=== PATIENT | female | born 1960 | race Caucasian/White ===

== ENCOUNTER 2021-08-06 07:30 | Outpatient (RCR) | payer OTHER, SELFPAY ==
--- NOTE | 2021-07-09 11:10 | PTOPEVAL ---
PHYSICAL THERAPY EVALUATION AND PLAN OF CARE Thank you for referring Jeana Amezcua to [facility].? The patient is scheduled to be seen for therapy? 2x/week for 4 weeks. Please review, sign, date and return this plan of care KEMI. I agree with and certify that the following plan of care is medically necessary. Referring Physician Date Evaluation Outpatient Past Medical History Musculoskeletal History Hx Other Musculoskeletal Disorders Yes: osteopenia Diagnosis right lateral hip pain Onset several months Subjective Information Pain in right hip started Query Text:As Reported By Patient/ several months ago, Family specifically after she played a couple of golf tournaments. The pain started at the top of the right hip on the side near the crest of the hip. Over the summer she would limp off of the leg and would avoid putting pressure on it. Over the last several months the pain has somewhat subsided except for some intermittent symptoms that occur more often when she stands and moves after sitting or resting. Had foot surgery in May and just got out of a special shoe yesterday (2nd metatarsal head bone spur removal and decreased length of the metatarsal) - has not done a lot over the last month and has been afraid to walk normally. Self Report Pain Assessment Right Hip(s) Reported Pain Level 5 Pain Description Aching Pain Frequency Chronic,Intermittent Greatest Pain Intensity 9 Pain Aggravating Factors Walking,Weight Bearing/ Standing Pain Behaviors None Pain Score Pain Score 5: Self Report Interventions Used Interventions Used By Clinicians Exercise Pain Relief Interventions Used By Exercise Patient Lower Extremity Muscle Strength Testing Hip Strength Left Hip Flexion Strength 5 Normal Hip Extension Strength 3+ Fair + Hip Abduction Strength 3- Fair - Hip Medial Rotation Strength 3+ Fair + Hip Lateral Rotation Strength 4- Good - Right Hip Flexion Strength 5 Normal Hip Extension Strength 3+ Fair
--- NOTE | 2021-08-04 08:47 | PCPTNOTE ---
Patient called & cancelled scheduled appointment this date stating something came up.
--- NOTE | 2021-08-06 08:09 | PTOPEVAL ---
PHYSICAL THERAPY DISCHARGE NOTE Thank you for referring Jeana Amezcua to [facility].? Please review, sign, date and return this plan of care KEMI. I agree with and certify that the following plan of care is medically necessary. Referring Physician Date Diagnosis right lateral hip pain Onset several months Subjective Information States that she is doing Query Text:As Reported By Patient/ overall very much better. The Family last two days she has not felt anything, but sometimes she will stand up and it will hurt for a few steps and then it stops. She does all of her exercises daily and finds them to be productive. Pain Frequency Intermittent Pain Behaviors None Pain Score Pain Score 0: Self Report Interventions Used Interventions Used By Clinicians Exercise Pain Relief Interventions Used By Exercise Patient Lower Extremity Muscle Strength Testing Hip Strength Left Hip Flexion Strength 5 Normal Hip Extension Strength 4 Good Hip Abduction Strength 4+ Good + Hip Medial Rotation Strength 4 Good Hip Lateral Rotation Strength 4 Good Right Hip Flexion Strength 5 Normal Hip Extension Strength 4 Good Hip Abduction Strength 4+ Good + Hip Medial Rotation Strength 4 Good Hip Lateral Rotation Strength 4 Good Knee Strength Bilateral Knee Flexion Strength 5 Normal Knee Extension Strength 5 Normal Gait Assessment Gait Pattern Assessment Gait Pattern No Deviations/Normal General Exercise General Exercises Side Right,Bilateral Exercise Location hip Exercise Type Active,Resistive,Stretching Exercise Description -walking and stair climbing Query Text:Record Sets, Reps, - lift training and Resistance, and Position discussion to keep back flat -discussed HEP and discussed how to create and A and B day schedule Exercise Comments . Rehab Teaching Rehab Teaching Teaching Topic Rehab Teaching Topic Components Anatomy/Physiology,Diagnosis, Home Program As Pertains To Safety,Technique,Therapy Prognosis Recipient Patient Learning Preferences Demonstration,Discussion Barriers to Learning None Readiness to Learn Good Response
== END 2021-08-06 14:43 | disposition home or self-care (01) ==
LOC: ANHPT 07:30
DX: M25.551 Pain in right hip (principal)
CPT/HCPCS: 97110; 97140; 97161

== ENCOUNTER → 2021-12-02 09:44 | Outpatient (CLI) | payer OTHER, SELFPAY ==
--- NOTE | ~2021-12-02 | MR_ITS ---
EXAMINATION: MR abdomen wo/w con INDICATION: Cystic lesions of the pancreas, cystic lesions of the kidneys, and indeterminate soft tis radha mass to the spleen on recent CT TECHNIQUE: Coronal SSFSE ARC, WATER:coronal LAVA-FLEX, Coronal 2D FIESTA FatSat, Axial SSFSE BH ARC, Axial 3D DualEcho BH, Axial SSFSE-IR, Axial DWI b=500, Axial 2D FIESTA FatSat, pre and dynamic postco ntrast Axial LAVA ARC, postcontrast Coronal In and Opposed phase LAVA FLEX COMPARISON: CT, 11/12/2021 CONTRAST: Multihance, 10 cc FINDINGS: Cysts of the liver measure up to 6 mm in the left hepatic lobe. The liver is otherwise unre markable. The spleen, gallbladder, and adrenal glands are normal. No cystic pancreatic lesions are id entified. Findings on the comparison CT likely reflect fat lobulation within the pancreas. The pancre atic duct is normal in caliber. There is no intrahepatic or extrahepatic biliary dilatation. There is an 11 mm cyst of the left kidney. An 8 mm cyst is present in the right kidney. There are no patholog ically enlarged abdominal lymph nodes. The 4 mm peritoneal nodule described adjacent to the spleen conroy s signal characteristics similar to the spleen, likely representing a small splenule. There are no di lated loops of bowel. No abnormal enhancement is present after contrast administration. IMPRESSION: 1. Benign findings as detailed above. Reviewed, dictated and finalized at location A.
[2021-12-02 10:09] LABS: Estimated Glomerular Filt Rate > 60
== END ==
DX: D37.9 Neoplasm of uncertain behavior of digestive organ, unspecified (principal)
CPT/HCPCS: 74183; A9577

== ENCOUNTER → 2021-12-11 14:24 | Outpatient (CLI) | payer OTHER, SELFPAY ==
--- NOTE | ~2021-12-11 | MR_ITS ---
EXAMINATION: MR pelvis wo/w con DATE: 12/11/2021 15:49 INDICATION: Pelvic mass TECHNIQUE: Magnetic resonance imaging (MRI) of the pelvis was performed without and with 15 mL Multih ance intravenous contrast. Fullfield sequences of the pelvis included axial and coronal T2-weighted S S FSE, coronal 2D FIESTA, axial T1-weighted FSPGR, axial dual-echo T1-weighted FSPGR and axial T1 cherie ghted LAVA. Small field of view sequences included axial, sagittal and coronal T2-weighted FSE cente red on the uterus and gerardo exa. Postcontrast sequences included a time course axial T1-weighted LAVA with full-field of view of the pelvis. COMPARISON: Outside institution imaging studies including ultrasound dated 12/04/2021, 04/15/2021 and C T dated 11/08/2021 FINDINGS: 1.9 x 1.5 cm low signal intensity lesion along the left side of the uterine body corresponding to the calcified mass on prior CT most most consistent with a calcified pedunculated and degenerated uterin e fibroid. Alternatively this could represent a calcified left ovary which is otherwise not identifie d. The right ovary is normal. The anteverted uterus is otherwise unremarkable with endometrial comple x measuring <2 mm. There is however prominent thickening of the high signal intensity mucosal layer o f the endocervical canal which measures approximately 1.3 cm in diameter and raises concern for cervi jacky cancer. Bladder is normal. Visualized portion of the bowels are unremarkable. No free fluid in th e pelvis. No pathologically enlarged pelvic or inguinal lymphadenopathy. Mild lumbar levocurvature wi th mild spondylosis. Normal bone marrow signal throughout. IMPRESSION: 1. Prominent mucosal thickening of the endocervical canal which measures 13 mm in diameter and raises concern for cervical cancer. Correlate with gynecologic exam and Pap smear. 2. 1.9 x 1.5 cm low signal intensity coarsely calcified mass along the left side of the uterine body. Differential would include a degenerated pedunculated uterine fibroid, calcified left ovary or heter otopic ossification related to fat necrosis. Reviewed, dictated and finalized at location A. IMPRESSION: 1. Prominent mucosal thickening of the endocervical canal which measures 13 mm in diameter and raises concern for cervical cancer. Correlate with gynecologic exam and Pap smear. 2. 1.9 x 1.5 cm low signal intensity coarsely calcified mass along the left carlos e of the uterine body. Differential would include a degenerated pedunculated ut erine fibroid, calcified left ovary or heterotopic ossification related to fat necrosis.
== END ==
DX: R19.00 Intra-abdominal and pelvic swelling, mass and lump, unspecified site (principal); R93.89 Abnormal findings on diagnostic imaging of other specified body structures
CPT/HCPCS: 72197; A9577

== ENCOUNTER 2022-12-20 08:00 | Outpatient (RCR) | payer OTHER, SELFPAY ==
--- NOTE | 2022-10-20 09:32 | PTOPEVAL1 ---
Assessment and note entered by Марина Burnham, PT Evaluation Information Assessment Status Evaluation Diagnosis L shoulder pain Onset Apr 2022 Subjective Information gradual increase in shoulder pain; no trauma or injury to shoulder; chronic shoulder pain; previous PT for shoulder about 3 yr ago, started doing the shoulder exercises from that therapy; have foam roller--lie on it and stretch shoulder out; had x rays years ago-- OA, no recent imaging; active and do weight exercises for fitness- 5 or 8 # hand weights; have pain in R shoulder also; Reported Pain Level Pain Score Self Report Additional Pain Score Comments pain range: 2-8/10 L shoulder, anterior shoulder, dull, kind of sharp; increase pain with use of L arm, lie on shoulder, pull off shirt over head; sometimes with sleeping and lie on side- hands fall asleep- both arms; decrease pain with rest; is not taking any pain med for shoulder; have not used heat/ice- instruct on PRN use; shoulder pain does not wake her up from sleeping, is not a good sleeper--get up to bathroom and nerve pain from small fiber neuropathy wakes her; Assessment PT Clinical Summary Jeana has the diagnosis of L shoulder pain. She has chronic back and B shoulder pain. She is active and does regular exercises for fitness and uses weights for shoulder exercises, 5 or 8#. Pain is increased with use of L arm, taking off shirt over her head. With the evaluation, she has full active ROM of shoulder, with painful motions of abduction and horizontal adduction; she has poor posture of trunk and shoulder, with scoliosis of back and winging of scapula. There is tenderness with palpation over bicipital groove. Skilled PT services are indicated for L shoulder tendonitis: modalities for pain control, therapeutic exercises to strengthen scapula/ thoracic musculature and improve positioning of GH joint, with eduction for home exercises and posture correction. Plan of Care Interventions Electrical Stimulation,Hot Pack/Cold Pack,Manual Therapy,Neuro Re-education,Patient/Caregiver Education,Therapeutic Activities,Therapeutic
--- NOTE | 2022-11-22 09:58 | PTOPPROG ---
Assessment and note entered by Марина Burnham, PT Evaluation Information Assessment Status d/c for Magan joe; eval back & R hip pain Diagnosis chronic R hip and low back pain Onset Apr 2022 Subjective Information Jeana reports: SHOULDER: shoulder is still hurting, but differently--was all in front at the bicep tendon, now when wake up, whole shoulder hurts; is doing her home exercises, but theraband tends to make more pain in shoulder; SHOULDER: pain range for the past week 2- 5/10; hurts over whole shoulder when wake up in AM, with taking off shirt--back of shoulder, kind of inside shoulder; can lie on L side for about 5 min; decrease pain with position change; is not using heat/ice and is not taking any pain meds; BACK: beginning of back pain 2016, had xrays; have had PT for back, but has been awhile; does some back exercises--pelvic tilts, bridges- sometimes; does some core work and planks; wants to play golf; no imaging done in the past few years; treadmill walking 40 minutes and is OK, walking on concrete bothers her back; sleeping is OK, pain when wake up; pain when lie on her R side; tries to stay active and do yard work; BACK: pain range of 0-5/10, overall back discomfort- hurts; increase pain with activity; decrease pain with position changes; does not use heat/ice or pain meds; discussed use of heat/ice PRN Assessment PT Clinical Summary Jeana has received 8 PT sessions for L shoulder pain; She presents with new order for R hip and low back pain. Compared to the initial eval for shoulder: pain rating at the low is the same; high rating was 8 and now is 5/10; continues to have pain with taking off her shirt and lying on her L side; shoulder abduction and horizontal adduction increase her pain; initially had point tenderness over bicep tendon, now is more widespread area of pain; strength of shoulder has improved and no longer has winging of the scapula; she has been educated on home exercises.
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
--- NOTE | 2022-12-20 08:43 | PTOPDC ---
Assessment and note entered by Марина Burnham, PT Evaluation Information Assessment Status Discharge Diagnosis chronic R hip and low back pain Onset Apr 2022 Subjective Information Jeana reports: is increasing her work outs for back and shoulder for fitness with hand weights; using 3# for shoulders; R lumbar area tends to be where the pain is; still have issues lying on her L shoulder; does have some pain with vacuuming pain range in the past week of 0-5 /10; increase pain with doing yard work, leaning forward and rotation of trunk; Oswestry self assessment score of 10% limitation in activity; decrease pain with rest and stretching; have used heat a few times; EDUCATION: body mechanics with yard work, alternate tasks, preventative stretches after awkward posture; use of heat, stretch, over counter meds after yard work; posture with vaccumming Reported Pain Level Pain Score Self Report 0-5/10 in low back Assessment PT Clinical Summary Jeana has received a total of 14 PT sessions, for her L shoulder and low back pain. This last treatment session has been for her back; Improvements with her back: self assessment Oswestry functional score from 28% to 10% limitation in activity level; trunk and hip strength and stabilization with activity; body mechanics and posture with home and work tasks; progression of HEP and activity tolerances; Her pain rating is the same at 0-5/10, but reports it is not as bad, able to do more before it starts hurting; The goals were partially met. Discharge PT services, and she is to continue with her home exercises and pain management techniques Plan of Care PT Services Indicated No
== END 2023-01-03 08:41 | disposition home or self-care (01) ==
LOC: ANHPT 08:00
DX: M25.512 Pain in left shoulder (principal)
CPT/HCPCS: 97110; 97112; 97140; 97161; 97530

== ENCOUNTER 2024-12-06 04:32 | Emergency (ER) | payer MEDICARE, OTHER, SELFPAY ==
[2024-12-06 04:33] VITALS: BP 156/79; PULSE 75; RESP 16; TEMP 36.4; O2SAT 98
--- OUTSIDE RECORDS SUMMARY | 2024-12-06 04:34 | XMS_ITS | Clinical Summary ---
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 10/27/2020 Active Cholecalciferol (VITAMIN D3) 50 MCG (2000 UT) Tab Take 1 tablet (50 mcg total) by mouth daily. 10/27/2020 Active PREMPRO 0.3-1.5 MG tablet Take 1 tablet by mouth daily. 10/27/2020 Active cycloSPORINE (RESTASIS) 0.05 % ophthalmic emulsion Apply 1 drop to eye every 12 (twelve) hours. Active ibandronate 150 MG tablet Take 1 tablet (150 mg total) by mouth monthly. On a break from this until after bone scan next year. 11/21/2020 Active [place]-3 Fatty Acids (FISH OIL) 500 MG capsule Take 500 mg by mouth 2 (two) times a day. Active Multiple Vitamins-Minera ls (CENTRUM SILVER ULTRA WOMENS OR) Take 1 tablet by mouth daily. Active gabapentin (NEURONTIN) 300 MG capsule Take 2 capsules (600 mg total) by mouth 3 (three) times daily. 600 morning, 600 2pm 600 evening/PM Active Active Problems No known active problems Encounters Date Type Department Care Team Description 10/12/2024 11:42 AM RUNNING RIGGER - 10/12/2024 11:59 PM [facility] Hospital Encounter [facility] [place] [address] Vitor Marcus NP Discharge Disposition: Home or Self Care (Routine Discharge) 10/12/2024 Travel from Last 3 Months Immunizations Immunization Administration Dates Next Due PFIZER COVID-19 (ORIGINAL FO RMULATION, PURPLE CAP) mRNA, LNP-S, PF, 30 MCG/0.3 ML DOSE 08/30/2020,08/09/2020 Family History Medical History Relation Comments COPD Brother prostate leukemia Father COPD Mother No Known Problems Sister Relation Status Comments Brother Alive Father Mother Sister Alive Social History Tobacco Use Types Packs/Day Years Used Date Smoking Tobacco: Never Smokeless Tobacco: Never Comments No Sex and Gender Information Value Date Recorded Sex Assigned at Female 10/12/2024 11:37 AM RUNNING RIGGER Legal Sex Female 4:03 PM CDT Gender Identity Not on file Sexual Orientation Not on file Last Filed Vital Signs Vital Sign Reading Time Taken Comments Blood Pressure 122/69 07/03/2024 10:30 AM RUNNING RIGGER Pulse 85 07/03/2024 10:30 AM RUNNING RIGGER Temperature 36.1 C (97 F) 07/03/2024 10:30 AM RUNNING RIGGER Respiratory Rate 16 07/03/2024 10:3 0 AM RUNNING RIGGER Oxygen Saturation 100% 07/03/2024 10: 30 AM RUNNING RIGGER Inhaled Oxygen Concentration - - Weight 52.1 kg (114 lb 13.8 oz) 07/03/2024 6:57 AM RUNNING RIGGER Height 168.9 cm (5' 6.5 ) 07/03/2024 6:57 AM RUNNING RIGGER Body Mass Index 18.26 07/03/2024 6:57 AM RUNNING RIGGER Plan of Treatment Health Maintenance Due Date Last Done Comments Colorectal Cancer Screening Colonoscopy (10 Years) 1959 Hepatitis C 1977 COVID-19 Vaccine ( season) 2024 07/20/2023, 08/30/2020, 08/09/2020 Mammogram Screening 10/12/2026 10/12/2024, 10/11/2023, 11/11/2022, Additional history exists DTaP, Tdap and Td Vaccines (3 - Td or Tdap) 11/07/2028 11/07/2018, 10/28/2008 RSV Immunization or 60+ Years (1 - 1-dose 75+ series) 2034 Zoster Vaccines Completed 01/08/2020, 09/28/2019 Dexa Scan (General) Completed 10/07/2022, 08/25/2020, 08/09/2018 Pneumococcal Vaccine: 50+ Years Completed 10/02/2024 Meningococcal B Vaccine Aged Out No l onger eligible based on patient's age to complete this topic Meningococcal Vaccine Aged Out No bryce jc eligible based on patient's age to complete this topic RSV Immunizations Under 20 Months Aged Out No longer eligible based on patient's age to complete this topic Medical Devices Implanted Type 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 Device 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 Shelf Expiration Date Model / Serial / Lot Snap Off Screw 2.0mm X 12mm Implanted:Qty: 1 on 06/09/2021 by Justo Prabhakar DPM at [facility] Screw Right: Toe [employer] [id number] / / Description:2nd metatarsal Cannulated Screw Implanted:Qty: 1 on 07/03/2024 by Justo Prabhakar DPM at [facility] Screw Left: Foot [employer] [id number] 07/28/2030 [id number] / / [id number] [employer] Edge Screw Implanted:Qty: 1 on 07/03/2024 by Justo Prabhakar DPM at [facility] Screw Left: Toe [employer] [id number] 02/29/2032 [id number] / / [id number] Description:2ND TOE Procedures Procedure Name Priority Date/Time Associated Diagnosis Comments MG SCREENING W LU JENSEN DIGI Routine 10/12/2024 12:05 PM RUNNING RIGGER Encounter for screening mammogram for malignant neoplasm of breast BONE DENSITY/DEXA Routine 10/07/2022 11: 02 AM RUNNING RIGGER Encounter for screening for osteoporosis from Last 3 Months or Most Recently Relevant to Health Maintenance Results * MG SCREENING W LU JENSEN DIGI (10/12/2024 12:05 PM RUNNING RIGGER) Anatomical Region Laterality Modality Breast Bilateral Mammography 10/12/2024 1:09 PM RUNNING RIGGER Impressions 10/12/2024 1:10 PM RUNNING RIGGER ===== IMPRESSION: ===== 1. Stable mammographic appearance with no new findings to suggest malignancy in either breast. Assessment: ACR BI-RADS 2 - BENIGN FINDING(S) Recommendation: 1:Routine Screening Bilateral Comments: Ordered By: VITOR MARCUS Interpreted By: Yuri Milner MD, 10/12/2024 1:09 PM Narrative 10/12/2024 1:10 PM RUNNING RIGGER [facility] [address] [place] [address] Examination: Digital bilateral screening mammogram with 3D Tomosynthesis Exam Date/Time: 10/12/2024 11:45 AM Reason For Exam: Benign right biopsy 2020. No personal or family history of breast cancer. No current complaints. Comparison: Mammograms from 10/11/2023 10/07/2022 09/30/2021 Technique: Digital screening mammography of both breasts was performed in addition to 3-D Tomosynthesis technique. This study was read with the assistance of a computer-aided detection system. Tissue density: The breasts are heterogeneously dense, which may obscure small masses. Findings: Biopsy marker again seen on the right. Benign axillary lymph nodes again seen. Benign round calcifications again seen. No suspicious interval change in parenchyma bilaterally from prior studies. There is no new focal asymmetry, dominant mass lesion, area of skin thickening, or cluster of suspicious appearing calcifications in either breast to suggest malignancy. us Vitor Marcus [facility] MAMMO Final Re sult * BONE DENSITY/DEXA (10/07/2022 11:02 AM RUNNING RIGGER) Anatomical Region Laterality Modality Bone Mammography 10/07/2022 11:0 6 AM RUNNING RIGGER Impressions 10/07/2022 11:07 AM RUNNING RIGGER IMPRESSION: WHO Classification: osteopenia. 4.5% interval decrease in bone mineral density of the right hip from 2020 comparison. FRAX: 1.0% chance of hip fracture and 8.2% chance of major osteoporotic fracture over the next 10 years. Referred By: VITOR MARCUS Interpreted By: Yuri Milner MD, 10/07/2022 11:06 AM Narrative 10/07/2022 11:07 AM RUNNING RIGGER Examination: Bone Density Axial Exam Date/Time: 10/07/2022 10:48 AM Reason For Exam: Encounter for screening for osteoporosis Postmenopausal Comparison: 08/25/2020 DEXA scan Findings: DEXA bone densitometry The bone mineral density (BMD) was determined by dual-energy x-ray absorptiometry, the results are as follows: AP Lumbar Spine L1 through L4 BMD Patient (GM/SQCM): 0.793 T-Score (Standard deviations from young adult peak bone density): -2.3 Right femoral neck: BMD Patient (GM/SQCM): 0.659 T-Score (Standard deviations from young adult peak bone density): -1.7 Total Right femur: BMD Patient (GM/SQCM): 0.719 T-Score (Standard deviations from young adult peak bone density): -1.8 Recommendations: All patients should ensure an adequate intake of dietary calcium and vitamin D. The NOF recommend adults under the age of 50 need 1000 mg of calcium and 400-800 IU of vitamin D daily. Effective therapy for the prevention and treatment of osteoporosis include biphosphonates. Follow-up: People with diagnosed cases of osteoporosis or at high risk for fracture should have regular bone mineral density test. For patients eligible for Medicare, routine testing is allowed once every 2 years. Testing frequency can be increased to one year for patients who have rapidly progressing disease, those who are receiving or discontinuing medical therapy to restore bone mass, or have additional risk factors. Procedure Note Yuri Milner MD - 10/07/2022 Examination: Bone Density Axial Exam Date/Time: 10/07/2022 10:48 AM Reason For Exam: Encounter for screening for osteoporosis Postmenopausal Comparison: 08/25/2020 DEXA scan Findings: DEXA bone densitometry The bone mineral density (BMD) was determined bydual-energy x-ray absorptiometry, the results are as follows: AP Lumbar Spine L1 through L4 BMD Patient (GM/SQCM): 0.793 T-Score (Standard deviations from young adult peak bonedensity): -2.3 Right femoral neck: BMD Patient (GM/SQCM): 0.659 T-Score (Standard deviations from young adult peak bonedensity): -1.7 Total Right femur: BMD Patient (GM/SQCM): 0.719 T-Score (Standard deviations from young adult peak bonedensity): -1.8 Recommendations: All patients should ensure an adequate intake of dietary calcium andvitamin D. The NOF recommend adults under the age of 50 need 1000 mg ofcalcium and 400-800 IU of vitamin D daily. Effective therapy for theprevention and treatment of osteoporosis include biphosphonates. Follow-up: People with diagnosed cases of osteoporosis or at high risk for fractureshould have regular bone mineral density test. For patients eligible forMedicare, routine testing is allowed once every 2 years. Testing frequencycan be increased to one year for patients who have rapidly progressingdisease, those who are receiving or discontinuing medical therapy torestore bone mass, or have additional risk factors. IMPRESSION: WHO Classification: osteopenia. 4.5% interval decrease in bone mineraldensity of the right hip from 2020 comparison. FRAX: 1.0% chance of hip fracture and 8.2% chance of major osteoporoticfracture over the next 10 years. 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
--- OUTSIDE RECORDS SUMMARY | 2024-12-06 04:35 | XMS_ITS | Continuity of Care Document ---
Author Name [facility] Organization [facility] Care Team Providers Care Executive Compensation Analyst Name Role Phone [facility] Unavailable Unavailable Problems Combined list of problems from Department of Defense and Veterans Affairs facilities. It does not include entries that were removed or entered in error. Problem Status Onset Date Problem Type Date of Resolution Comments Source Vaccination given Active 11/06/2024 Diagnosis 0 [facility] Vaccination given Active 10/23/2024 Diagnosis 0 [facility] Well female adult Active 09/27/2024 Diagnosis 6 130C[facility]Af[facility] Basal cell carcinoma of skin Active Condition 6130C-A f-C- [facility] Dysplasia of cervix Active Condition 00[facility] Osteopenia Active Condition [facility] Osteoporosis Active Condition [facility] Small fiber neuropathy Active Condition 6130C-Af[facility]C- [facility] Medications Combined list of outpatient medications from Department of Defense and Veterans Affairs facilities.Medications provided include 1) outpatient medications from the last 15 months, and 2) patient-reported medications. Medication Details Route Status Patient Instructions Prescription Expires Prescription Number Last Dispense Date Ordering Provider Order Date Order Qty Source Boniva 150 mg oral tablet 1 tab(s), Oral, every month, # 3 tab(s), 3 total refill(s ), [facility], Pharmacy : [facility] Oral (given by mouth) Ordered 4 2022 3.0 0055C-3 [facility] calcium (as carbonate) 500 mg oral tablet See Instruct ions, take 1 tab bid, # 180 tab(s), 3 total refill(s ), [facility] Ordered 5 2023 180.0 0055C-3 [facility] calcium (as carbonate) 600 mg oral tablet 180 tab(s), 0 total refill(s ), Soft Stop Complet ed 10/03/20232023 0055C-3 75th SONIA [facility] calcium (as carbonate) 600 mg oral tablet 1 tab(s), Oral, BID, # 180 tab(s), 3 total refill(s ), [facility], Pharmacy : [facility] Oral (given by mouth) Discont inued 04/17/2024 4 2023 180.0 [facility] Centrum Silver oral tablet 1 tab(s), Oral, Daily, # 90 tab(s), 3 total refill(s ), [facility], [facility] Oral (given by mouth) Ordered 2022 90.0 0055C-[address] [facility] cholecalcif [place] 50 mcg (2000 intl units) oral tablet TAKE ONE TABLET BY MOUTH DAILY, # 90 EA, 2 total refill(s ), Acute Discont inued 04/13/2023 2 2022 90.0 Ambulat ory Pharmac y conjugated estrogens-m edroxyproge sterone 0.3 mg-1.5 mg oral tablet TAKE ONE TABLET BY MOUTH EVERY DAY, # 84 EA, 2 total refill(s ), Acute Complet ed 2023 2 2022 84.0 Ambulat ory Pharmac y cycloSPORIN E 0.05% (PF) eye drops UD [30EA] See Instruct ions, # 60 EA, 6 total refill(s ), Hard Stop Complet ed 07/31/2024 4 2023 60.0 Ambulat ory Pharmac y gabapentin Oral, 0 total refill(s ), [facility] (given by [facility]) Ordered 2023 6130C-A f-C-375 [facility] gabapentin 100 mg oral capsule 60 cap(s), 0 total refill(s ), Soft Stop Discont inued 04/13/20232022 0055C-3 75th SONIA [facility] gabapentin 300 mg capsule 600 mg, Oral, BID, # 360 EA, 3 total refill(s ), Hard Stop Oral (given by mouth) Discont inued 05/02/2023 3 2022 360.0 Ambulat ory Pharmac y gabapentin 300 mg capsule See Instruct ions, # 120 EA, 11 total refill(s ), Hard Stop Complet ed 02/22/2024 3 2023 120.0 Ambulat ory Pharmac y gabapentin 300 mg capsule See Instruct ions, Oral, # 630 EA, 3 total refill(s ), Hard Stop Oral (given by mouth) Ordered 04/19/2025 5 2024 630.0 Ambulat ory Pharmac y gabapentin 300 mg capsule See Instruct ions, Oral, TID, # 540 EA, 3 total refill(s ), Hard Stop Oral (given by mouth) Discont inued 04/19/2024 4 2023 540.0 Ambulat ory Pharmac y gabapentin 300 mg oral capsule 120 cap(s), 0 total refill(s ), Soft Stop Discont inued 04/13/20232022 0055C-3 [facility] gabapentin 300 mg oral capsule 360 cap(s), 0 Refill(s ), 0 total refill(s ), Soft Stop Discont inued 10/03/20232023 6130C-A f-C-[facility] [place] gabapentin 300 mg oral capsule TAKE ONE CAPSULE THREE TIMES DAILY, # 270 EA, 2 total refill(s ), Acute Discont inued 10/03/2023 3 2023 270.0 Ambulat ory Pharmac y gabapentin 300 mg oral capsule 540 cap(s), 0 Refill(s ), 0 total refill(s ), Soft Stop Discont inued 04/17/20242023 0055C-3 [facility] ibandronate 150 mg oral tablet 3 tab(s), 0 total refill(s ), Soft Stop Discont inued 04/13/20232022 0055C-3 [facility] ibandronate 150 mg oral tablet 3 tab(s), 0 Refill(s ), 0 total refill(s ), Soft Stop Discont inued 04/17/20242023 0055C-3 75[facility] ibandronate 150 mg tablet See dose instruct ions in comments , # 3 EA, 1 total refill(s ), Acute Complet ed 2023 3 2022 3.0 Ambulat ory Pharmac y metroNIDAZO LE 1% gel [60g] See Instruct ions, # 60 g, 2 total refill(s ), Hard Stop Ordered 08/03/2025 5 2024 60.0 Ambulat ory Pharmac y omega-3 polyunsatur ated fatty acids 1000 mg oral capsule TAKE ONE CAPSULE BY MOUTH THREE TIMES A DAY WITH A MEAL, # 270 EA, 3 total refill(s ), Acute Complet ed 04/14/20232022 270.0 Ambulat ory Pharmac y Oyster Jacky 1250 mg (500 mg elemental calcium) oral tablet 180 tab(s), 0 Refill(s ), 0 total refill(s ), Soft Stop Cancele d 04/17/20242023 0055C-3 [facility] Prempro 0.3 mg-1.5 mg oral tablet 84 tab(s), 0 total refill(s ), Soft Stop Discont inued 04/13/20232022 0055C-3 [facility] Prempro 0.3 mg-1.5 mg oral tablet 1 tab(s), Oral, every other day, # 56 tab(s), 4 total refill(s ), [facility], Pharmacy : [facility] Oral (given by mouth) Ordered 5 2023 56.0 0055C-3 [facility] Prempro 0.3 mg-1.5 mg oral tablet 1 tab(s), Oral, Daily, # 90 tab(s), 3 total refill(s ), [facility], Pharmacy : [facility] Oral (given by mouth) Discont inued 04/17/2024 3 2023 90.0 0055C-3 [facility] Restasis 0.05% ophthalmic emulsion 180 unknown unit, 0 total refill(s ), Soft Stop Discont inued 10/03/20232023 0055C-3 75th [facility] [place] scopolamine 1 mg/72 hr transdermal film, extended release 1 patch(es ), TransDer mal, every 72 hr, # 10 patch(es ), 0 total refill(s ), Tia young, Pharmacy : [facility] TransD ermal (apply on the skin) Complet ed 04/17/2024 2023 10.0 6130C-A f-C-375 Th [facility] scopolamine 1 mg/72 hr transdermal film, extended release 10 patch(es ), 0 Refill(s ), 0 total refill(s ), Soft Stop Discont inued 04/17/20242023 0055C-3 75th [facility] [place] Vitamin D3 50 mcg (2000 intl units) oral tablet 90 tab(s), 0 total refill(s ), Soft Stop Ordered 2022 0055C-3 75th [facility] Allergies, Adverse Reactions, Alerts Combined list of allergies from Department of Defense and Veterans Affairs facilities. It does not include entries that were removed or entered in error. Substance Category Reaction Severity Reaction type Status Date Reported Comments Source Latex Allergy to substance Rash Moderate Active 04/13/2023 0055C-37 5th [facility] Immunizations Combined list of available immunizations from the Department of Defense and Veterans Affairs facilities. 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 Status Comments Source typhoid vaccine, parenteral 2024 ARCELIARGARCIAFA JAZMIN Campbell cynthia, left (delt oid) [id number] sanofi pasteur complet ed typhoid vaccine, parentera l 11/06/24 Given 0055C-3 75th [facility] [place] hepatitis A adult vaccine 2024 SINANGARCIAFA JAZMIN Campbell cynthia, right (delt oid) [id number] [employer] ne complet ed hepatitis A adult vaccine 10/23/24 Given 0055C-3 75th [facility] [place] pneumococcal 20-valent conjugate vaccine 2024 ELADIA Thompsonul cynthia, right (delt oid) [id number] Pfizer Inc complet ed pneumococ jacky 20-valent conjugate vaccine 10/02/24 Given 0055C-3 [facility] COVID-19 vaccine(Comir ravinder 12y+) 2022 CASSIDY ROBROSAMARIA marie, right (delt oid) [id number] [employer] complet ed COVID-19 vaccine(C omirnaty 12y+) 07/20/23 Given 0055C-3 [facility] COVID Vaccine Pfizer 2020 ALEXRGARCIAFA [id number] 208 complet ed COVID Vaccine Pfizer 08/30/20 Recorded 0055C-3 [facility] COVID Vaccine Pfizer 2019 ALEXRGARCIAFA NTAUZZI 208 complet ed COVID Vaccine Pfizer 08/09/20 Recorded 0055C-3 [facility] zoster vaccine, inactivated 2019 zzRig ht Arm [id number] 187 GlaxoSmithKli ne complet ed zoster vaccine, inactivat ed 01/08/20 Given Ambulat ory Pharmac y zoster vaccine, inactivated 2019 [id number] 187 GlaxoSmithKli ne complet ed zoster vaccine, inactivat ed 01/08/20 Given Ambulat ory Pharmac y zoster vaccine, inactivated 2019 zLuis Fernando t Arm [id number] 187 GlaxoSmithKli ne complet ed zoster vaccine, inactivat ed 09/28/19 Given Ambulat ory Pharmac y tetanus-dipht h toxoids (Td) adult/adol 2018 zzRig ht Arm [id number] 09 sanofi pasteur complet ed tetanus-d iphth toxoids (Td) adult/ado l 11/07/18 Given Ambulat ory Pharmac y tetanus-dipht h toxoids (Td) adult/adol 2018 [id number] 09 sanofi pasteur complet ed tetanus-d iphth toxoids (Td) adult/ado l 11/07/18 Given Ambulat ory Pharmac y hepatitis B adult vaccine 2008 zzRig ht Arm [id number] 43 GlaxoSmithKli ne complet ed hepatitis B adult vaccine 10/28/08 Given Ambulat ory Pharmac y tetanus, diphtheria, acellular pertu is 2008 zzLef t Arm [id number] 115 GlaxoSmithKli ne complet ed tetanus, diphtheri a, acellular pertussis 10/28/08 Given Ambulat ory Pharmac y hepatitis B adult vaccine 2008 [id number] 43 GlaxoSmithKli ne complet ed hepatitis B adult vaccine 10/28/08 Given Ambulat ory Pharmac y tetanus, diphtheria, acellular pertu is 2008 [id number] 115 GlaxoSmithKli ne complet ed tetanus, diphtheri a, acellular pertussis 10/28/08 Given Ambulat ory Pharmac y HepB, Adult 2008 CAPTCHRISTOPH ERRWEISGARBER [id number] 43 complet ed Result Comment: Route: Intramusc ular(IM) Manufactu rer: Bobbi gan (SKB) 6130C-A f-C-[facility] varicella virus vaccine 2001 21 complet ed varicella virus vaccine 10/13/01 Given Ambulat ory Pharmac y varicella virus vaccine 2000 21 complet ed varicella virus vaccine 04/14/01 Given Ambulat ory Pharmac y hepatitis B adult vaccine 2000 43 complet ed hepatitis B adult vaccine 04/03/01 Given Ambulat ory Pharmac y HepB, Adult 2000 CAPTCHRISTOPH ERRWEISGARBER 43 complet ed Result Comment: Route: Unknown Manufactu rer: () 6130C-A f-C-375 [facility] hepatitis B adult vaccine 2000 43 complet ed hepatitis B adult vaccine 03/03/01 Given Ambulat ory Pharmac y HepB, Adult 2000 CAPTCHRISTOPH ERRWEISGARBER 43 complet ed Result Comment: Route: Unknown Manufactu rer: () 6130C-A f-C-375 [facility] Results Combined list of recent chemistry, hematology and other laboratory results from Department of Defense and Veterans Affairs, ranging from 15 months to all on record, depending upon the facility. Order Name Results Value Reference Range Date Interpretation Specimen Comments Source Chemistry eGFR CKD EPI 82 mL/min/1 .73_m2 09/05 Interpretiv e Data: Estimated Glomerular Filtration Rate (eGFR) calculated using the 2020 Chronic Kidney Disease-Epi demiology (CKD-EPI) Collaborati on creatinine equation; units of measure are mL/min/1.73 m2. Results are only valid for adults (>=18 years) whose serum creatinine is in steady state. eGFR calculation s are not valid for patients with acute kidney injury and for patients on dialysis. Creatinine- based estimates of kidney function may also be inaccurate in patients with reduced creatinine generation due to decreased muscle mass (e.g., malnutritio n, severe hypoalbumin emia, sarcopenia, chronic neuromuscul ar disease, amputations , severe heart failure or liver disease) and in patients with increased creatinine generation due to increased muscle mass (e.g., muscle builders, anabolic steroids) or increased dietary intake. CKD is diagnosed based on abnormaliti es of kidney structure or function, present for >3 months, with implication s for health and disease. CKD is classified and staged based on cause, eGFR and albuminuria (quantified as urine albumin to creatinine ratio). An eGFR >60 mL/min/1.73 m2 in the absence of increased urine albumin excretion or structural abnormaliti es does not CKD. eGFR provides only an estimate of measured GFR within +/- 30% for most patients. As mentioned, nutritional status and muscle mass, among many factors, may lead to inaccuracy in the estimate. Consider ordering the creatinine- cystatin C panel if better accuracy is needed for clinical decision-jessica olson. eGFR (mL/min/1.7 3 m2) CKD stage Interpretat ion Normal 60-89 Mild decrease 45-59 Mild to moderate decrease 30-44 Moderate to severe decrease 15-29 Severe decrease <15 Kidney failure -3 75th [facility] Hematolog y Baso Absolute 0.0 x10^3/mc L 0.0 - 0.1103 09/05 N 0055A-[address] [place] [address] Hematolog y Lymph Absolute 1.2 x10^3/mc L 1.2 - 4.0103 09/05 N 0055A-[address] [place] [address] Hematolog y Eosinophil % Auto 3 % 0 - 5 09/05 N 0055A-[address] [place] [address] Hematolog y Lymphocyte % Auto 31.9 % 20.0 - 40.0 09/05 N 0055A-[address] [place] [address] Hematolog y Basophil % Auto 0.5 % 0.0 - 2.5 09/05 N 0055A-[address] [place] [address] Hematolog y Eos Absolute 0.1 x10^3/mc L 0.0 - 0.7103 09/05 N 0055A-[address] [place] [address] Hematolog y Neutro Absolute 2.0 x10^3/mc L 2.0 - 7.0103 09/05 N 0055A-[address] [place] [address] Hematolog y Neutrophil % Auto 52.5 % 46.0 - 77.0 09/05 N 0055A-[address] [place] [address] Hematolog y Monocyte % Auto 12 % 1 - 12 09/05 N 0055A-[address] [place] [address] Hematolog y [facility] Absolute 0.5 x10^3/mc L 0.2 - 0.8103 09/05 N 0055A-[address] [place] [address] Chemistry Calcium 9.6 mg/dL 8.4 - 10.2 09/05 N 0055A-[address] [place] [address] Chemistry BUN/Creat Ratio 20 mg/dL 12 - 20 09/05 N 0055A-[address] [place] [address] Chemistry BUN 16 mg/dL 7 - 20 09/05 N 0055A-[address] [place] [address] Chemistry CO2 28 mmol/L 22 - 29 09/05 N 0055A-[address] [place] [address] Chemistry Chloride 107 mmol/L 98 - 107 09/05 N 0055A-[address] [place] [address] Chemistry Potassium Lvl 4.1 mmol/L 3.5 - 5.1 09/05 N 0055A-[address] [place] [address] Chemistry Glucose Lvl 87 mg/dL 74 - 99 09/05 N 0055A-[address] [place] [address] Chemistry Creatinine Level 0.80 mg/dL 0.57 - 1.11 09/05 N 0055A-[address] [place] [address] Chemistry Sodium 143 mmol/L 136 - 145 09/05 N 0055A-[address] [place] [address] Chemistry AGAP 8.00 0.00 - 15.00 09/05 N 0055A-[address] [place] [address] Hematolog y WBC 3.8 x10^3/mc L 4.0 - 11.0103 09/05 L 0055A-[address] [place] [address] Hematolog y RDW 11.9 % 11.0 - 14.9 09/05 N 5A-[address] [place] [address] Hematolog y MCH 32 pg 28 - 33 09/05 N 0055A-[address] [place] [address] Hematolog y Hemoglobin 13.9 g/dL 11.0 - 15.0 09/05 N 5A-[address] [place] [address] Hematolog y Hematocrit 41 % 34 - 46 09/05 N 5A-[address] [place] [address] Hematolog y Platelets 175.0 x10^3/mc L 150.0 - 450.0103 09/05 N -[address] [place] [address] Hematolog y RBC 4.4 x10^6/mc L 3.6 - 5.0106 09/05 N -[address] [place] [address] Hematolog y MPV 10.8 fL 7.4 - 10.4 09/05 H - [address] [place] [address] Hematolog y MCHC 33.7 g/dL 33.0 - 36.5 09/05 N -[address] [place] [address] Hematolog y MCV 94 fL 80 - 97 09/05 N -[address] [place] [address] Chemistry eAvg Glucose 94 mg/dL 09/05-[address] [place] [address] Chemistry Hemoglobin A1c 4.9 % 4.0 - 5.6 09/05 N Interpretiv e Data: Normal: 4.0 - 5.6% Increased Risk: 5.7 - 6.4% Diabetic Range: 6.5% For patients without diabetes, the normal range for the hemoglobin A1c test is between 4% and 5.6%. Hemoglobin A1c levels between 5.7% and 6.4% indicate increased risk of diabetes, and levels of 6.5% or higher indicate diabetes. Because studies have repeatedly shown that out-of-cont rol diabetes results in complicatio ns from the disease, the goal for people with diabetes is a hemoglobin A1c less than 7%. The higher the hemoglobin A1c, the higher the risks of developing complicatio ns related to diabetes. If confirmatio n is needed, consider recalling the patient and ordering Hemoglobin Electrophor esis. [address] [place], [place] [address] Chemistry HDL Cholesterol 64 mg/dL 40 - 59 09/05 H Interpretiv e Data: HDL (HIGH DENSITY LIPOPROTEIN ): ADULTS: Low: < 40 mg/dL High: >/= 60 mg/dL AGES 0 -19: Low: < 40 mg/dL Borderline Low: 40 - 45 mg/dL Acceptable: > 45 mg/dL [address] [place], [place] [address] Chemistry Cholesterol Total 189 mg/dL 09/05 N Interpretiv e Data: According to the [place] [employer] : AGES 0-19: Desirable: < 170 mg/dL Borderline High: 170-199 mg/dL High Blood Cholesterol : >/= 200 mg/dL ADULTS: Desirable < 200 mg/dL Borderline High: 200-239 mg/dL High Blood Cholesterol : >/= 240 mg/dL [facility] Chemistry Chol/HDL 3 mg/dL 09/[address] [place], [place] [address] Chemistry Triglycerid es 59 mg/dL 7 - 149 09/05 N Interpretiv e Data: AGES 0-9: Desirable: < 75 mg/dL Borderline High: 75-99 mg/dL High: >/= 100 mg/dL AGES 10-19: Desirable: < 90 mg/dL Borderline High: 90-129 mg/dL High: >/= 130 mg/dL ADULTS: Desirable: < 150 mg/dL Borderline High: 150-199 mg/dL High: >/= 240 mg/dL Very High: >/= 500 mg/dL [address] [place], [place] [address] Chemistry LDL/HDL 2 09/[address] [place] [address] [facility] Chemistry LDL 118 mg/dL 100 - 130 09/05 N Interpretiv e Data: AGES 0-19: Desirable: < 110 mg/dL Borderline High: 110-129 mg/dL High: >/= 130 mg/dL ADULTS: Desirable: <100 mg/dL Near/above optimal: 100-130 mg/dL Borderline High: 131-159 mg/dL High: 160-189 mg/dL Very High: 190 mg/dL [address] [place], [place] [address] Chemistry Uric Acid 4.6 mg/dL 2.6 - 6.0 05/[address] [place] [address] [facility] Chemistry Triglycerid es 55 mg/dL 7 - 149 04/19 N Interpretiv e Data: AGES 0-9: Desirable: < 75 mg/dL Borderline High: 75-99 mg/dL High: >/= 100 mg/dL AGES 10-19: Desirable: < 90 mg/dL Borderline High: 90-129 mg/dL High: >/= 130 mg/dL ADULTS: Desirable: < 150 mg/dL Borderline High: 150-199 mg/dL High: >/= 240 mg/dL Very High: >/= 500 mg/dL [address] [place] [address] [facility] Chemistry LDL/HDL 2 04/[address] [place] [address] [facility] Chemistry LDL 124 mg/dL 100 - 130 04/19 N Interpretiv e Data: AGES 0-19: Desirable: < 110 mg/dL Borderline High: 110-129 mg/dL High: >/= 130 mg/dL ADULTS: Desirable: <100 mg/dL Near/above optimal: 100-130 mg/dL Borderline High: 131-159 mg/dL High: 160-189 mg/dL Very High: 190 mg/dL [address] [place] [address] [facility] Chemistry HDL Cholesterol 69 mg/dL 40 - 59 04/19 H Interpretiv e Data: HDL (HIGH DENSITY LIPOPROTEIN ): ADULTS: Low: < 40 mg/dL High: >/= 60 mg/dL AGES 0 -19: Low: < 40 mg/dL Borderline Low: 40 - 45 mg/dL Acceptable: > 45 mg/dL [address] [place] [address] Chemistry Cholesterol Total 202 mg/dL 04/19 H Interpretiv e Data: According to the [place] [employer] : AGES 0-19: Desirable: < 170 mg/dL Borderline High: 170-199 mg/dL High Blood Cholesterol : >/= 200 mg/dL ADULTS: Desirable < 200 mg/dL Borderline High: 200-239 mg/dL High Blood Cholesterol : >/= 240 mg/dL [address] [place] [address] [facility] Chemistry Chol/HDL 3 mg/dL 04/[address] [place] [address] [facility] Chemistry Hemoglobin A1c 4.9 % 4.0 - 5.6 04/19 N Interpretiv e Data: Normal: 4.0 - 5.6% Increased Risk: 5.7 - 6.4% Diabetic Range: 6.5% For patients without diabetes, the normal range for the hemoglobin A1c test is between 4% and 5.6%. Hemoglobin A1c levels between 5.7% and 6.4% indicate increased risk of diabetes, and levels of 6.5% or higher indicate diabetes. Because studies have repeatedly shown that out-of-cont rol diabetes results in complicatio ns from the disease, the goal for people with diabetes is a hemoglobin A1c less than 7%. The higher the hemoglobin A1c, the higher the risks of developing complicatio ns related to diabetes. If confirmatio n is needed, consider recalling the patient and ordering Hemoglobin Electrophor esis. 0055A-3 75th [facility] Chemistry eAvg Glucose 94 mg/dL 04/19 0055A-3 75th [facility] AP Specimens HPV Genotype 16 Negative 20 (04/17/24 11:14 AM) Negative 04/17 N Interpretiv e Data: HPV GENOTYPE 16 Negative: NEGATIVE for HPV DNA genotype 16 DNA. HPV GENOTYPE 16 Positive: POSITIVE for HPV genotype 16 DNA. The leonor HPV Test is a qualitative in vitro test for the detection Human Papillomavi pritesh in clinician-c ollected cervical and vaginal specimens. It detects the following high-risk HPV types 16, 18, 31, 33, 35, 39, 45, 51, 52, 56, 58, 66, and 68. Note: The modificatio n to specimen source of vaginal was developed and its performance characteris tics determined by [facility], Molecular Diagn[facility]. Vaginal source has not been cleared or approved by the U. S. Food and Drug Administrat [facility]. This modified vaginal specimen HPV test is for clinical purposes. This laboratory is certified under the Clinical Laboratory Improvement Amendments of 1988 (CLIA-88) as qualified to perform high complexity clinical laboratory testing. Clinician collected PreservCyt ThinPrep vaginal specimen are an approved additional specimen source, based on an internal laboratory validation. Limitations : A negative result does NOT preclude the presence of HPV infection because results depend on adequate specimen collection, absence of inhibitors and sufficient DNA to be detected. Correlation with cytologic findings is recommended as applicable. Questions about process or methodology contact Molecular Department at or [phone]. 0109A-A BAM-FS H AP Specimens HPV Typing High Risk Negative 19 (8/27/24 11:14 AM) Negative 04/17 N Interpretiv e Data: HPV Typing High Risk Negative: NEGATIVE for concurrentl y detecting the rest of the 12 high risk types HPV DNA (31,33,35,3 9,45,51,52, 56,58,59,66 and 68) without differentia tion. HPV Typing High Risk Positive: POSITIVE for concurrentl y detecting the rest of the 12 high risk types HPV DNA (31,33,35,3 9,45,51,52, 56,58,59,66 and 68) without differentia tion. The leonor HPV Test is a qualitative in vitro test for the detection Human Papillomavi pritesh in clinician-c ollected cervical and vaginal specimens. It detects the following high-risk HPV types 16, 18, 31, 33, 35, 39, 45, 51, 52, 56, 58, 66, and 68. Note: The modificatio n to specimen source of vaginal was developed and its performance characteris tics determined by [facility], [facility]. Vaginal source has not been cleared or approved by the U. S. Food and Drug Administrat [facility]. This modified vaginal specimen HPV test is for clinical purposes. This laboratory is certified under the Clinical Laboratory Improvement Amendments of 1988 (CLIA-88) as qualified to perform high complexity clinical laboratory testing. Clinician collected PreservCyt ThinPrep vaginal specimen are an approved additional specimen source, based on an internal laboratory validation. Limitations : A negative result does NOT preclude the presence of HPV infection because results depend on adequate specimen collection, absence of inhibitors and sufficient DNA to be detected. Correlation with cytologic findings is recommended as applicable. Questions about process or methodology contact Molecular Department at or [phone]. [id number]-[id number] [facility] H AP Specimens HPV Genotype 18 Negative 18 (04/17/24 11:14 AM) Negative 04/17 N Interpretiv e Data: HPV GENOTYPE 18 Negative: NEGATIVE for HPV genotype 18 DNA. HPV GENOTYPE 18 Positive: POSITIVE for HPV genotype 18 DNA. The leonor HPV Test is a qualitative in vitro test for the detection Human Papillomavi pritesh in clinician-c ollected cervical and vaginal specimens. It detects the following high-risk HPV types 16, 18, 31, 33, 35, 39, 45, 51, 52, 56, 58, 66, and 68. Note: The modificatio n to specimen source of vaginal was developed and its performance characteris tics determined by [facility], Molecular Diagnostics Lab. Vaginal source has not been cleared or approved by the U. S. Food and Drug Administrat ion. This modified vaginal specimen HPV test is for clinical purposes. This laboratory is certified under the Clinical Laboratory Improvement Amendments of 1988 (CLIA-88) as qualified to perform high complexity clinical laboratory testing. Clinician collected PreservCyt ThinPrep vaginal specimen are an approved additional specimen source, based on an internal laboratory validation. Limitations : A negative result does NOT preclude the presence of HPV infection because results depend on adequate specimen collection, absence of inhibitors and sufficient DNA to be detected. Correlation with cytologic findings is recommended as applicable. Questions about process or methodology contact Molecular Department at or [phone]. [id number]-[id number] [facility] H AP Specimens AP Cyto JAR CAPPER Patient: Jeana Matta Specimen #: [id number] Patholog ist: Accessio n: 4 [facility] DEPARTME NT OF PATHOLOG Y [address] [place] [address] [address] [phone] [place] [phone] Cytology Gynecolo gic Report Patient: Jeana Matta Specimen #: [id number] [facility] ID:: [id number] [address] [place] [address] r #: [id number] Taken: 4 11:14 /Age: 8 9 (Age: 64) Received : 4 12:01 Physicia n(s:): MAHNAZ MARCUS Reported : 4 Specimen (s) Received Taken Rec Thin Prep - Cervical w/o reflex HPV 4 11:14 4 12:01 Final Diagnosi s Thin Prep - Cervical w/o reflex HPV: Satisfac tory for evaluati on; endocerv ical componen t present. Negative for intraepi thelial lesion or malignan cy. This Pap test was evaluate d with the assistan ce of the Thin Prep Imaging System. Elect ronicall y Signed by Olivia Webb Clinical Diagnosi s and History LEEP with ALICIA 2-3; can repeat 5yrs if nl Prior History Signed Out Specimen # Interpre tation 03/20/20 19 [id number] Negative for Intraepi thlial Lesion or Malignan cy 03/14/20 14 [id number] NEGATIVE 03/05/20 11 [id number] NEGATIVE 01/23/20 10 [id number] NEGATIVE 11/13/19 09 [id number] NEGATIVE CPT Codes: A; 30140 The Pap test is a screenin g test for precurso rs of squamous cell carcinom a with an irreduci ble false negative rate of around 5%. It is not designed to detect glandula r lesions. A negative test does not ensure that no disease is present. 04/17 0055C-3 [facility] [place] Chemistry Sodium 138 mmol/L 136 - 145 10/11 N 0055A-3 75th [facility] [place] Chemistry Potassium Lvl TNP 3.5 - 5.1 10/11 Result Comment: Due to 2+ hemolysis Potassium level can not be performed. 0055A-3 [facility]th [facility] [place] Chemistry Glucose Lvl 74 mg/dL 74 - 99 10/11 N 0055A-3 75th [facility] [place] Chemistry CO2 24 mmol/L 22 - 29 10/11 N 0055A-3 [facility] [place] Chemistry Chloride 106 mmol/L 98 - 107 10/11 N 0055A-3 [facility] [place] Chemistry Calcium 9.6 mg/dL 8.4 - 10.2 10/11 N 0055A-3 75th [facility] [place] Chemistry BUN/Creat Ratio 19 mg/dL 12 - 20 10/11 N 0055A-3 75th [facility] [place] Chemistry Creatinine Level 0.90 mg/dL 0.57 - 1.11 10/11 N 0055A-3 [facility] [place] Chemistry AGAP 8.00 0.00 - 15.00 10/11 N 0055A-3 [facility] [place] Chemistry BUN 17 mg/dL 7 - 20 10/11 N 0055A-3 [facility] [place] Chemistry eGFR CKD EPI 71 mL/min/1 .73_m2 10/11 Interpretiv e Data: Estimated Glomerular Filtration Rate (eGFR) calculated using the 2020 Chronic Kidney Disease-Epi demiology (CKD-EPI) Collaborati on creatinine equation; units of measure are mL/min/1.73 m2. Results are only valid for adults (>=18 years) whose serum creatinine is in steady state. eGFR calculation s are not valid for patients with acute kidney injury and for patients on dialysis. Creatinine- based estimates of kidney function may also be inaccurate in patients with reduced creatinine generation due to decreased muscle mass (e.g., malnutritio n, severe hypoalbumin emia, sarcopenia, chronic neuromuscul ar disease, amputations , severe heart failure or liver disease) and in patients with increased creatinine generation due to increased muscle mass (e.g., muscle builders, anabolic steroids) or increased dietary intake. CKD is diagnosed based on abnormaliti es of kidney structure or function, present for >3 months, with implication s for health and disease. CKD is classified and staged based on cause, eGFR and albuminuria (quantified as urine albumin to creatinine ratio). An eGFR >60 mL/min/1.73 m2 in the absence of increased urine albumin excretion or structural abnormaliti es does not CKD. eGFR provides only an estimate of measured GFR within +/- 30% for most patients. As mentioned, nutritional status and muscle mass, among many factors, may lead to inaccuracy in the estimate. Consider ordering the creatinine- cystatin C panel if better accuracy is needed for clinical decision-jessica olson. eGFR (mL/min/1.7 3 m2) CKD stage Interpretat ion Normal 60-89 Mild decrease 45-59 Mild to moderate decrease 30-44 Moderate to severe decrease 15-29 Severe decrease <15 Kidney failure 5A-3 75th [facility] Chemistry Vitamin D 25 OH 73.2 ng/mL 30.0 - 100.0 04/29 N Interpretiv e Data: Classificat ion of Vitamin D Status: Deficient: <20 ng/mL Insufficien t: 20-29 ng/mL Sufficient: 30-100 ng/mL Possible Toxicity: >100 ng/mL This assay is for the quantitativ e determinati on of total 25 (OH) vitamin D. It is intended as an aid in the determinati on of vitamin D sufficiency . Results should always be interpreted in conjunction with the patient's medical history, clinical presentatio n, and other findings. Testing performed by Carlos wayne. 5600A-U [facility] Chemistry TSH 1.850 mIU/L 0.270 - 4.200 04/29 N Interpretiv e Data: Recommend: TPO/Thyrope roxidase Antibody when TSH result is > 4.2 uIU/mL 5600A-U [facility] Chemistry Cholesterol Total 204 mg/dL 04/29 H Interpretiv e Data: According to the [place] [employer] : AGES 0-19: Desirable: < 170 mg/dL Borderline High: 170-199 mg/dL High Blood Cholesterol : >/= 200 mg/dL ADULTS: Desirable < 200 mg/dL Borderline High: 200-239 mg/dL High Blood Cholesterol : >/= 240 mg/dL [facility] Chemistry Chol/HDL 3 mg/dL 04/[address] [place] [address] [place] Chemistry LDL 135 mg/dL 100 - 130 04/29 H Interpretiv e Data: AGES 0-19: Desirable: < 110 mg/dL Borderline High: 110-129 mg/dL High: >/= 130 mg/dL ADULTS: Desirable: <100 mg/dL Near/above optimal: 100-130 mg/dL Borderline High: 131-159 mg/dL High: 160-189 mg/dL Very High: 190 mg/dL [facility] Chemistry HDL Cholesterol 65 mg/dL 40 - 59 04/29 H Interpretiv e Data: HDL (HIGH DENSITY LIPOPROTEIN ): ADULTS: Low: < 40 mg/dL High: >/= 60 mg/dL AGES 0 -19: Low: < 40 mg/dL Borderline Low: 40 - 45 mg/dL Acceptable: > 45 mg/dL [address] [place] [address] [place] Chemistry Triglycerid es 44 mg/dL 7 - 149 04/29 N Interpretiv e Data: AGES 0-9: Desirable: < 75 mg/dL Borderline High: 75-99 mg/dL High: >/= 100 mg/dL AGES 10-19: Desirable: < 90 mg/dL Borderline High: 90-129 mg/dL High: >/= 130 mg/dL ADULTS: Desirable: < 150 mg/dL Borderline High: 150-199 mg/dL High: >/= 240 mg/dL Very High: >/= 500 mg/dL 5A-3 [facility] [place] Chemistry LDL/HDL 2 04/295A-3 [facility] [place] Vital Signs Combined list of inpatient and outpatient Vital Signs from Department of Defense and Veterans Affairs, ranging from 12 months to all on record, depending upon the facility. Vital Sign Value Date Comments Source Temperature Oral 36.4 Darshana 04/17/2024 15:08:00 0055C-[facility] Systolic Blood Pressure 99 mm[Hg] 04/17/2024 15:08:00 0055C-[facility] Diastolic Blood Pressure 66 mm[Hg] 04/17/2024 15:08:00 0055C-[facility] Mean Arterial Pressure, Calc 77 mm[Hg] 04/17/2024 15:08:00 0055C-[facility] Respiratory Rate 16 br/min 04/17/2024 15:08:00 0055C-[facility] Peripheral Pulse Rate 70 bpm 04/17/2024 15:08:00 0055C-[facility] Peripheral Pulse Rate 64 bpm 06/15/2023 14:57:00 2419Y-Wq-R-[facility] Mean Arterial Pressure, Calc 90 mm[Hg] 06/15/2023 14:57:00 4172U-Db-A-3 [facility] Systolic Blood Pressure 123 mm[Hg] 06/15/2023 14:57:00 4294Z-Xt-Q-[facility] Diastolic Blood Pressure 73 mm[Hg] 06/15/2023 14:57:00 9070Q-Lq-B-[facility] Blood Pressure Manual Automatic 06/15/2023 14:57:00 6946S-Cw-G-[facility] BP Site Right arm 06/15/2023 14:57:00 6130C -Af-C-[facility] Respiratory Rate 14 br/min 06/15/2023 14:57:00 6209X-Wm-L-[facility] Blood Pressure Manual Automatic 05/24/2024 13:14:00 5836Y-Jo-R-[facility] BP Site Left arm 05/24/2024 13:14:00 6130C -Af-C-[facility] Mean Arterial Pressure, Calc 89 mm[Hg] 05/24/2024 13:14:00 8311N-Ws-W-3 [facility] Peripheral Pulse Rate 69 bpm 05/24/2024 13:14:00 6760V-Yv-V-[facility] Respiratory Rate 14 br/min 05/24/2024 13:14:00 5385K-Gk-A-[facility] Systolic Blood Pressure 115 mm[Hg] 05/24/2024 13:14:00 3568R-Sc-B-[facility] Diastolic Blood Pressure 76 mm[Hg] 05/24/2024 13:14:00 4410I-Pn-Z-[facility] Peripheral Pulse Rate 66 bpm 04/13/2023 15:13:00 0055C-[facility] BP Site Left arm 04/13/2023 15:13:00 0055C -[facility] Temperature Oral 36.3 Darshana 04/13/2023 15:13:00 0055C-[facility] Respiratory Rate 16 br/min 04/13/2023 15:13:00 0055C-[facility] Blood Pressure Manual Automatic 04/13/2023 15:13:00 0055C-[facility] Mean Arterial Pressure, Calc 80 mm[Hg] 04/13/2023 15:13:00 0055C-[facility] Systolic Blood Pressure 109 mm[Hg] 04/13/2023 15:13:00 0055C-[facility] Diastolic Blood Pressure 66 mm[Hg] 04/13/2023 15:13:00 0055C-[facility] Respiratory Rate 16 br/min 09/27/2024 16:13:00 5223O-Vf-R-[facility] Temperature Oral 36.8 Darshana 09/27/2024 16:13:00 5492P-Yz-Z-[facility] Systolic Blood Pressure 116 1 09/27/2024 16:13:00 7855I-Gr-H-[facility] Diastolic Blood Pressure 76 mm[Hg] 09/27/2024 16:13:00 4774Y-Xa-L-375[facility] Mean Arterial Pressure, Calc 89 mm[Hg] 09/27/2024 16:13:00 9379C-Nx-T-3 [facility]Th [facility] Peripheral Pulse Rate 75 bpm 09/27/2024 16:13:00 3161N-Fz-N-[facility] Systolic Blood Pressure 102 mm[Hg] 10/03/2023 16:21:00 1687Q-Ar-U-[facility] Diastolic Blood Pressure 60 mm[Hg] 10/03/2023 16:21:00 1476E-Wa-D-[facility] Mean Arterial Pressure, Calc 74 mm[Hg] 10/03/2023 16:21:00 3340T-Ra-J-3 [facility] Peripheral Pulse Rate 65 bpm 10/03/2023 16:21:00 2333T-Gn-K-[facility] Respiratory Rate 16 br/min 10/03/2023 16:21:00 2512U-Ys-I-[facility] BP Site Right arm 10/03/2023 16:21:00 6130C -Af-C-[facility] Blood Pressure Manual Automatic 10/03/2023 16:21:00 2911Q-Ry-E-[facility] Encounters Combined list of: 1) Encounters from Department of Veterans Affairs facilities going backup to the last 18 months, not all VA inpatient encounters are included; 2) Encounters from the Department of Defense facilities going backup to 280 months. Location Location Details Encounter Type Encounter Number Reason For Visit Attending Provider ADM Date DC Date Status Disposition Source 6130C-Af- C-[facility] Between Visit [id number] 09/09 Discharge Disposition: Home or Self Care 6130C-A f-C-375 [facility] [place] 6130C-Af- C-[facility] Clinic [id number] Encount er for general adult medical examina tion without abnorma l finding s NATHANSEIG RIST 09/27 Discharge Disposition: Home or Self Care 6130C-A f-C-375 Th [facility] [place] 5C-375 [facility] [id number] VARGHESE ROBIN 10/02 Discharge Disposition: Home or Self Care -3 75th [facility] [place] 5C-375 th [facility] [id number] Encount er for immuniz aravind ROBIN 10/23 Discharge Disposition: Home or Self Care -3 75th [facility] 5C375 [facility] [id number] Encount er for immuniz aravind ROBIN 11/06 Discharge Disposition: Home or Self Care - [facility] [place] Procedures Combined list of: 1) Procedures from Department of Veterans Affairs facilities going back up to thelast 18 months, not all VA non-surgical procedures are included; 2) All procedures from the Department of Defense facilities. Procedure Procedure Type Code Date Perfomer Comments Sourc e excision [facility] 03/22/2023 005-37 [facility] septum [facility] 01/29[facility]2022 005[facility] 12/20/2021 005-37 [facility] 08/22/2020 00 C-[facility] right br bx 08/22/2020 B9 5C[facility]375 [facility] My[facility]ctomy, excision of fibroid tumor(s) of uterus, 1 to 4 intramural myoma(s) with total weight of 250 g or le and/or removal of surface myomas; vaginal approach Myomectomy, excision of fibroid tumor(s) of uterus, 1 to 4 intramural myoma(s) with total weight of 250 grams or less and/or removal of surface myomas; vaginal approach [id number] 08/22/2001 0055C-375th [facility] LEEP 08/22/1992 ALICIA 2-3 0055C-375 [facility] Social History Combined list of available smoking, tobacco, and other social history from Department of Defense and Veterans Affairs facilities. Social History Type Response Date Comment Sour e Sex Representation Female (finding) 10/14/2022 Unknown Organization Tobacco Cigarette use: Never-cigarette user. Other Tobacco use: Former-other tobacco user (not cigarettes). Ambulatory Pharmacy Sexual Orientation Ambula tory Pharmacy Gender identity Ambulator y Pharmacy Assessment and Plan Combined list of future care activities from Department of Defense and Veterans Affairs facilities (e.g., assessment and plan notes, appointments, orders, and referrals). Additional future care activities may be listed in the Plan of Care section. Result Assessment and Plan Date Source Assessment and Plan Extracted from:Title : Imm Typhoid Travel Author: ARCELIA FRANCO Date: 11/06/24 1. V accination given hepatitis A adult vaccine: 1440 unit(s) (10/23/24 09:54:00) typhoid vaccine, parenteral: 0.5 mL (11/06/24 13:11:00) D iagnosis: 1 . V accination given Comment: Ordered: Unlisted E[employer]M Service [id number]; 11/06/2024 13:03:00 CDT, Vaccination given b y VARGHESE GRIFFITH MD Other status: typhoid vaccine, inactivated; 0.5 mL, IntraMuscular, Injection, Vaccine, First Dose: 11/06/2024 13:02:00 CDT, 11/06/2024 13:02:00 CDT ( Completed) by VARGHESE GRIFFITH MD ? I madm Prq Id Subq/Im Njxs 1 Vaccine [id number]; 11/06/2024 13:03:00 CDT, Vaccination given (Completed) by VARGHESE GRIFFITH MD End of Orders Extracted from:Title: Imms Note Author: ARCELIA FRANCO Date: 10/23/24 SCREENING CHECKLIST FOR CONTRAINDICATIONS TO VACCINES FOR A DULTS Patient here to receive vaccines recommended p er ACIP/CDC guideline standing orders . Patient read the following screening information and truthfully answered all of the required questions. Questions answered YES required further explanation, but are not necessarily a contraindication to vaccination. There were no contraindications to vaccines provided in clinic today. If the patient is receiving the RSV vaccine, the CDC recommends adults 60 years and older may receive a single dose of RSV vaccine, based on discussions between the patient and health care provider. Routine Immunization Screening Questionnaire: Adult (using DD Form 3111, October 2019 Model) 1. Are you sick today? No 2. Do you have allergies to medication food, a vaccine component, or latex? Yes, see allergy section 3. Have you ever had a serious reaction after receiving a vaccination? No 4. Have you had a seizure or brain or other nervous system problem? No 5. Have you had a health problem involving heart, lung (e.g. asthma), kidney, or metabolic disease (e.g., diabetes), anemia, or other blood disorder? 6. Do you, or a close family member, have cancer, leukemia, HIV/AIDS, or any other immune system problems? No 7. In the past 3 months, have you taken medications that weaken your immune system, such as prednisone or other steroids; anticancer drugs; biologic drugs for autoimmune diseases such as rheumatoid arthritis, Crohn's disease, or psoriasis or had radiation treatments? No 8. During the past year, have you received a transfusion of blood or blood products, or been given immune (gamma) globulin, or an anti-viral drug? NoNo 10. Have you ever passed out (vasovagal syncope) during or after a previous immunization or blood draw? No 11. Have you received any vaccinations in the past 4 weeks? No 12. For women, are you or is there a chance that you could become in the next month? N/A hepatitis A adult vaccine: 1440 unit(s) (10/23/24 09:54:00) Diagnosis: 1. Vaccination given Comment: Other status: hepatitis A adult vaccine 1440 units/1 mL; 1,440 unit(s) =, IntraMuscular, Suspension-Injection, Vaccine, First Dose: 10/23/2024 09:53:00 SWIMMING POOL ATTENDANT, 10/23/2024 09:53:00 SWIMMING POOL ATTENDANT (Completed) by VARGHESE GRIFFITH MD Office Visit Level 1 Est 45216; 10/23/2024 09:53:00 SWIMMING POOL ATTENDANT, Vaccination given (Completed) by VARGHESE GRIFFITH MD Imadm Prq Id Subq/Im Njxs 1 Vaccine 26528; 10/23/2024 09:53:00 SWIMMING POOL ATTENDANT, Vaccination given (Completed) by VARGHESE GRIFFITH MD End of Orders More details of the vaccination administered can be found in the patient s Immunization History under the Immunizations tab. Extracted from:Title: Imms Note Author: HANCOCKCARTER, EMT Date: 10/02/24 SCREENING CHECKLIST FOR CONTRAINDICATIONS TO VACCINES FOR A DULTS Patient here to receive vaccines recommended p er ACIP/CDC guideline standing orders . Patient read the following screening information and truthfully answered all of the required questions. Questions answered YES required further explanation, but are not necessarily a contraindication to vaccination. There were no contraindications to vaccines provided in clinic today. If the patient is receiving the RSV vaccine, the CDC recommends adults 60 years and older may receive a single dose of RSV vaccine, based on discussions between the patient and health care provider. 1. Are you sick today? N o 2 . Do you have allergies to medications, food, a vaccine ingredient, or latex? Y es Latex 3 . Have you ever had a serious reaction after receiving a vaccine? N o 4 . Do you have a long-term health problem with heart, lung, kidney, or metabolic disease (e.g., diabetes), asthma, a blood clotting disorder, no spleen, complement component deficiency, a cochlear implant, or a spinal fluid leak? Are you on long-term aspirin therapy? N o 5 . Do you have cancer, leukemia, HIV/AIDS, or any other immune system problem? N o 6 . D o you have a parent, brother, or sister with an immune system problem? N o 7 . I n the past 3 months, have you taken medications that affect your immune system, such as prednisone, other steroids, or anticancer drugs; drugs for the treatment of rheumatoid arthritis, Crohn s disease, or psoriasis; or have you had radiation treatments? N o 8 . Have you had a seizure or a brain or other nervous system problem? N o 9 . During the past year, have you received a transfusion of blood or blood products or been given immune (gamma) globulin or an antiviral drug? N o 10. For women: Are you or is there a chance you could become during the next month? N o 1 1. Have you received any vaccinations in the past 4 weeks? N o ? 1 2. VIS was provided before r eceiving vaccines. Y es It was recommended that the patient remain in the clinic for 15 minutes for monitoring of potential unexpected side effects. The patient left WITHOUT apparent unexpected effects from the vaccine(s). If PPD was placed, the pt was informed on proper care of IPPD site and need for 48-72hr follow-up. Patient given proof of vaccination via p rinted record, patient can also access records via patient portal. P atient to follow-up with PCM/prescribing provider for further questions. Diagnosis: Encounter for immunization Comment: Ordered: Prevnar 20; 0.5 mL, IntraMuscular, Suspension-Injection, Vaccine, First Dose: 10/02/2024 10:43:00 SWIMMING POOL ATTENDANT, 10/02/2024 10:43:00 SWIMMING POOL ATTENDANT by VARGHESE GRIFFITH MD Other status: Imadm Prq Id Subq/Im Njxs 1 Vaccine [id number]; 10/02/2024 10:43:00 SWIMMING POOL ATTENDANT, Encounter for immunization (Completed) by VARGHESE GRIFFITH MD Diagnosis: Vaccination given Comment: Ordered: Prevnar 20; 0.5 mL, IntraMuscular, Suspension-Injection, Vaccine, First Dose: 10/02/2024 10:43:00 SWIMMING POOL ATTENDANT, 10/02/2024 10:43:00 SWIMMING POOL ATTENDANT by VARGHESE GRIFFITH MD End of Orders Extracted from:Title: [facility] [place] - Annual Wellness Visit Author: EMILEE LANE DO Date: 09/27/24 1. W ell female adult P reventative Medicine / HCM visit with no emergent concerns. ----- VACCINES: - Advised annual flu vaccine - Advised COVID-19 vaccine - Advised pneumococcal vaccine (age 65 or 19-64 if have r isk factors: smoking, DM, immunocompromised) ----- - Cervical Cancer Screening: N /A - 04/17/2024 - negative [X] Given age >65, or h/o hysterectomy, Pap not offered - Breast C ancer Screening: D UE - 10/11/2023 - BIRADS 2 - already scheduled [X] Age 50-75; initiate screening and repeat q1-2 yrs per USPSTF - L mariella Cancer Screening: N /A [_] Age 50-80 a nd 20 pack-yr smoking hx p er USPSTF - C olon Cancer Screening: D UE - Jun 2020 - Hemorrhoids - reportedly 5 year r epeat recommendation [X] Age > 4 5 per USPSTF ----- BONE DENSITY: N /A - patient sets this up through obgyn and states she had one recently. [X] Age > 6 5 ----- : N /A [_] If plans for , pt knows to take folic acid (400-800 mcg/day), avoid tob/EtOH/illicit drugs ----- METABOLIC: - L ipid screening: U TD [_] D C screening at age 65 if have had multiple screenings with acceptable measures - D M screening: U TD [_] ADA recommendation for annual screening in adults with BMI > 25 with one or more?risk factor for T2DM ( HTN, HLD, h/o CVD, h/o PCOS, FMHx) o r age 35-70 with BMI >25 ----- DIET: -Low fat: Discussed that low fat diets are considered one of the best strategies to lose or maintain weight. -Low cholesterol: Discussed that low cholesterol diets and the relationship between LDL levels and cholesterol consumption. Current 2020 Dietary guidelines for Americans no longer recommend limiting dietary cholesterol consumption to 300mg or less. Counseled patient to maintain an overall healthy eating pattern and consume as little dietary cholesterol as possible. -Vegetarian: Discussed that long-term effects of vegetarian diets on health outcomes are difficult to assess due to the wide variance among dietary restrictions. However, vegetarian diets are suggestive of lower incidence of obesity, CHD, HTN, and T2DM. -DASH: Discussed that the DASH diet recommendation according to the 2020 Dietary guidelines for Americans is to reduce sodium intake to less than 2,300mg daily, and consume 4-5 servings of fruit, 2-3 servings of vegetables, 2-3 servings of low-fat dairy, and <25% dietary intake from fat daily. Overall improvement in blood pressure, as well as, possible decreased risk of colorectal cancer, CVD, and gout (in Men) was seen with individuals following the DASH diet. -Mediterranean: Discussed that the Mediterranean diet consists of a diet high in fruits, vegetables, whole grains, etc. Mediterranean diet has been associated with decreased incidence of stroke and CVD. ----- SUBSTANCE USE: - T obacco use: D enies - Alcohol use: Denies - Illicit drug use: Denies ----- OTHER: - Discussed wearing safety belts, helmets (if motorcycle rider), sunscreen, smoke detectors in home ----- FOLLOW UP: - Annually This case has been d jude w ith a ttending physician, Dr. Archie kelly. //SIGNED// Capt Emilee Lane DO Ortho Assistant Physician, PGY-1 [facility], [facility] Jerrod DOEB Extracted from:Title: [facility] [place] - Lab/Imaging Results Author: YEVGENIY LOU, Date: 05/24/24 1. P ain in left foot Patient called to discuss l ab and imaging results. Uric acid negative, indicating v michael low likelihood of gout. 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 No malignant appearing lesions w ere seen. -Patient encouraged to k eep her podiatry appointment to discuss p ossible surgical intervention for her bunion/bunionette -Return precautions discussed -RTC as needed Yevgeniy Lou DO Ortho Assistant, PGY-3 [facility] RODRIGUEZ Addendum by NYDIA DASH DO on May 28, 2024 13:23:20 CDT I certify that I was present for case discussion in the Family Medicine preceptor room at the time of this encounter. I have reviewed the note and agree with the findings, assessment, and plan except as I have documented below. Follow up as listed. All labs/imaging/consults to be followed by the ordering provider. Maj Santa, [facility], Staff Physician Extracted from:Title: [facility] [place] - Foot Pain Author: YEVGENIY LOU, Date: 05/24/24 1. F oot joint pain Patient coming in with f oot pain to t he first, second, and fifth m etatarsals with?solid protuberances felt a t each area of tenderness. Differential includes bunion, bone spur, soft tissue density i n the second and fifth metatarsal. The area a t the first metatarsal, however, c ould be gout. Patient states t hat there is family history of gout, but she h as no personal history of gout. -Uric acid level to evaluate for gout -X-ray of the left foot to evaluate for bony pathology -Encouraged conservative care including N SAIDs, heat, ice, u se of shoes with a wide toe box -Referral placed to podiatry for surgical consultation -Return precautions discussed -RTC as needed Ordered: Uric Acid Level XR Foot Weight Bearing 3+ Left Referral Request 2.0 - DoD Yevgeniy Lou DO Ortho Assistant, PGY-3 [facility] Addendum by XOCHITL MELO MD on May 24, 2024 11:16:09 CDT I certify that I was present for case discussion in the Family Medicine preceptor room at the time of this encounter. I have reviewed the note and agree with the findings, assessment, and plan except as I have documented below. Follow up as listed. All labs/imaging/consults to be followed by the ordering provider. Maj Trevor () Family Medicine Physician [facility] Jerrod RODRIGUEZ, [place] Extracted from:Title: JAR CAPPER/WWE, pap; osteopenia Author: MAHNAZ MARCUS NP Date: 04/17/24 1. E ncounter for gynecological examination (general) (routine) with abnormal findings Over 50% of m inute visit spent face to face with patient on education, reviewing history, and developing plan of care. Continue monthly BSE and yearly well woman exams. Return to clinic in 1 year. Exercise: 30 minutes of moderate exercise 5 days a week including cardio and strength training is recommended for a healthy lifestyle. T his should be in addition to your normal daily work/routine. If you are trying to lose weight more exercise along with a healthy diet is recommended. Supplements/Vitamins: If you are not following, or able to follow a well-balanced diet indicated below due to personal or medical reasons, it is recommended you take a m ultivitamin. This is especially important if you are trying to get as w omen need additional folic acid before and during (400-1000 micrograms per day). Daily calcium intake should be around 1200 mg per day w hich is 120% of the recommended daily allowance if looking at food labels.? W e recommend V itamin D3 2,000-3,000 international units a day i f you have not already been identified with an insufficiency or deficiency. Nutrition: A healthy diet with protein, vegetables, fruits, grains, and dairy is advised. More information including example serving sizes can be found at h ttps://www.choosemyplate.gov/.&#1 60; T hese amounts are appropriate for individuals who get less than 30 minutes per day of moderate physical activity, beyond normal daily activities. Those who are more physically active may be able to consume more while staying within calorie needs. 2. E ncounter for screening for malignant neoplasm of cervix can consider no more screening vs repeat 5yrs Ordered: AP Cytology JAR CAPPER HPV High Risk (16/18/Other) 3. H ormone replacement therapy risks, side effects HT reviewed; has tried 2x/wk and increases flushing; OK to con't 3x/wk Ordered: conjugated estrogens-medroxyprogesterone(Pre mpro 0.3 mg-1.5 mg oral tablet), 1 tab(s), Oral, every other day, # 56 tab(s), 4 total refill(s), Maintenance, 1 tab(s) Oral every other day, Pharmacy: [facility] [Federal Rx: #56 last filled 04/17/24] 4. A ge related osteopenia stressed ca, vit d, wt bearing exercise; will stop boniva and repeat dexa and vit d next yr Ordered: calcium carbonate(calcium (as carbonate) 500 mg oral tablet), See Instructions, take 1 tab bid, # 180 tab(s), 3 total refill(s), Maintenance, take 1 tab bid, Pharmacy: [facility] [Federal Rx: #180 last filled 04/17/24] 5. O ther specified abnormal findings of blood chemistry low fat/low chol diet, no more than 25% total calories from fat, Ordered: Hemoglobin A1c Lipid Panel Pt questions addressed and written discharge instructions were provided to the patient. Mahnaz Marcus [facility] ESTELLE [facility] [place] Extracted from:Title: FM 63 yo well Author: NITESH HENRY MD Date: 10/03/23 1. W malcom adult Preventative Medicine / HCM visit with no emergent concerns. ----- VACCINES: - UTD ----- - Cervical Cancer Screening: U TD Next due December 2024 - Breast C ancer Screening: D UE - L mariella Cancer Screening: N/A - C olon Cancer Screening: UTD Due June 2025 ----- BONE DENSITY: U TD ----- : N /A ----- METABOLIC: - L ipid screening: U TD - D M screening: UTD ----- SUBSTANCE USE: - T obacco use: D enies - Alcohol use: Admits R rita - Illicit drug use: Denies ----- OTHER: - Discussed wearing safety belts, helmets (if motorcycle rider), sunscreen, smoke detectors in home ----- FOLLOW UP: - Annually Ordered: Basic Metabolic Panel 2. M otion sickness In preparation for a cruise, will prescribe scopolamine patches. Ordered: scopolamine(scopolamine 1 mg/72 hr transdermal film, extended release), 1 patch(es), TransDermal, every 72 hr, # 10 patch(es), 0 total refill(s), Maintenance, 1 patch(es) TransDermal every 72 hr, Pharmacy: [facility] [Not filled] 3. N jessica pain Acute. Negative spurling maneuver, unlikely to be cervical radiculopathy. Given physical exam, most favor cervical paraspinal muscle contractures. Provided home pt exercises. Cspine XR to rule out osteoarthritis. Ordered: XR Spine Cervical 2 or 3 Views 4. B isatu cell carcinoma of skin Hx of x2, sending back to dermatology for annual skin check. Ordered: Referral Request 2.0 5. S mall fiber neuropathy Chronic, established with neurology. Continue gabapentin. Encouraged control of bp and dm to help prevent worsening of symptoms. BMP to ensure kidney function adequate for dosing of gabapentin. Ordered: Basic Metabolic Panel Referral Request 2.0 Nitesh Henry MD Ortho Assistant, PGY-3 [facility] Addendum by JESSICA DUMONT MD on October 04, 2023 08:16:11 SWIMMING POOL ATTENDANT I certify that I was present for case discussion in the Family Medicine preceptor room at the time of this encounter. I have reviewed the note and agree with the findings, assessment, and plan except as I have documented below. Follow up as listed. All labs/imaging/consults to be followed by the ordering provider. Jessica Dumont MD Extracted from:Title: Comirnaty Encounter closure Author: ARCELIA FRANCO Date: 07/20/23 Encounter has Screening Questions previously completed. Refer to screening questions for additional information of vaccination given and clearance. More information is also available in the Immunization Tab for patient's history of vaccinations. Closing Encounter for administrative completion. CPT Code 06104 w/0004A Extracted from:Title: Office Clinic Note - OMT Author: NYDIA DASH DO Date: 06/15/23 1. R ight hip pain Stretching Demonstrated: Yes Pain prior to treatment: 6/10 Pain after treatment: 0/10 Plan: 1) P t to drink plenty of water tonight 2) M ay take Tylenol as needed for pain next 48hrs 3) A pply ice or heat for additional relief 4) F ollow up: as needed 2-4 weeks C hronic medical issues and preventative health measures not addressed due to the specialty nature of this visit. Recommended annual HCM visits and regular follow up for chronic medical issues. 2. L ow back pain see above plan Capt Nydia Dash DO Family Medicine Faculty Physician [address] [place] [address], [facility] Jerrod RODRIGUEZ Extracted from:Title: WWE Author: MAHNAZ MARCUS NP Date: 04/13/23 1. E ncounter for gynecological examination (general) (routine) with abnormal findings Over 50% of m inute visit spent face to face with patient on education, reviewing history, and developing plan of care. Continue monthly BSE and yearly well woman exams. Return to clinic in 1 year. Exercise: 30 minutes of moderate exercise 5 days a week including cardio and strength training is recommended for a healthy lifestyle. T his should be in addition to your normal daily work/routine. If you are trying to lose weight more exercise along with a healthy diet is recommended. Supplements/Vitamins: If you are not following, or able to follow a well-balanced diet indicated below due to personal or medical reasons, it is recommended you take a m ultivitamin. This is especially important if you are trying to get as w omen need additional folic acid before and during (400-1000 micrograms per day). Daily calcium intake should be around 1200 mg per day w hich is 120% of the recommended daily allowance if looking at food labels.? W e recommend V itamin D3 2,000-3,000 international units a day i f you have not already been identified with an insufficiency or deficiency. Nutrition: A healthy diet with protein, vegetables, fruits, grains, and dairy is advised. More information including example serving sizes can be found at h ttps://www.choosemyplate.gov/.&#1 60; T hese amounts are appropriate for individuals who get less than 30 minutes per day of moderate physical activity, beyond normal daily activities. Those who are more physically active may be able to consume more while staying within calorie needs. Ordered: multivitamin with minerals(Centrum Silver oral tablet), 1 tab(s), Oral, Daily, # 90 tab(s), 3 total refill(s), Maintenance, 1 tab(s) Oral Daily, Pharmacy: [facility] [Not filled] Lipid Panel TSH w/ Reflex FT4 and Total T3 2. O steoporosis Ordered: ibandronate(Boniva 150 mg oral tablet), 1 tab(s), Oral, every month, # 3 tab(s), 3 total refill(s), Maintenance, 1 tab(s) Oral every month, Pharmacy: [facility] [Not filled] calcium carbonate(calcium (as carbonate) 600 mg oral tablet), 1 tab(s), Oral, BID, # 180 tab(s), 3 total refill(s), Maintenance, 1 tab(s) Oral BID, Pharmacy: [facility] [Not filled] Vitamin D 25 Hydroxy Level 3. H ormone replacement therapy risks, side effects HT reviewed; discussed risks, lowest dose to manage symptoms; OK to increase to 3-4days /wk if that controls symptoms; Ordered: conjugated estrogens-medroxyprogesterone(Pre mpro 0.3 mg-1.5 mg oral tablet), 1 tab(s), Oral, Daily, # 90 tab(s), 3 total refill(s), Maintenance, 1 tab(s) Oral Daily, Pharmacy: [facility] [Not filled] 4. F lushing discussed gabapentin may help flushing but also discussed increasing # of days taking prempro 5. D ysplasia of cervix pap/HPV due 01/13 with pervious hx ALICIA 2-3 with LEEP 6. O ther specified counseling discussed RSV vaccine and covid booster; f/u with immunizations if desires Mahnaz [facility] 12/06/2024 [id number] Roxy Assessment and Plan Extracted from:Title : Imm Typhoid Travel Author: ARCELIA FRANCO Date: 11/06/24 1. V accination given hepatitis A adult vaccine: 1440 unit(s) (10/23/24 09:54:00) typhoid vaccine, parenteral: 0.5 mL (11/06/24 13:11:00) D iagnosis: 1 . V accination given Comment: Ordered: Unlisted E&M Service [id number]; 11/06/2024 13:03:00 CDT, Vaccination given b y VARGHESE GRIFFITH MD Other status: typhoid vaccine, inactivated; 0.5 mL, IntraMuscular, Injection, Vaccine, First Dose: 11/06/2024 13:02:00 CDT, 11/06/2024 13:02:00 CDT ( Completed) by VARGHESE GRIFFITH MD ? I mad Prq Id Subq/Im Njxs 1 Vaccine [id number]; 11/06/2024 13:03:00 CDT, Vaccination given (Completed) by VARGHESE GRIFFITH MD End of Orders Extracted from:Title: Imms Note Author: ARCELIA FRANCO Date: 10/23/24 SCREENING CHECKLIST FOR CONTRAINDICATIONS TO VACCINES FOR A DULTS Patient here to receive vaccines recommended p er ACIP/CDC guideline standing orders . Patient read the following screening information and truthfully answered all of the required questions. Questions answered YES required further explanation, but are not necessarily a contraindication to vaccination. There were no contraindications to vaccines provided in clinic today. If the patient is receiving the RSV vaccine, the CDC recommends adults 60 years and older may receive a single dose of RSV vaccine, based on discussions between the patient and health care provider. Routine Immunization Screening Questionnaire: Adult (using DD Form 3111, October 2019 Model) 1. Are you sick today? No 2. Do you have allergies to medication food, a vaccine component, or latex? Yes, see allergy section 3. Have you ever had a serious reaction after receiving a vaccination? No 4. Have you had a seizure or brain or other nervous system problem? No 5. Have you had a health problem involving heart, lung (e.g. asthma), kidney, or metabolic disease (e.g., diabetes), anemia, or other blood disorder? 6. Do you, or a close family member, have cancer, leukemia, HIV/AIDS, or any other immune system problems? No 7. In the past 3 months, have you taken medications that weaken your immune system, such as prednisone or other steroids; anticancer drugs; biologic drugs for autoimmune diseases such as rheumatoid arthritis, Crohn's disease, or psoriasis or had radiation treatments? No 8. During the past year, have you received a transfusion of blood or blood products, or been given immune (gamma) globulin, or an anti-viral drug? NoNo 10. Have you ever passed out (vasovagal syncope) during or after a previous immunization or blood draw? No 11. Have you received any vaccinations in the past 4 weeks? No 12. For women, are you or is there a chance that you could become in the next month? N/A hepatitis A adult vaccine: 1440 unit(s) (10/23/24 09:54:00) Diagnosis: 1. Vaccination given Comment: Other status: hepatitis A adult vaccine 1440 units/1 mL; 1,440 unit(s) =, IntraMuscular, Suspension-Injection, Vaccine, First Dose: 10/23/2024 09:53:00 SWIMMING POOL ATTENDANT, 10/23/2024 09:53:00 SWIMMING POOL ATTENDANT (Completed) by VARGHESE GRIFFITH MD Office Visit Level 1 Est 70588; 10/23/2024 09:53:00 SWIMMING POOL ATTENDANT, Vaccination given (Completed) by VARGHESE GRIFFITH MD Imadm Prq Id Subq/Im Njxs 1 Vaccine [id number]; 10/23/2024 09:53:00 SWIMMING POOL ATTENDANT, Vaccination given (Completed) by VARGHESE GRIFFITH MD End of Orders More details of the vaccination administered can be found in the patient s Immunization History under the Immunizations tab. Extracted from:Title: Imms Note Author: CARTER HANCOCK, EMT Date: 10/02/24 SCREENING CHECKLIST FOR CONTRAINDICATIONS TO VACCINES FOR A DULTS Patient here to receive vaccines recommended p er ACIP/CDC guideline standing orders . Patient read the following screening information and truthfully answered all of the required questions. Questions answered YES required further explanation, but are not necessarily a contraindication to vaccination. There were no contraindications to vaccines provided in clinic today. If the patient is receiving the RSV vaccine, the CDC recommends adults 60 years and older may receive a single dose of RSV vaccine, based on discussions between the patient and health care provider. 1. Are you sick today? N o 2 . Do you have allergies to medications, food, a vaccine ingredient, or latex? Y es Latex 3 . Have you ever had a serious reaction after receiving a vaccine? N o 4 . Do you have a long-term health problem with heart, lung, kidney, or metabolic disease (e.g., diabetes), asthma, a blood clotting disorder, no spleen, complement component deficiency, a cochlear implant, or a spinal fluid leak? Are you on long-term aspirin therapy? N o 5 . Do you have cancer, leukemia, HIV/AIDS, or any other immune system problem? N o 6 . D o you have a parent, brother, or sister with an immune system problem? N o 7 . I n the past 3 months, have you taken medications that affect your immune system, such as prednisone, other steroids, or anticancer drugs; drugs for the treatment of rheumatoid arthritis, Crohn s disease, or psoriasis; or have you had radiation treatments? N o 8 . Have you had a seizure or a brain or other nervous system problem? N o 9 . During the past year, have you received a transfusion of blood or blood products or been given immune (gamma) globulin or an antiviral drug? N o 10. For women: Are you or is there a chance you could become during the next month? N o 1 1. Have you received any vaccinations in the past 4 weeks? N o ? 1 2. VIS was provided before r eceiving vaccines. Y es It was recommended that the patient remain in the clinic for 15 minutes for monitoring of potential unexpected side effects. The patient left WITHOUT apparent unexpected effects from the vaccine(s). If PPD was placed, the pt was informed on proper care of IPPD site and need for 48-72hr follow-up. Patient given proof of vaccination via p rinted record, patient can also access records via patient portal. P atient to follow-up with PCM/prescribing provider for further questions. Diagnosis: Encounter for immunization Comment: Ordered: Prevnar 20; 0.5 mL, IntraMuscular, Suspension-Injection, Vaccine, First Dose: 10/02/2024 10:43:00 SWIMMING POOL ATTENDANT, 10/02/2024 10:43:00 SWIMMING POOL ATTENDANT by VARGHESE GRIFFITH MD Other status: Imadm Prq Id Subq/Im Njxs 1 Vaccine [id number]; 10/02/2024 10:43:00 SWIMMING POOL ATTENDANT, Encounter for immunization (Completed) by VARGHESE GRIFFITH MD Diagnosis: Vaccination given Comment: Ordered: Prevnar 20; 0.5 mL, IntraMuscular, Suspension-Injection, Vaccine, First Dose: 10/02/2024 10:43:00 SWIMMING POOL ATTENDANT, 10/02/2024 10:43:00 SWIMMING POOL ATTENDANT by VARGHESE GRIFFITH MD End of Orders Extracted from:Title: [facility] [place] - Annual Wellness Visit Author: EMILEE LANE DO Date: 09/27/24 1. W ell female adult P reventative Medicine / HCM visit with no emergent concerns. ----- VACCINES: - Advised annual flu vaccine - Advised COVID-19 vaccine - Advised pneumococcal vaccine (age 65 or 19-64 if have r isk factors: smoking, DM, immunocompromised) ----- - Cervical Cancer Screening: N /A - 04/17/2024 - negative [X] Given age >65, or h/o hysterectomy, Pap not offered - Breast C ancer Screening: D UE - 10/11/2023 - BIRADS 2 - already scheduled [X] Age 50-75; initiate screening and repeat q1-2 yrs per USPSTF - L mariella Cancer Screening: N /A [_] Age 50-80 a nd 20 pack-yr smoking hx p er USPSTF - C olon Cancer Screening: D UE - Jun 2020 - Hemorrhoids - reportedly 5 year r epeat recommendation [X] Age > 4 5 per USPSTF ----- BONE DENSITY: N /A - patient sets this up through obgyn and states she had one recently. [X] Age > 6 5 ----- : N /A [_] If plans for , pt knows to take folic acid (400-800 mcg/day), avoid tob/EtOH/illicit drugs ----- METABOLIC: - L ipid screening: U TD [_] D C screening at age 65 if have had multiple screenings with acceptable measures - D M screening: U TD [_] ADA recommendation for annual screening in adults with BMI > 25 with one or more?risk factor for T2DM ( HTN, HLD, h/o CVD, h/o PCOS, FMHx) o r age 35-70 with BMI >25 ----- DIET: -Low fat: Discussed that low fat diets are considered one of the best strategies to lose or maintain weight. -Low cholesterol: Discussed that low cholesterol diets and the relationship between LDL levels and cholesterol consumption. Current 2020 Dietary guidelines for Americans no longer recommend limiting dietary cholesterol consumption to 300mg or less. Counseled patient to maintain an overall healthy eating pattern and consume as little dietary cholesterol as possible. -Vegetarian: Discussed that long-term effects of vegetarian diets on health outcomes are difficult to assess due to the wide variance among dietary restrictions. However, vegetarian diets are suggestive of lower incidence of obesity, CHD, HTN, and T2DM. -DASH: Discussed that the DASH diet recommendation according to the 2020 Dietary guidelines for Americans is to reduce sodium intake to less than 2,300mg daily, and consume 4-5 servings of fruit, 2-3 servings of vegetables, 2-3 servings of low-fat dairy, and <25% dietary intake from fat daily. Overall improvement in blood pressure, as well as, possible decreased risk of colorectal cancer, CVD, and gout (in Men) was seen with individuals following the DASH diet. -Mediterranean: Discussed that the Mediterranean diet consists of a diet high in fruits, vegetables, whole grains, etc. Mediterranean diet has been associated with decreased incidence of stroke and CVD. ----- SUBSTANCE USE: - T obacco use: D enies - Alcohol use: Denies - Illicit drug use: Denies ----- OTHER: - Discussed wearing safety belts, helmets (if motorcycle rider), sunscreen, smoke detectors in home ----- FOLLOW UP: - Annually This case has been d iscrubens w ith a ttending physician, Dr. Archie kelly. //SIGNED// Capt Emilee Lane DO Ortho Assistant Physician, PGY-1 [employer], [facility] Jerrod RODRIGUEZ Extracted from:Title: [facility] [place] - Lab/Imaging Results Author: YEVGENIY LOU DO Date: 05/24/24 1. P ain in left foot Patient called to discuss l ab and imaging results. Uric acid negative, indicating v michael low likelihood of gout. 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 No malignant appearing lesions w ere seen. -Patient encouraged to k eep her podiatry appointment to discuss p ossible surgical intervention for her bunion/bunionette -Return precautions discussed -RTC as needed Yevgeniy Lou DO Ortho Assistant, PGY-3 [facility] DOEB Addendum by NYDIA DASH DO on May 28, 2024 13:23:20 CDT I certify that I was present for case discussion in the Family Medicine preceptor room at the time of this encounter. I have reviewed the note and agree with the findings, assessment, and plan except as I have documented below. Follow up as listed. All labs/imaging/consults to be followed by the ordering provider. Maj Santa, [facility], Staff Physician Extracted from:Title: [facility] [place] - Foot Pain Author: YEVGENIY LOU DO Date: 05/24/24 1. F oot joint pain Patient coming in with f oot pain to t he first, second, and fifth m etatarsals with?solid protuberances felt a t each area of tenderness. Differential includes bunion, bone spur, soft tissue density i n the second and fifth metatarsal. The area a t the first metatarsal, however, c ould be gout. Patient states t hat there is family history of gout, but she h as no personal history of gout. -Uric acid level to evaluate for gout -X-ray of the left foot to evaluate for bony pathology -Encouraged conservative care including N SAIDs, heat, ice, u se of shoes with a wide toe box -Referral placed to podiatry for surgical consultation -Return precautions discussed -RTC as needed Ordered: Uric Acid Level XR Foot Weight Bearing 3+ Left Referral Request 2.0 - DoD Yevgeniy Lou DO Ortho Assistant, PGY-3 [facility] DOEB Addendum by XOCHITL MELO MD on May 24, 2024 11:16:09 CDT I certify that I was present for case discussion in the Family Medicine preceptor room at the time of this encounter. I have reviewed the note and agree with the findings, assessment, and plan except as I have documented below. Follow up as listed. All labs/imaging/consults to be followed by the ordering provider. Maj Kushal Murray) Family Medicine Physician [facility] ARNIE Howe Extracted from:Title: JAR CAPPER/WWE, pap; osteopenia Author: MAHNAZ MARCUS NP Date: 04/17/24 1. E ncounter for gynecological examination (general) (routine) with abnormal findings Over 50% of m inute visit spent face to face with patient on education, reviewing history, and developing plan of care. Continue monthly BSE and yearly well woman exams. Return to clinic in 1 year. Exercise: 30 minutes of moderate exercise 5 days a week including cardio and strength training is recommended for a healthy lifestyle. T his should be in addition to your normal daily work/routine. If you are trying to lose weight more exercise along with a healthy diet is recommended. Supplements/Vitamins: If you are not following, or able to follow a well-balanced diet indicated below due to personal or medical reasons, it is recommended you take a m ultivitamin. This is especially important if you are trying to get as w omen need additional folic acid before and during (400-1000 micrograms per day). Daily calcium intake should be around 1200 mg per day w hich is 120% of the recommended daily allowance if looking at food labels.? W e recommend V itamin D3 2,000-3,000 international units a day i f you have not already been identified with an insufficiency or deficiency. Nutrition: A healthy diet with protein, vegetables, fruits, grains, and dairy is advised. More information including example serving sizes can be found at h ttps://www.choosemyplate.gov/.&#1 60; T hese amounts are appropriate for individuals who get less than 30 minutes per day of moderate physical activity, beyond normal daily activities. Those who are more physically active may be able to consume more while staying within calorie needs. 2. E ncounter for screening for malignant neoplasm of cervix can consider no more screening vs repeat 5yrs Ordered: AP Cytology JAR CAPPER HPV High Risk (16/18/Other) 3. H ormone replacement therapy risks, side effects HT reviewed; has tried 2x/wk and increases flushing; OK to con't 3x/wk Ordered: conjugated estrogens-medroxyprogesterone(Pre mpro 0.3 mg-1.5 mg oral tablet), 1 tab(s), Oral, every other day, # 56 tab(s), 4 total refill(s), Maintenance, 1 tab(s) Oral every other day, Pharmacy: [facility] [Federal Rx: #56 last filled 04/17/24] 4. A ge related osteopenia stressed ca, vit d, wt bearing exercise; will stop boniva and repeat dexa and vit d next yr Ordered: calcium carbonate(calcium (as carbonate) 500 mg oral tablet), See Instructions, take 1 tab bid, # 180 tab(s), 3 total refill(s), Maintenance, take 1 tab bid, Pharmacy: [facility] [Federal Rx: #180 last filled 04/17/24] 5. O ther specified abnormal findings of blood chemistry low fat/low chol diet, no more than 25% total calories from fat, Ordered: Hemoglobin A1c Lipid Panel Pt questions addressed and written discharge instructions were provided to the patient. Mahnaz Marcus [facility] CORPORATE CONSULTANT [facility] Extracted from:Title: FM 63 yo well Author: NITESH HENRY MD Date: 10/03/23 1. W malcom adult Preventative Medicine / HCM visit with no emergent concerns. ----- VACCINES: - UTD ----- - Cervical Cancer Screening: U TD Next due December 2024 - Breast C ancer Screening: D UE - L mariella Cancer Screening: N/A - C olon Cancer Screening: UTD Due June 2025 ----- BONE DENSITY: U TD ----- : N /A ----- METABOLIC: - L ipid screening: U TD - D M screening: UTD ----- SUBSTANCE USE: - T obacco use: D enies - Alcohol use: Admits R rita - Illicit drug use: Denies ----- OTHER: - Discussed wearing safety belts, helmets (if motorcycle rider), sunscreen, smoke detectors in home ----- FOLLOW UP: - Annually Ordered: Basic Metabolic Panel 2. M otion sickness In preparation for a cruise, will prescribe scopolamine patches. Ordered: scopolamine(scopolamine 1 mg/72 hr transdermal film, extended release), 1 patch(es), TransDermal, every 72 hr, # 10 patch(es), 0 total refill(s), Maintenance, 1 patch(es) TransDermal every 72 hr, Pharmacy: [facility] [Not filled] 3. N jessica pain Acute. Negative spurling maneuver, unlikely to be cervical radiculopathy. Given physical exam, most favor cervical paraspinal muscle contractures. Provided home pt exercises. Cspine XR to rule out osteoarthritis. Ordered: XR Spine Cervical 2 or 3 Views 4. B isatu cell carcinoma of skin Hx of x2, sending back to dermatology for annual skin check. Ordered: Referral Request 2.0 5. S mall fiber neuropathy Chronic, established with neurology. Continue gabapentin. Encouraged control of bp and dm to help prevent worsening of symptoms. BMP to ensure kidney function adequate for dosing of gabapentin. Ordered: Basic Metabolic Panel Referral Request 2.0 Nitesh Henry MD Ortho Assistant, PGY-3 [facility] Addendum by JESSICA DUMONT MD on October 04, 2023 08:16:11 SWIMMING POOL ATTENDANT I certify that I was present for case discussion in the Family Medicine preceptor room at the time of this encounter. I have reviewed the note and agree with the findings, assessment, and plan except as I have documented below. Follow up as listed. All labs/imaging/consults to be followed by the ordering provider. Jessica Dumont MD Extracted from:Title: Comirnaty Encounter closure Author: ARCELIA FRANCO Date: 07/20/23 Encounter has Screening Questions previously completed. Refer to screening questions for additional information of vaccination given and clearance. More information is also available in the Immunization Tab for patient's history of vaccinations. Closing Encounter for administrative completion. CPT Code 77061 [id number] Extracted from:Title: Office Clinic Note - OMT Author: NYDIA DASH, DO Date: 06/15/23 1. R ight hip pain Stretching Demonstrated: Yes Pain prior to treatment: 6/10 Pain after treatment: 0/10 Plan: 1) P t to drink plenty of water tonight 2) M ay take Tylenol as needed for pain next 48hrs 3) A pply ice or heat for additional relief 4) F ollow up: as needed 2-4 weeks C hronic medical issues and preventative health measures not addressed due to the specialty nature of this visit. Recommended annual HCM visits and regular follow up for chronic medical issues. 2. L ow back pain see above plan Capt Nydia Dash DO Family Medicine Faculty Physician [facility], [facility], [facility] Jerrod RODRIGUEZ Extracted from:Title: WWE Author: MAHNAZ MARCUS NP Date: 04/13/23 1. E ncounter for gynecological examination (general) (routine) with abnormal findings Over 50% of m inute visit spent face to face with patient on education, reviewing history, and developing plan of care. Continue monthly BSE and yearly well woman exams. Return to clinic in 1 year. Exercise: 30 minutes of moderate exercise 5 days a week including cardio and strength training is recommended for a healthy lifestyle. T his should be in addition to your normal daily work/routine. If you are trying to lose weight more exercise along with a healthy diet is recommended. Supplements/Vitamins: If you are not following, or able to follow a well-balanced diet indicated below due to personal or medical reasons, it is recommended you take a m ultivitamin. This is especially important if you are trying to get as w omen need additional folic acid before and during (400-1000 micrograms per day). Daily calcium intake should be around 1200 mg per day w hich is 120% of the recommended daily allowance if looking at food labels.? W e recommend V itamin D3 2,000-3,000 international units a day i f you have not already been identified with an insufficiency or deficiency. Nutrition: A healthy diet with protein, vegetables, fruits, grains, and dairy is advised. More information including example serving sizes can be found at h ttps://www.choosemyplate.gov/.&#1 60; T hese amounts are appropriate for individuals who get less than 30 minutes per day of moderate physical activity, beyond normal daily activities. Those who are more physically active may be able to consume more while staying within calorie needs. Ordered: multivitamin with minerals(Centrum Silver oral tablet), 1 tab(s), Oral, Daily, # 90 tab(s), 3 total refill(s), Maintenance, 1 tab(s) Oral Daily, Pharmacy: [facility] [Not filled] Lipid Panel TSH w/ Reflex FT4 and Total T3 2. O steoporosis Ordered: ibandronate(Boniva 150 mg oral tablet), 1 tab(s), Oral, every month, # 3 tab(s), 3 total refill(s), Maintenance, 1 tab(s) Oral every month, Pharmacy: [facility] [Not filled] calcium carbonate(calcium (as carbonate) 600 mg oral tablet), 1 tab(s), Oral, BID, # 180 tab(s), 3 total refill(s), Maintenance, 1 tab(s) Oral BID, Pharmacy: [facility] [Not filled] Vitamin D 25 Hydroxy Level 3. H ormone replacement therapy risks, side effects HT reviewed; discussed risks, lowest dose to manage symptoms; OK to increase to 3-4days /wk if that controls symptoms; Ordered: conjugated estrogens-medroxyprogesterone(Pre mpro 0.3 mg-1.5 mg oral tablet), 1 tab(s), Oral, Daily, # 90 tab(s), 3 total refill(s), Maintenance, 1 tab(s) Oral Daily, Pharmacy: [facility] [Not filled] 4. F lushing discussed gabapentin may help flushing but also discussed increasing # of days taking prempro 5. D ysplasia of cervix pap/HPV due 01/13 with pervious hx ALICIA 2-3 with LEEP 6. O ther specified counseling discussed RSV vaccine and covid booster; f/u with immunizations if desires Mahnaz Heller [facility] ESTELLE Elder [facility] 12/06/2024 [id number] [facility] Assessment and Plan Extracted from:Title : Imm Typhoid Travel Author: ARCELIA FRANCO Date: 11/06/24 1. V accination given hepatitis A adult vaccine: 1440 unit(s) (10/23/24 09:54:00) typhoid vaccine, parenteral: 0.5 mL (11/06/24 13:11:00) D iagnosis: 1 . V accination given Comment: Ordered: Unlisted E&M Service [id number]; 11/06/2024 13:03:00 CDT, Vaccination given VARGHESE Ham MD Other status: typhoid vaccine, inactivated; 0.5 mL, IntraMuscular, Injection, Vaccine, First Dose: 11/06/2024 13:02:00 CDT, 11/06/2024 13:02:00 CDT ( Completed) by VARGHESE GRIFFITH MD ? I mad Prq Id Subq/Im Njxs 1 Vaccine [id number]; 11/06/2024 13:03:00 CDT, Vaccination given (Completed) by VARGHESE GRIFFITH MD End of Orders Extracted from:Title: Imms Note Author: CHELSEYLILANANCYChintan ARCELIA Arron Date: 10/23/24 SCREENING CHECKLIST FOR CONTRAINDICATIONS TO VACCINES FOR A DULTS Patient here to receive vaccines recommended p er ACIP/CDC guideline standing orders . Patient read the following screening information and truthfully answered all of the required questions. Questions answered YES required further explanation, but are not necessarily a contraindication to vaccination. There were no contraindications to vaccines provided in clinic today. If the patient is receiving the RSV vaccine, the CDC recommends adults 60 years and older may receive a single dose of RSV vaccine, based on discussions between the patient and health care provider. Routine Immunization Screening Questionnaire: Adult (using DD Form 3111, October 2019 Model) 1. Are you sick today? No 2. Do you have allergies to medication food, a vaccine component, or latex? Yes, see allergy section 3. Have you ever had a serious reaction after receiving a vaccination? No 4. Have you had a seizure or brain or other nervous system problem? No 5. Have you had a health problem involving heart, lung (e.g. asthma), kidney, or metabolic disease (e.g., diabetes), anemia, or other blood disorder? 6. Do you, or a close family member, have cancer, leukemia, HIV/AIDS, or any other immune system problems? No 7. In the past 3 months, have you taken medications that weaken your immune system, such as prednisone or other steroids; anticancer drugs; biologic drugs for autoimmune diseases such as rheumatoid arthritis, Crohn's disease, or psoriasis or had radiation treatments? No 8. During the past year, have you received a transfusion of blood or blood products, or been given immune (gamma) globulin, or an anti-viral drug? NoNo 10. Have you ever passed out (vasovagal syncope) during or after a previous immunization or blood draw? No 11. Have you received any vaccinations in the past 4 weeks? No 12. For women, are you or is there a chance that you could become in the next month? N/A hepatitis A adult vaccine: 1440 unit(s) (10/23/24 09:54:00) Diagnosis: 1. Vaccination given Comment: Other status: hepatitis A adult vaccine 1440 units/1 mL; 1,440 unit(s) =, IntraMuscular, Suspension-Injection, Vaccine, First Dose: 10/23/2024 09:53:00 SWIMMING POOL ATTENDANT, 10/23/2024 09:53:00 SWIMMING POOL ATTENDANT (Completed) by VARGHESE GRIFFITH MD Office Visit Level 1 Est 76484; 10/23/2024 09:53:00 SWIMMING POOL ATTENDANT, Vaccination given (Completed) by VARGHESE GRIFFITH MD Imadm Prq Id Subq/Im Njxs 1 Vaccine [id number]; 10/23/2024 09:53:00 SWIMMING POOL ATTENDANT, Vaccination given (Completed) by VARGHESE GRIFFITH MD End of Orders More details of the vaccination administered can be found in the patient s Immunization History under the Immunizations tab. Extracted from:Title: Imms Note Author: CARTER HANCOCK, EMT Date: 10/02/24 SCREENING CHECKLIST FOR CONTRAINDICATIONS TO VACCINES FOR A DULTS Patient here to receive vaccines recommended p er ACIP/CDC guideline standing orders . Patient read the following screening information and truthfully answered all of the required questions. Questions answered YES required further explanation, but are not necessarily a contraindication to vaccination. There were no contraindications to vaccines provided in clinic today. If the patient is receiving the RSV vaccine, the CDC recommends adults 60 years and older may receive a single dose of RSV vaccine, based on discussions between the patient and health care provider. 1. Are you sick today? N o 2 . Do you have allergies to medications, food, a vaccine ingredient, or latex? Y es Latex 3 . Have you ever had a serious reaction after receiving a vaccine? N o 4 . Do you have a long-term health problem with heart, lung, kidney, or metabolic disease (e.g., diabetes), asthma, a blood clotting disorder, no spleen, complement component deficiency, a cochlear implant, or a spinal fluid leak? Are you on long-term aspirin therapy? N o 5 . Do you have cancer, leukemia, HIV/AIDS, or any other immune system problem? N o 6 . D o you have a parent, brother, or sister with an immune system problem? N o 7 . I n the past 3 months, have you taken medications that affect your immune system, such as prednisone, other steroids, or anticancer drugs; drugs for the treatment of rheumatoid arthritis, Crohn s disease, or psoriasis; or have you had radiation treatments? N o 8 . Have you had a seizure or a brain or other nervous system problem? N o 9 . During the past year, have you received a transfusion of blood or blood products or been given immune (gamma) globulin or an antiviral drug? N o 10. For women: Are you or is there a chance you could become during the next month? N o 1 1. Have you received any vaccinations in the past 4 weeks? N o ? 1 2. VIS was provided before r eceiving vaccines. Y es It was recommended that the patient remain in the clinic for 15 minutes for monitoring of potential unexpected side effects. The patient left WITHOUT apparent unexpected effects from the vaccine(s). If PPD was placed, the pt was informed on proper care of IPPD site and need for 48-72hr follow-up. Patient given proof of vaccination via p rinted record, patient can also access records via patient portal. P atient to follow-up with PCM/prescribing provider for further questions. Diagnosis: Encounter for immunization Comment: Ordered: Prevnar 20; 0.5 mL, IntraMuscular, Suspension-Injection, Vaccine, First Dose: 10/02/2024 10:43:00 SWIMMING POOL ATTENDANT, 10/02/2024 10:43:00 SWIMMING POOL ATTENDANT by VARGHESE GRIFFITH MD Other status: Imadm Prq Id Subq/Im Njxs 1 Vaccine [id number]; 10/02/2024 10:43:00 SWIMMING POOL ATTENDANT, Encounter for immunization (Completed) by VARGHESE GRIFFITH MD Diagnosis: Vaccination given Comment: Ordered: Prevnar 20; 0.5 mL, IntraMuscular, Suspension-Injection, Vaccine, First Dose: 10/02/2024 10:43:00 SWIMMING POOL ATTENDANT, 10/02/2024 10:43:00 SWIMMING POOL ATTENDANT by VARGHESE GRIFFITH MD End of Orders Extracted from:Title: [facility] [place] - Annual Wellness Visit Author: EMILEE LANE DO Date: 09/27/24 1. W ell female adult P reventative Medicine / HCM visit with no emergent concerns. ----- VACCINES: - Advised annual flu vaccine - Advised COVID-19 vaccine - Advised pneumococcal vaccine (age 65 or 19-64 if have r isk factors: smoking, DM, immunocompromised) ----- - Cervical Cancer Screening: N /A - 04/17/2024 - negative [X] Given age >65, or h/o hysterectomy, Pap not offered - Breast C ancer Screening: D UE - 10/11/2023 - BIRADS 2 - already scheduled [X] Age 50-75; initiate screening and repeat q1-2 yrs per USPSTF - L mariella Cancer Screening: N /A [_] Age 50-80 a nd 20 pack-yr smoking hx p er USPSTF - C olon Cancer Screening: D UE - Jun 2020 - Hemorrhoids - reportedly 5 year r epeat recommendation [X] Age > 4 5 per USPSTF ----- BONE DENSITY: N /A - patient sets this up through obgyn and states she had one recently. [X] Age > 6 5 ----- : N /A [_] If plans for , pt knows to take folic acid (400-800 mcg/day), avoid tob/EtOH/illicit drugs ----- METABOLIC: - L ipid screening: U TD [_] D C screening at age 65 if have had multiple screenings with acceptable measures - D M screening: U TD [_] ADA recommendation for annual screening in adults with BMI > 25 with one or more?risk factor for T2DM ( HTN, HLD, h/o CVD, h/o PCOS, FMHx) o r age 35-70 with BMI >25 ----- DIET: -Low fat: Discussed that low fat diets are considered one of the best strategies to lose or maintain weight. -Low cholesterol: Discussed that low cholesterol diets and the relationship between LDL levels and cholesterol consumption. Current 2020 Dietary guidelines for Americans no longer recommend limiting dietary cholesterol consumption to 300mg or less. Counseled patient to maintain an overall healthy eating pattern and consume as little dietary cholesterol as possible. -Vegetarian: Discussed that long-term effects of vegetarian diets on health outcomes are difficult to assess due to the wide variance among dietary restrictions. However, vegetarian diets are suggestive of lower incidence of obesity, CHD, HTN, and T2DM. -DASH: Discussed that the DASH diet recommendation according to the 2020 Dietary guidelines for Americans is to reduce sodium intake to less than 2,300mg daily, and consume 4-5 servings of fruit, 2-3 servings of vegetables, 2-3 servings of low-fat dairy, and <25% dietary intake from fat daily. Overall improvement in blood pressure, as well as, possible decreased risk of colorectal cancer, CVD, and gout (in Men) was seen with individuals following the DASH diet. -Mediterranean: Discussed that the Mediterranean diet consists of a diet high in fruits, vegetables, whole grains, etc. Mediterranean diet has been associated with decreased incidence of stroke and CVD. ----- SUBSTANCE USE: - T obacco use: D enies - Alcohol use: Denies - Illicit drug use: Denies ----- OTHER: - Discussed wearing safety belts, helmets (if motorcycle rider), sunscreen, smoke detectors in home ----- FOLLOW UP: - Annually This case has been d jude w romina purcell ttending physician, Dr. Archie kelly. //SIGNED// Capt Emilee Lane DO Ortho Assistant Physician, PGY-[address] [place] [address], [facility] [employer] Extracted from:Title: [facility] [place] - Lab/Imaging Results Author: YEVGENIY LOU DO Date: 05/24/24 1. P ain in left foot Patient called to discuss l ab and imaging results. Uric acid negative, indicating v michael low likelihood of gout. 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 No malignant appearing lesions w ere seen. -Patient encouraged to k eep her podiatry appointment to discuss p ossible surgical intervention for her bunion/bunionette -Return precautions discussed -RTC as needed Yevgeniy Lou DO Ortho Assistant, PGY-3 [place] RODRIGUEZ Addendum by NYDIA DASH DO on May 28, 2024 13:23:20 CDT I certify that I was present for case discussion in the Family Medicine preceptor room at the time of this encounter. I have reviewed the note and agree with the findings, assessment, and plan except as I have documented below. Follow up as listed. All labs/imaging/consults to be followed by the ordering provider. Maj Santa, [facility], Staff Physician Extracted from:Title: [facility] [place] - Foot Pain Author: YEVGENIY LOU DO Date: 05/24/24 1. F oot joint pain Patient coming in with f oot pain to t he first, second, and fifth m etatarsals with?solid protuberances felt a t each area of tenderness. Differential includes bunion, bone spur, soft tissue density i n the second and fifth metatarsal. The area a t the first metatarsal, however, c ould be gout. Patient states t hat there is family history of gout, but she h as no personal history of gout. -Uric acid level to evaluate for gout -X-ray of the left foot to evaluate for bony pathology -Encouraged conservative care including N SAIDs, heat, ice, u se of shoes with a wide toe box -Referral placed to podiatry for surgical consultation -Return precautions discussed -RTC as needed Ordered: Uric Acid Level XR Foot Weight Bearing 3+ Left Referral Request 2.0 - DoD Yevgeniy Lou DO Ortho Assistant, PGY-3 [place] RODRIGUEZ Addendum by XOCHITL MELO MD on May 24, 2024 11:16:09 CDT I certify that I was present for case discussion in the Family Medicine preceptor room at the time of this encounter. I have reviewed the note and agree with the findings, assessment, and plan except as I have documented below. Follow up as listed. All labs/imaging/consults to be followed by the ordering provider. Maj Kushal Murray) Family Medicine Physician [facility] [place], [place] Extracted from:Title: JAR CAPPER/WWE, pap; osteopenia Author: MAHNAZ MARCUS NP Date: 04/17/24 1. E ncounter for gynecological examination (general) (routine) with abnormal findings Over 50% of m inute visit spent face to face with patient on education, reviewing history, and developing plan of care. Continue monthly BSE and yearly well woman exams. Return to clinic in 1 year. Exercise: 30 minutes of moderate exercise 5 days a week including cardio and strength training is recommended for a healthy lifestyle. T his should be in addition to your normal daily work/routine. If you are trying to lose weight more exercise along with a healthy diet is recommended. Supplements/Vitamins: If you are not following, or able to follow a well-balanced diet indicated below due to personal or medical reasons, it is recommended you take a m ultivitamin. This is especially important if you are trying to get as w lore need additional folic acid before and during (400-1000 micrograms per day). Daily calcium intake should be around 1200 mg per day w hich is 120% of the recommended daily allowance if looking at food labels.? W e recommend V itamin D3 2,000-3,000 international units a day i f you have not already been identified with an insufficiency or deficiency. Nutrition: A healthy diet with protein, vegetables, fruits, grains, and dairy is advised. More information including example serving sizes can be found at h ttps://www.Aphiosplate.gov/.&#1 60; T hese amounts are appropriate for individuals who get less than 30 minutes per day of moderate physical activity, beyond normal daily activities. Those who are more physically active may be able to consume more while staying within calorie needs. 2. E ncounter for screening for malignant neoplasm of cervix can consider no more screening vs repeat 5yrs Ordered: AP Cytology JAR CAPPER HPV High Risk (16/18/Other) 3. H ormone replacement therapy risks, side effects HT reviewed; has tried 2x/wk and increases flushing; OK to con't 3x/wk Ordered: conjugated estrogens-medroxyprogesterone(Pre mpro 0.3 mg-1.5 mg oral tablet), 1 tab(s), Oral, every other day, # 56 tab(s), 4 total refill(s), Maintenance, 1 tab(s) Oral every other day, Pharmacy: [facility] [Federal Rx: #56 last filled 04/17/24] 4. A ge related osteopenia stressed ca, vit d, wt bearing exercise; will stop boniva and repeat dexa and vit d next yr Ordered: calcium carbonate(calcium (as carbonate) 500 mg oral tablet), See Instructions, take 1 tab bid, # 180 tab(s), 3 total refill(s), Maintenance, take 1 tab bid, Pharmacy: [facility] [Federal Rx: #180 last filled 04/17/24] 5. O ther specified abnormal findings of blood chemistry low fat/low chol diet, no more than 25% total calories from fat, Ordered: Hemoglobin A1c Lipid Panel Pt questions addressed and written discharge instructions were provided to the patient. Mahnaz Marcus [facility] ESTELLE Elder [facility] Extracted from:Title: FM 63 yo well Author: NITESH HENRY MD Date: 10/03/23 1. W [facility] adult Preventative Medicine / HCM visit with no emergent concerns. ----- VACCINES: - UTD ----- - Cervical Cancer Screening: U TD Next due December 2024 - Breast C ancer Screening: D UE - L mariella Cancer Screening: N/A - C olon Cancer Screening: UTD Due June 2025 ----- BONE DENSITY: U TD ----- : N /A ----- METABOLIC: - L ipid screening: U TD - D M screening: UTD ----- SUBSTANCE USE: - T obacco use: D enies - Alcohol use: Admits R rita - Illicit drug use: Denies ----- OTHER: - Discussed wearing safety belts, helmets (if motorcycle rider), sunscreen, smoke detectors in home ----- FOLLOW UP: - Annually Ordered: Basic Metabolic Panel 2. M otion sickness In preparation for a cruise, will prescribe scopolamine patches. Ordered: scopolamine(scopolamine 1 mg/72 hr transdermal film, extended release), 1 patch(es), TransDermal, every 72 hr, # 10 patch(es), 0 total refill(s), Maintenance, 1 patch(es) TransDermal every 72 hr, Pharmacy: [facility] [Not filled] 3. N jessica pain Acute. Negative spurling maneuver, unlikely to be cervical radiculopathy. Given physical exam, most favor cervical paraspinal muscle contractures. Provided home pt exercises. Cspine XR to rule out osteoarthritis. Ordered: XR Spine Cervical 2 or 3 Views 4. B isatu cell carcinoma of skin Hx of x2, sending back to dermatology for annual skin check. Ordered: Referral Request 2.0 5. S mall fiber neuropathy Chronic, established with neurology. Continue gabapentin. Encouraged control of bp and dm to help prevent worsening of symptoms. BMP to ensure kidney function adequate for dosing of gabapentin. Ordered: Basic Metabolic Panel Referral Request 2.0 Nitesh Henry MD Ortho Assistant, PGY-3 [facility] Addendum by JESSICA DUMONT MD on October 04, 2023 08:16:11 SWIMMING POOL ATTENDANT I certify that I was present for case discussion in the Family Medicine preceptor room at the time of this encounter. I have reviewed the note and agree with the findings, assessment, and plan except as I have documented below. Follow up as listed. All labs/imaging/consults to be followed by the ordering provider. Jessica Dumont MD Extracted from:Title: Comirnaty Encounter closure Author: ARCELIA FRANCO Date: 07/20/23 Encounter has Screening Questions previously completed. Refer to screening questions for additional information of vaccination given and clearance. More information is also available in the Immunization Tab for patient's history of vaccinations. Closing Encounter for administrative completion. CPT Code 62865 [id number]/0004A Extracted from:Title: Office Clinic Note - OMT Author: NYDIA DASH DO Date: 06/15/23 1. R ight hip pain Stretching Demonstrated: Yes Pain prior to treatment: 6/10 Pain after treatment: 0/10 Plan: 1) P t to drink plenty of water tonight 2) M ay take Tylenol as needed for pain next 48hrs 3) A pply ice or heat for additional relief 4) F ollow up: as needed 2-4 weeks C hronic medical issues and preventative health measures not addressed due to the specialty nature of this visit. Recommended annual HCM visits and regular follow up for chronic medical issues. 2. L ow back pain see above plan Capt Nydia Dash DO Family Medicine Faculty Physician [facility], [facility] [place] Extracted from:Title: WWE Author: MAHNAZ MARCUS NP Date: 04/13/23 1. E ncounter for gynecological examination (general) (routine) with abnormal findings Over 50% of m inute visit spent face to face with patient on education, reviewing history, and developing plan of care. Continue monthly BSE and yearly well woman exams. Return to clinic in 1 year. Exercise: 30 minutes of moderate exercise 5 days a week including cardio and strength training is recommended for a healthy lifestyle. T his should be in addition to your normal daily work/routine. If you are trying to lose weight more exercise along with a healthy diet is recommended. Supplements/Vitamins: If you are not following, or able to follow a well-balanced diet indicated below due to personal or medical reasons, it is recommended you take a m ultivitamin. This is especially important if you are trying to get as w lore need additional folic acid before and during (400-1000 micrograms per day). Daily calcium intake should be around 1200 mg per day w hich is 120% of the recommended daily allowance if looking at food labels.? W e recommend V itamin D3 2,000-3,000 international units a day i f you have not already been identified with an insufficiency or deficiency. Nutrition: A healthy diet with protein, vegetables, fruits, grains, and dairy is advised. More information including example serving sizes can be found at h ttps://www.Kairos ARmyplate.gov/.&#1 60; T hese amounts are appropriate for individuals who get less than 30 minutes per day of moderate physical activity, beyond normal daily activities. Those who are more physically active may be able to consume more while staying within calorie needs. Ordered: multivitamin with minerals(Centrum Silver oral tablet), 1 tab(s), Oral, Daily, # 90 tab(s), 3 total refill(s), Maintenance, 1 tab(s) Oral Daily, Pharmacy: [facility] [Not filled] Lipid Panel TSH w/ Reflex FT4 and Total T3 2. O steoporosis Ordered: ibandronate(Boniva 150 mg oral tablet), 1 tab(s), Oral, every month, # 3 tab(s), 3 total refill(s), Maintenance, 1 tab(s) Oral every month, Pharmacy: [facility] [Not filled] calcium carbonate(calcium (as carbonate) 600 mg oral tablet), 1 tab(s), Oral, BID, # 180 tab(s), 3 total refill(s), Maintenance, 1 tab(s) Oral BID, Pharmacy: [facility] [Not filled] Vitamin D 25 Hydroxy Level 3. H ormone replacement therapy risks, side effects HT reviewed; discussed risks, lowest dose to manage symptoms; OK to increase to 3-4days /wk if that controls symptoms; Ordered: conjugated estrogens-medroxyprogesterone(Pre mpro 0.3 mg-1.5 mg oral tablet), 1 tab(s), Oral, Daily, # 90 tab(s), 3 total refill(s), Maintenance, 1 tab(s) Oral Daily, Pharmacy: [facility] [Not filled] 4. F lushing discussed gabapentin may help flushing but also discussed increasing # of days taking prempro 5. D ysplasia of cervix pap/HPV due 01/13 with pervious hx ALICIA 2-3 with LEEP 6. O ther specified counseling discussed RSV vaccine and covid booster; f/u with immunizations if desires Mahnaz Marcus [facility] CORPORATE CONSULTANT [place] [facility] 12/06/2024 [id number] [facility] Functional Status Combined list of recent functional and cognitive assessments recorded at Department of Defense and Veterans Affairs (VA).VA Functional [place] Measurement (FIM) Scale: 1 = Total Assistance (Subject = 0% +), 2 = Maximal Assistance (Subject = 25% +), 3 = Moderate Assistance (Subject = 50% +), 4 = Minimal Assistance (Subject = 75% +), 5 = Supervision, 6 = Modified Stanfield (Device), 7 = Complete Stan[place] (Timely, Safely). Assessment Date/Time Source Assessment Type Assessment Skill Assessment Score Assessment Details No data available for this section
--- OUTSIDE RECORDS SUMMARY | 2024-12-06 04:35 | XMS_ITS | Clinical Summary ---
Author Organization [facility] Address [address] [place] [address] Phone Care Team Providers Care Special Needs Child Caregiver Name Role Phone Demetria Mckeon MD Primary Care Pro vider Allergies Active Allergy Reactions Criticality Noted Date Comments Latex Rash Low 08/17/2021 Medications conjugated estrogens-medrox yPROGESTERone (PREMPRO) 0.3-1.5 mg Tablet Take 1 Tablet by mouth daily. 0 Active calcium as carbonate (CALTRATE) 1,500 mg (600 mg elemental) Tablet Take by mouth 2 times daily. 0 Active cholecalciferol, Vitamin D3, 50 mcg (2,000 unit) Tablet Take 2,000 Units by mouth daily. 0 Active [id number]-[id number]-DHA-Fis h Oil-Flax-E [phone] ms-wv-jg-unit Capsule Take 1 Capsule by mouth daily. Active MULTIVIT 06-[id number]- CHROM ORAL Active Biotin 1 mg Tablet Take by mouth daily. Active cycloSPORINE (Restasis) 0.05 % emulsion 1 Drop by Ophthalmic route every 12 hours. Active ibandronate (BONIVA) 150 mg tablet Take 1 Tablet by mouth. 1 Active ascorbic acid, vitamin C, (VITAMIN C) 1,000 mg Tablet Take 1,000 mg by mouth daily. Active carbonyl iron (FEOSOL) 45 mg Tablet Take 45 mg by mouth daily. Active oxyCODONE-acetam inophen (Percocet) 5-325 mg tabletIndication s:Unacceptable contours of existing restorationism Take 1 Tablet by mouth every 4 hours as needed for moderate pain. Max Daily Amount: 6 Tablets 12 Tablet 10/06/2021 1:23 PM HEPATOLOGIST 2 Active Immunizations Immunization Administration Dates Next Due (ePais[employer] - Payments Anytime | Anywhere)(12 YR UP) COVID-19 VACCINE - EMERGENCY USE AUTHORIZATION, MRNA, [id number](PF) 30 MCG/0.3 ML IM SUSP 08/30/2020,08/09/2020 Family History Medical History Relation Name Comments Heart Disease Brother Relation Name Status Comments Brother Social History Tobacco Use Types Packs/Day Years Used Date Smoking Tobacco: Never Smokeless Tobacco: Never Alcohol Use Standard Drinks/Week Comments Not Currently 0 (1 standard drink = 0.6 oz pur e alcohol) Comments No Sex and Gender Information Value Date Recorded Sex Assigned at Not on file Legal Sex Female 3:03 PM CDT Gender Identity Not on file Sexual Orientation Not on file Last Filed Vital Signs Vital Sign Reading Time Taken Comments Blood Pressure 120/61 10/06/2021 2:00 PM HEPATOLOGIST Pulse 84 10/06/2021 1:02 PM HEPATOLOGIST Temperature 36.9 C (98.4 F) 10/06/2021 2:00 PM HEPATOLOGIST Respiratory Rate 13 10/06/2021 12:45 PM HEPATOLOGIST Oxygen Saturation 99% 10/06/2021 2:00 PM HEPATOLOGIST Inhaled Oxygen Concentration - - Weight 54 kg (119 lb) 10/06/2021 6:10 AM HEPATOLOGIST Height 167.6 cm (5' 6 ) 10/06/2021 6:10 AM HEPATOLOGIST Body Mass Index 19.21 10/06/2021 6:10 AM HEPATOLOGIST Plan of Treatment Health Maintenance Due Date Last Done Comments COLORECTAL SCREENING 2004 Colorectal Cancer Screening 2004 FIT-DNA Q 3 years 2004 FIT/FOBT Q 1 year 2004 Flex Sig/CT Colonography Q 5 years 2004 PNEUMOCOCCAL VACCINE 50+ YEA RS (1 of 1 - PCV) 2009 DTAP/TDAP/TD VACCINES (2 - Td or Tdap) 10/28/2018 BREAST CANCER SCREENING 09/30/2022 09/30/2021 INFLUENZA VACCINE (#1) 2024 OSTEOPOROSIS SCREENING 2024 COVID-19 Vaccine (3 - 2023- season) 04/22/202404/2021, 08/09/2020 RSV VACCINE (60+ or ) (1 - 1-dose 75+ series) 2034 ZOSTER VACCINE Completed 01/08/2020, 09/28/[address] [place] [address] [place] [address] Care Teams Special Needs Child Caregiver Relationship Specialty Start Date End Date Demetria Mckeon MD [address] [address] [place] [address] PCP - General Family Practice 08/03/21"
--- OUTSIDE RECORDS SUMMARY | 2024-12-06 04:35 | XMS_ITS | Encounter Summary ---
Author Organization [facility] Address [address] [place] [address] Care Team Providers Care Credit Director Name Role Phone Unavailable Primary Care Provider Unavailabl e Encounter Details Date Type Department Care Team (Late st Contact Info) Description 01/21/2023 Lab Requisition [facility] - DermPath Lab [address] [place] [id number] Kyrs Garcia MD [address] [place] [address] [place] [id number] Neoplasm of uncertain behavior of skin Social History Tobacco Use Types Packs/Day Years Used Date Smoking Tobacco: Never Assessed Comments Unknown Sex and Gender Information Value Date Recorded Sex Assigned at Not on file Legal Sex Female 4:25 PM CDT Gender Identity Not on file Sexual Orientation Not on file documented as of this encounter Plan of Treatment Not on file documented as of this encounter Procedures Procedure Name Priority Date/Time Associated Diagnosis Comments DERMATOPATHOLOGY Routine 01/21/2023 3:33 AM CDT Neoplasm of uncertain behavior of skin [ICD-10-CM] documented in this encounter Results * DERMATOPATHOLOGY (01/21/2023 3:33 AM CDT) Case Report Dermatopathology Report Case: [id number] Authorizing Provider: Krys Garcia MD Collected: 01/21/2023 03:33 AM Ordering Location: [facility] DermPath Lab Received: 01/24/2023 01:21 PM Pathologist: Annika Portillo MD Specimen: Skin, right frontal scalp 1:53 PM CDT DERMATOPATHOLOGY LABORATORY Final Diagnosis Specimen A. SKIN, right frontal scalp: BASAL CELL CARCINOMA, NODULAR TYPE, PIGMENTED (C44.41) 3 1:53 PM CDT DERMATOPATHOLOGY LABORATORY Clinical History Basal cell carcinoma vs MM 3 1:53 PM CDT DERMATOPATHOLOGY LABORATORY Gross Description Specimen A: Received is one formalin filled container labeled with the patient's name and designated right frontal scalp. The specimen consists of a shave biopsy measuring 6x4x1 mm. Jar 0. 3 1:53 PM CDT DERMATOPATHOLOGY LABORATORY Microscopic Description Specimen A. SKIN, right frontal scalp: Within the dermis there are aggregates of basaloid cells with a high nuclear to cytoplasmic ratio and peripheral palisading. There is abundant melanin. 3 1:53 PM CDT DERMATOPATHOLOGY LABORATORY Disclaimer An external and internal positive and negative controls are appropriate for the histochemical, immunohistochemical and immunofluorescence stain(s) in this case (if any), except where stated explicitly. The performance characteristics of the stain(s) cited in this report were developed and its performance characteristic determined by the Dermatopathology Laboratory at [facility], directed by Dr. Kathy San. These tests need not be, and therefore are not, approved by the [place] Food and Drug Administration. The tests are used for clinical purposes. Billing Codes Specimen Charges Stain Charges 81277 1 3 1:53 PM CDT DERMATOPATHOLOGY LABORATORY Embedded Images 3 1:53 PM CDT DERMATOPATHOLOGY LABORATORY Pathology/Cytolo gy TISSUE SPECIMEN FROM SKIN / Unknown 01/21/2023 3:33 AM CDT 01/24/2023 1:21 PM CDT us Krys Garcia MD LAB - PATHOLOGY/CYTOLOGY ORDERAB LES Final Result DERMATOPATHOLOGY LABORATORY [facility] - Department of Dermatology [address], [address] [phone] documented in this encounter Visit Diagnoses Diagnosis Neoplasm of uncertain behavior of skin documented in this encounter
--- OUTSIDE RECORDS SUMMARY | 2024-12-06 04:35 | XMS_ITS | Encounter Summary ---
Author Organization [facility] Address [address] [place] [address] Care Team Providers Care Sales And Marketing Professional Name Role Phone Nitesh Henry MD Primary Care Provider [phone] Malcolm Gaona DO Primary Care Provider [phone] Encounter Details Date Type Department Care Team (Late st Contact Info) Description 06/25/2024 GroundWork Message Enc [facility] Pre-[place] [place] [address] [facility], [facility] Provider Please Call us at your earliest convenience Social History Tobacco Use Types Packs/Day Years Used Date Smoking Tobacco: Never Smokeless Tobacco: Never Comments No Sex and Gender Information Value Date Recorded Sex Assigned at Female 10/12/2024 11:37 AM SUPERINTENDENT INSTITUTION Legal Sex Female 4:03 PM CDT Gender Identity Not on file Sexual Orientation Not on file documented as of this encounter Plan of Treatment Not on file documented as of this encounter Visit Diagnoses Not on filedocumented in this encounter Care Teams Sales And Marketing Professional Relationship Specialty Start Date End Date Nitesh Henry MD [address] [address] PCP - General 09/30/22 06/26/24 Malcolm Gaona DO [address] [facility] [address] [place] [address] PCP - General 06/27/24 documented as of this encounter
--- OUTSIDE RECORDS SUMMARY | 2024-12-06 04:35 | XMS_ITS | Clinical Summary ---
Author Organization [facility] Address [address] [place] [address] Care Team Providers Care Facing Cutting Machine Operator Name Role Phone Unavailable Primary Care Provider Unavailabl e Source Comments [facility],non-owned Affiliates and Associated Physician Practices is amultiple site organization consisting of ambulatory clinics and hospital sitesin [place], [place], [place] and [place]. This disclosure is being madepursuant to the Care Everywhere program and may not contain all information available regarding this patient. Last updated 18.[facility] Tweet Category Social History Tobacco Use Types Packs/Day Years Used Date Smoking Tobacco: Never Assessed Comments Unknown Sex and Gender Information Value Date Recorded Sex Assigned at Not on file Legal Sex Female 4:25 PM CDT Gender Identity Not on file Sexual Orientation Not on file Plan of Treatment Health Maintenance Due Date Last Done Comments BONE DENSITY TESTING 1959 COLOGUARD (AGES 45-75) - COL ON CA SCREENING 1959 COLON MONITORING 1959 COLONOSCOPY - COLON CA SCREENING 1959 CT COLONOGRAPHY - COLON CA SCREENING 1959 Colorectal Cancer Screening 1959 FIT - COLON CA SCREENING 1959 FLEX SIG - COLON CA SCREENING 1959 LIPID TESTING 1959 MAMMOGRAM 1959 PAP SMEAR 1959 HIV SCREENING 1974 HEPATITIS C SCREENING 04/09/1977 DTAP/TDAP/TD VACCINES (1 - Tdap) 1978 PNEUMOCOCCAL VACCINE 50+ (1 of 1 - PCV) 2009 ZOSTER VACCINE (1 of 2) 2009 COVID-19 VACCINE ( - 2023-2 5 season) 2024 DEPRESSION SCREENING 08/22/2024 INFLUENZA VACCINE (Season Ended) 2025 Respiratory Syncytial Virus (RSV) Vaccine Pt: or over 60 yrs (1 - 1-dose 75+ series) 2034 HEPATITIS B VACCINE Aged Out No longe r eligible based on patient's age to complete this topic HIB VACCINE Aged Out No longer eligi ble based on patient's age to complete this topic HPV VACCINE Aged Out No longer eligi ble based on patient's age to complete this topic MENINGOCOCCAL (Group B) VACC INE SHARED DECISION-MAKING Aged Out No longer eligibl e based on patient's age to complete this topic MENINGOCOCCAL GROUPS A/C/Y/W VACCINE Aged Out No longer eligible b ased on patient's age to complete [place] [address] JAREN
--- NOTE | 2024-12-06 04:58 | ED_ITS ---
HPI - Female Genitourinary General Chief complaint: Urogenital-Female Stated complaint: uti Time Seen by Provider: 12/06/24 04:36 History of Present Illness HPI Narrative: Patient is a 64-year-old female who presents the emergency department this morning complaining of dysuria and urinary frequency. Patient states that she has had some UTIs in the past and this feels very similar. Symptoms started this morning. Patient states that she has a plane this morning to catch to [place] and wanted to get checked out for UTI prior to traveling. Denies any additional symptoms or concerns, denies any recent illness, fevers or chills. Related Data Allergies Allergy/AdvReac Type Severity Reaction Status Date / Time latex AdvReac Severe Hives Verified 12/06/24 04:42 Review of Systems Review of Systems: All systems are reviewed and are negative unless stated otherwise in the HPI. Exam Narrative: General: Alert, awake, afebrile, in no acute distress. HEENT: PERRL, no rhinorrhea, no post nasal drip, oropharynx clear. Neck: Trachea midline, no JVD, no lymphadenopathy. Cardiovascular: Regular rate and rhythm, no murmurs, rubs or gallops, no peripheral edema. Respiratory: Clear to auscultation bilaterally, no tachypnea, no wheezing, no rhonchi, no rubs, no respiratory distress. Abdomen: Soft, nontender, nondistended, no rebound, no guarding, no peritoneal signs. Musculoskeletal: No joint swelling or deformity, normal muscle tone. Skin: No rashes or petechia, no signs of infection. Psychiatric: Alert and oriented, normal behavior and judgment for situation. Neurological: Alert and oriented to person, place, and time. Follows all commands. No focal deficits, speech is clear and fluent. Course Vital Signs Vital signs: Vital Signs Temperature 97.6 F 12/06/24 04:33 Pulse Rate 75 12/06/24 04:33 Respiratory Rate 16 12/06/24 04:33 Blood Pressure 156/79 H 12/06/24 04:33 Pulse Oximetry 98 12/06/24 04:33 Oxygen Delivery Room Air 12/06/24 04:33 Temperature 97.6 F 12/06/24 04:33 Pulse Rate 75 12/06/24 04:33 Respiratory Rate 16 12/06/24 04:33 Blood Pressure 156/79 H 12/06/24 04:33 Pulse Oximetry 98 12/06/24 04:33 Oxygen Delivery Room Air 12/06/24 04:33 MDM - Female Genitourinary MDM Narrative Medical decision making narrative: The patient was evaluated by myself in the emergency department. History is obtained from patient who is an independent historian and physical exam was performed. External medical records were reviewed at this time. Patient was administered 200 mg of oral Pyridium. Urinalysis was obtained and did reveal urinary tract infection with greater than 100 RBCs and greater than 100 wbc's, 3+ leuk esterases and 3+ bacteria. Differential diagnosis considerations include urinary tract infection, pyelonephritis. Comorbidities impacting this visit include none. I have evaluated and discussed social determinants of health with the patient that could potentially impact subsequent diagnosis and treatment plans. On repeat assessment of the patient, reevaluation revealed that the patient is doing well and is in no acute distress. Patient symptoms have improved since she arrived to our emergency department. Repeat vital signs were all reviewed and noted to be stable. Differential diagnosis and treatment plan were discussed with the patient at bedside. Patient agrees with discussion and after shared medical decision making agrees with discharge. All questions were answered to the patient's satisfaction. Patient will follow up with her PCP in 3-5 days. A script for cephalexin was sent to patient's pharmacy to take as prescribed for her UTI. Patient was provided with strict return precautions and instructed to return to the emergency department if any new or worsening symptoms develop. The patient was discharged in stable condition. Lab Data Labs: Lab Results 12/06/24 Range/Units 04:40 Urine Color Yellow (Yellow) Urine Appearance Cloudy H (Clear) Urine pH 5.5 (5.0-9.0) Ur Specific [place] 1.015 (1.001-1.035) Urine Protein 1+ H (Negative) mg/dL Urine Glucose (UA) Negative (Negative) mg/dL Urine Ketones Negative (Negative) mg/dL Ur Blood (Man) 3+ H (Negative) Urine Nitrate Negative (Negative) Urine Bilirubin Negative (Negative) Urine Urobilinogen 0.2 (<2.0) mg/dL Leukocyte Esterase Rfl 3+ H (Negative) SAMUEL/UL Urine RBC >100 H (0-2) /hpf Urine WBC >100 H (0-3) /hpf Ur Squamous Epith Cells None seen (Few) /hpf Urine Bacteria 3+ H /hpf Urine Casts 0-2 Discharge Plan Discharge Clinical Impression: Urinary tract infection Patient Disposition: Home Condition: Improved Instructions: Antibiotic Form, Urinary Tract Infection in Women (ED) Additional Instructions: Please follow-up with your family doctor within the next 3-5 days. Return to the emergency department if any new or worsening symptoms develop. Take the prescribed antibiotic as instructed for urinary tract infection. Patient Language: Algerian Prescriptions: New cephalexin 500 mg capsule 500 mg PO Q12H 7 Days Qty: 14 0RF Follow-up/Referrals: PHYSICIAN,ERGONOMICS ENGINEER [Primary Care Provider] - Kevin Ghotra MD [Physician] - 3 Days Time of Disposition: 04:58
[2024-12-06 04:59] LABS: Add Urine Microscopic? YES; Appearance Urine Cloudy (Clear); Bacteria Urine 3+ /hpf; Bilirubin Urine Negative (Negative); Blood Urine 3+ (Negative); Color Urine Yellow (Yellow); Glucose Urine UA Negative (Negative); Ketones Urine Negative (Negative); Leukocyte Esterase Ur 3+ LEU/UL (Negative); Nitrate Urine Negative (Negative); Non Pathogenic Casts 0-2; Protein Urine 1+ mg/dL (Negative); RBC Urine >100 /hpf (0-2); Specific Grav Ur 1.015 (1.001-1.035); Squamous Epithelial Cell Urine None Seen /hpf (Few); Urobilinogen Urine 0.2 mg/dL (<2.0); WBC Urine >100 /hpf (0-3); pH Urine 5.5 (5.0-9.0)
[2024-12-06] MEDS: PHENAZOPYRIDINE HCL 100 MG TABLET 200 MG PO (05:04)
--- OUTSIDE RECORDS SUMMARY | 2024-12-06 05:08 | XMS_ITS | Clinical Summary ---
Author Organization [facility] Address [address] [place] [address] Phone Care Team Providers Care [employer] Former Name Role Phone Demetria Mckeon MD Primary [...] 2,000 Units by mouth daily. 0 Active [id number]-Fis h Oil-Flax-E [phone] po-jy-cm-unit Capsule Take 1 Capsule by mouth daily. Active MULTIVIT [id number]- CHROM ORAL Active Biotin 1 mg Tablet [...] 5-325 mg tabletIndication s:Unacceptable contours of existing yazidi Take 1 Tablet by mouth every 4 hours as needed for moderate pain. Max Daily Amount: 6 Tablets 12 Tablet 10/06/2021 1:23 PM TOPOGRAPHICAL SURVEYOR 2 Active Immunizations Immunization Administration Dates Next Due ([employer])(12 YR UP) COVID-19 VACCINE - EMERGENCY USE AUTHORIZATION, MRNA, [id number](PF) 30 MCG/0.3 ML IM SUSP 08/30/2020,08/09/2020 Family [...] Comments Blood Pressure 120/61 10/06/2021 2:00 PM TOPOGRAPHICAL SURVEYOR Pulse 84 10/06/2021 1:02 PM TOPOGRAPHICAL SURVEYOR Temperature 36.9 C (98.4 F) 10/06/2021 2:00 PM TOPOGRAPHICAL SURVEYOR Respiratory Rate 13 10/06/2021 12:45 PM TOPOGRAPHICAL SURVEYOR Oxygen Saturation 99% 10/06/2021 2:00 PM TOPOGRAPHICAL SURVEYOR Inhaled Oxygen Concentration - - Weight 54 kg (119 lb) 10/06/2021 6:10 AM TOPOGRAPHICAL SURVEYOR Height 167.6 cm (5' 6 ) 10/06/2021 6:10 AM TOPOGRAPHICAL SURVEYOR Body Mass Index 19.21 10/06/2021 6:10 AM TOPOGRAPHICAL SURVEYOR Plan of Treatment Health Maintenance Due Date [...] ZOSTER VACCINE Completed 01/08/2020, 09/28/[address] [place] [address] [address] [place] [address] Care Teams [employer] Former Relationship Specialty Start Date End Date Demetria Mckeon MD [address] [address] [place] [address] PCP - General Family Practice 08/03/21
--- OUTSIDE RECORDS SUMMARY | 2024-12-06 05:08 | XMS_ITS | Continuity of Care Document ---
Author Name [facility] Organization [facility] Care Team Providers Care Technology Integration Specialist Name Role Phone [facility] Unavailable Unavailable Problems Combined list of problems [...] # 3 tab(s), 3 total refill(s ), [facility], Pharmacy : [facility] Oral (given by mouth) Ordered 4 2022 3.0 0055C-3 [facility] calcium (as carbonate) 500 mg oral tablet See Instruct ions, take 1 tab bid, # 180 tab(s), 3 total refill(s ), [facility] Ordered 5 2023 180.0 0055C-3 [facility] calcium (as carbonate) 600 mg oral tablet 180 tab(s), 0 total refill(s ), Soft Stop Complet ed 10/03/20232023 0055C-3 75th SONIA Elder calcium (as carbonate) 600 mg oral tablet 1 tab(s), Oral, BID, # 180 tab(s), 3 total refill(s ), [facility], Pharmacy : [facility] Oral (given by mouth) Discont inued 04/17/2024 4 2023 180.0 0055C-3 [facility] Centrum Silver oral tablet 1 tab(s), Oral, Daily, # 90 tab(s), 3 total refill(s ), [facility], [facility]acy : [facility] Oral (given by mouth) Ordered 2022 90.0 0055C-3 [facility] cholecalcif chantale 50 mcg (2000 intl [...] y gabapentin Oral, 0 total refill(s ), [facility] Oral (given by mouth) [...] 56 tab(s), 4 total refill(s ), [facility], Pharmacy : [facility] Oral (given by mouth) Ordered 5 2023 56.0 0055C-3 75[facility] Prempro 0.3 mg-1.5 mg oral tablet 1 tab(s), Oral, Daily, # 90 tab(s), 3 total refill(s ), [facility], Pharmacy : [facility] Oral (given by mouth) Discont inued 04/17/2024 3 2023 90.0 0055C-3 75[facility] Restasis 0.05% ophthalmic emulsion 180 unknown unit, 0 total refill(s ), Soft Stop Discont inued 10/03/20232023 0055C-3 75th [facility] [place] scopolamine 1 mg/72 hr transdermal film, extended release 1 patch(es ), TransDer mal, every 72 hr, # 10 patch(es ), 0 total refill(s ), Tia young, Pharmacy : [facility] TransD ermal (apply on the skin) Complet ed 04/17/2024 2023 10.0 6130C-A f-C-375 [facility] [place] scopolamine 1 mg/72 hr transdermal film, extended release 10 patch(es ), 0 Refill(s ), 0 total refill(s ), Soft Stop Discont inued 04/17/20242023 0055C-3 75th [facility] [place] Vitamin D3 50 mcg (2000 intl units) oral tablet 90 tab(s), 0 total refill(s ), Soft Stop Ordered 2022 0055C-3 75th [facility] Allergies, Adverse Reactions, Alerts Combined list of allergies from Department of Defense and Veterans Affairs facilities. It does not include entries that were removed or entered in error. Substance Category Reaction Severity Reaction type Status Date Reported Comments Source Latex Allergy to substance Rash Moderate Active 04/13/2023 0055C-37 5th [facility] Immunizations Combined list of available immunizations from the Department of Defense and Veterans Affairs facilities. Immunization Series Date Given Administered By Site Reaction Lot Number CVX Code Drug Magazine Grinder Loader Status Comments Source typhoid vaccine, parenteral 2024 ARCELIARGARCIAFA JAZMIN Campbell cynthia, left (delt oid) [id number] sanofi pasteur complet ed typhoid vaccine, parentera l 11/06/24 Given 0055C-3 75th [facility] [place] hepatitis A adult vaccine 2024 SINANGARCIAFA JAZMIN Campbell cynthia, right (delt oid) [id number] ZazubaoSmTouchdown TechnologiesKli ne complet ed hepatitis A adult vaccine 10/23/24 Given 0055C-3 75th [facility] [place] pneumococcal 20-valent conjugate vaccine 2024 ELADIA Thompsonul cynthia, right (delt oid) [id number] Pfizer Inc complet ed pneumococ jacky 20-valent conjugate vaccine 10/02/24 Given 0055C-3 75th [facility] [place] COVID-19 vaccine(Comir ravinder 12y+) 2022 CASSIDY ROBROSAMARIA marie, right (delt oid) [id number] Trelligence [employer] complet ed COVID-19 vaccine(C omirnaty 12y+) 07/20/23 Given 0055C-3 [facility] [place] COVID Vaccine Pfizer 2020 ALEXRGARCIAFA NTAUZZI 208 complet ed COVID Vaccine Pfizer 08/30/20 Recorded 0055C-3 [facility] COVID Vaccine Pfizer 2019 ALEXRGARCIAFA NTAUZZI 208 [...] toxoids (Td) adult/adol 2018 zzRig ht Arm [id number] 09 sanofi pasteur complet ed tetanus-d iphth toxoids (Td) adult/ado l 11/07/18 Given Ambulat ory Pharmac y tetanus-dipht h toxoids (Td) adult/adol 2018 [id number] 09 sanofi pasteur complet ed tetanus-d iphth toxoids (Td) adult/ado l 11/07/18 Given Ambulat ory Pharmac y hepatitis B adult vaccine 2008 zzRig ht Arm [id number] [id number] 43 GlaxoSmithKli ne complet ed hepatitis B adult vaccine 10/28/08 Given Ambulat ory Pharmac y tetanus, diphtheria, acellular pertu is 2008 zzLef t Arm [id number] 1AB 115 GlaxoSmithKli ne complet ed tetanus, diphtheri a, acellular pertussis 10/28/08 Given Ambulat ory Pharmac y hepatitis B adult vaccine 2008 [id number] 0AA 43 GlaxoSmithKli ne complet ed hepatitis B adult vaccine 10/28/08 Given Ambulat ory Pharmac y tetanus, diphtheria, acellular pertu is 2008 [id number] 1AB 115 GlaxoSmithKli ne complet ed tetanus, [...] Severe decrease <15 Kidney failure -3 75[facility] Hematolog y Baso Absolute 0.0 x10^3/mc L 0.0 - 0.1103 09/05 N 0055A-[address] [place] [address] Hematolog y Lymph Absolute 1.2 x10^3/mc L 1.2 - 4.0103 09/05 N 0055A-[address] [place] [address] Hematolog y Eosinophil % Auto 3 % 0 - 5 09/05 N 0055A-[address] [place] [address] Hematolog y Lymphocyte % Auto 31.9 % 20.0 - 40.0 09/05 N 0055A-[address] [place] [address] Hematolog y Basophil % Auto 0.5 % 0.0 - 2.5 09/05 N 0055A-[address] [place] [address] Hematolog y Eos Absolute 0.1 x10^3/mc L 0.0 - 0.7103 09/05 N 0055A-[address] [place] [address] Hematolog y Neutro Absolute 2.0 x10^3/mc L 2.0 - 7.0103 09/05 N 0055A-[address] [place] [address] Hematolog y Neutrophil % Auto 52.5 % 46.0 - 77.0 09/05 N 0055A-[address] [place] [address] Hematolog y Monocyte % Auto 12 % 1 - 12 09/05 N 0055A-[address] [place] [address] Hematolog y Dupage Absolute 0.5 x10^3/mc L 0.2 - 0.8103 09/05 N 0055A-[address] [place] [address] Chemistry Calcium 9.6 mg/dL 8.4 - 10.2 09/05 N 0055A-[address] [place] [address] Chemistry BUN/Creat Ratio 20 mg/dL 12 - 20 09/05 N 0055A-[address] [place] [address] Chemistry BUN 16 mg/dL 7 - 20 09/05 N 0055A-[address] [place] [address] Chemistry CO2 28 mmol/L 22 - 29 09/05 N 0055A-[address] [place] [address] Chemistry Chloride 107 mmol/L 98 - 107 09/05 N 0055A-[address] [place] [address] Chemistry Potassium Lvl 4.1 mmol/L 3.5 - 5.1 09/05 N 0055A-[address] [place] [address] Chemistry Glucose Lvl 87 mg/dL 74 - 99 09/05 N 0055A-[address] [place] [address] Chemistry Creatinine Level 0.80 mg/dL 0.57 - 1.11 09/05 N 0055A-[address] [place] [address] Chemistry Sodium 143 mmol/L 136 - 145 09/05 N 0055A-[address] [place] [address] Chemistry AGAP 8.00 0.00 - 15.00 09/05 N 0055A-[address] [place] [address] Hematolog y WBC 3.8 x10^3/mc L 4.0 - 11.0103 09/05 L 0055A-[address] [place] [address] Hematolog y RDW 11.9 % 11.0 - 14.9 09/05 N 5A-[address] [place] [address] Hematolog y MCH 32 pg 28 - 33 09/05 N 0055A-[address] [place] [address] Hematolog y Hemoglobin 13.9 g/dL 11.0 - 15.0 09/05 N 5A-[address] [place] [address] Hematolog y Hematocrit 41 % 34 - 46 09/05 N 5A-[address] [place] [address] Hematolog y Platelets 175.0 x10^3/mc L 150.0 - 450.0103 09/05 N -[address] [place] [address] Hematolog y RBC 4.4 x10^6/mc L 3.6 - 5.0106 09/05 N -[address] [place] [address] Hematolog y MPV 10.8 fL 7.4 - 10.4 09/05 H - [address] [place] [address] Hematolog y MCHC 33.7 g/dL 33.0 - 36.5 09/05 N -[address] [place] [address] Hematolog y MCV 94 fL 80 - 97 09/05 N -[address] [place] [address] Chemistry eAvg Glucose 94 mg/dL 09/05-[address] [place] [address] Chemistry Hemoglobin A1c 4.9 % 4.0 - [...] the patient and ordering Hemoglobin Electrophor esis. [address] [place], [place] [address] Chemistry HDL Cholesterol 64 mg/dL 40 - 59 09/05 H Interpretiv e Data: HDL (HIGH DENSITY LIPOPROTEIN ): ADULTS: Low: < 40 mg/dL High: >/= 60 mg/dL AGES 0 -19: Low: < 40 mg/dL Borderline Low: 40 - 45 mg/dL Acceptable: > 45 mg/dL [address] [place], [place] [address] Chemistry Cholesterol Total 189 mg/dL 09/05 N Interpretiv e Data: According to the [place] [employer] : AGES 0-19: Desirable: < 170 mg/dL Borderline High: 170-199 mg/dL High Blood Cholesterol : >/= 200 mg/dL ADULTS: Desirable < 200 mg/dL Borderline High: 200-239 mg/dL High Blood Cholesterol : >/= 240 mg/dL [facility] [employer] Chemistry Chol/HDL 3 mg/dL 09/[address] [place], [place] [address] Chemistry Triglycerid es 59 mg/dL 7 - 149 09/05 N Interpretiv e Data: AGES 0-9: Desirable: < 75 mg/dL Borderline High: 75-99 mg/dL High: >/= 100 mg/dL AGES 10-19: Desirable: < 90 mg/dL Borderline High: 90-129 mg/dL High: >/= 130 mg/dL ADULTS: Desirable: < 150 mg/dL Borderline High: 150-199 mg/dL High: >/= 240 mg/dL Very High: >/= 500 mg/dL [address] [place], [place] [address] Chemistry LDL/HDL 2 09/[address] [place] [address] [place] Chemistry LDL 118 mg/dL 100 - 130 09/05 N Interpretiv e Data: AGES 0-19: Desirable: < 110 mg/dL Borderline High: 110-129 mg/dL High: >/= 130 mg/dL ADULTS: Desirable: <100 mg/dL Near/above optimal: 100-130 mg/dL Borderline High: 131-159 mg/dL High: 160-189 mg/dL Very High: 190 mg/dL [address] [place], [place] [address] Chemistry Uric Acid 4.6 mg/dL 2.6 - 6.0 05/[address] [place] [address] [place] Chemistry Triglycerid es 55 mg/dL 7 - 149 04/19 N Interpretiv e Data: AGES 0-9: Desirable: < 75 mg/dL Borderline High: 75-99 mg/dL High: >/= 100 mg/dL AGES 10-19: Desirable: < 90 mg/dL Borderline High: 90-129 mg/dL High: >/= 130 mg/dL ADULTS: Desirable: < 150 mg/dL Borderline High: 150-199 mg/dL High: >/= 240 mg/dL Very High: >/= 500 mg/dL [address] [place] [address] [place] Chemistry LDL/HDL 2 04/[address] [place] [address] [place] Chemistry LDL 124 mg/dL 100 - 130 04/19 N Interpretiv e Data: AGES 0-19: Desirable: < 110 mg/dL Borderline High: 110-129 mg/dL High: >/= 130 mg/dL ADULTS: Desirable: <100 mg/dL Near/above optimal: 100-130 mg/dL Borderline High: 131-159 mg/dL High: 160-189 mg/dL Very High: 190 mg/dL [address] [place] [address] [place] Chemistry HDL Cholesterol 69 mg/dL 40 - 59 04/19 H Interpretiv e Data: HDL (HIGH DENSITY LIPOPROTEIN ): ADULTS: Low: < 40 mg/dL High: >/= 60 mg/dL AGES 0 -19: Low: < 40 mg/dL Borderline Low: 40 - 45 mg/dL Acceptable: > 45 mg/dL [address] [place] [address] Chemistry Cholesterol Total 202 mg/dL 04/19 H Interpretiv e Data: According to the [place] [employer] : AGES 0-19: Desirable: < 170 mg/dL Borderline High: 170-199 mg/dL High Blood Cholesterol : >/= 200 mg/dL ADULTS: Desirable < 200 mg/dL Borderline High: 200-239 mg/dL High Blood Cholesterol : >/= 240 mg/dL [address] [place] [address] [place] Chemistry Chol/HDL 3 mg/dL 04/[address] [place] [address] [place] Chemistry Hemoglobin A1c 4.9 % 4.0 [...] and ordering Hemoglobin Electrophor esis. 0055A-3 [facility] Chemistry eAvg Glucose 94 mg/dL 04/19 0055A-3 75[facility] AP Specimens HPV Genotype 16 Negative 20 [...] and its performance characteris tics determined by [facility], Molecular Diagnostics Lab. Vaginal source has not been cleared or approved by the U. S. Food and Drug Administrat [facility]. This modified vaginal specimen HPV test [...] or methodology contact Molecular Department at or [phone]. 0109A-A BAM-FS H AP Specimens HPV Typing [...] and its performance characteris tics determined by [facility], Molecular Diagnostics Lab. Vaginal source has not been cleared or approved by the U. S. Food and Drug Administrat [facility]. This modified vaginal specimen HPV test [...] process or methodology contact Molecular Department at [phone] or [phone]. 6169A-A [facility] AP Specimens HPV Genotype 18 Negative [...] and its performance characteris tics determined by [facility], Molecular Diagnostics Lab. Vaginal source has not [...] or methodology contact Molecular Department at or [phone]. 0109A-A [facility] AP Specimens AP Cyto READING AIDE Patient: Jeana Matta Specimen #: [id number] Patholog ist: Accessio n: 4 [facility] DEPARTME NT OF PATHOLOG Y [address] [place] [address] [address] 447-[address] [place] [phone] Cytology Gynecolo gic Report Patient: Jeana Matta Specimen #: [id number] [facility] ID:: [id number] [address] [place] [address] r #: [id number] Taken: 4 11:14 /Age: [age] [...] Out Specimen # Interpre tation 03/20/20 19 [id number] Negative for Intraepi thlial Lesion or Malignan cy 03/14/20 14 [id number] 1252 NEGATIVE 03/05/20 11 [id number] NEGATIVE 01/23/20 10 [id number] 6582 NEGATIVE 11/13/19 09 [id number] 4860 NEGATIVE CPT Codes: A; 44646 The Pap test is a screenin g test for precurso rs of squamous cell carcinom a with an irreduci ble false negative rate of around 5%. It is not designed to detect glandula r lesions. A negative test does not ensure that no disease is present. 04/17 0055C-3 [facility] [place] Chemistry Sodium 138 mmol/L 136 - 145 10/11 N 0055A-3 [facility] [place] Chemistry Potassium Lvl TNP 3.5 - 5.1 10/11 Result Comment: Due to 2+ hemolysis Potassium level can not be performed. 0055A-3 75th [facility] [place] Chemistry Glucose Lvl 74 mg/dL 74 - 99 10/11 N 0055A-3 75th [facility] [place] Chemistry CO2 24 mmol/L 22 - 29 10/11 N 0055A-3 [facility] [place] Chemistry Chloride 106 mmol/L 98 - 107 10/11 N 0055A-3 [facility] [place] Chemistry Calcium 9.6 mg/dL 8.4 - 10.2 10/11 N 0055A-3 [facility] [place] Chemistry BUN/Creat Ratio 19 mg/dL 12 - 20 10/11 N 0055A-3 [facility] [place] Chemistry Creatinine Level 0.90 mg/dL 0.57 [...] Severe decrease <15 Kidney failure 5A-3 [facility] Chemistry Vitamin D 25 OH 73.2 ng/mL [...] findings. Testing performed by Carlos wayne. 5600A-U [facility] Chemistry TSH 1.850 mIU/L 0.270 - 4.200 04/29 N Interpretiv e Data: Recommend: TPO/Thyrope roxidase Antibody when TSH result is > 4.2 uIU/mL 5600A-U [facility] Chemistry Cholesterol Total 204 mg/dL 04/29 H Interpretiv e Data: According to the [place] Heart Association : AGES 0-19: Desirable: < 170 mg/dL Borderline High: 170-199 mg/dL High Blood Cholesterol : >/= 200 mg/dL ADULTS: Desirable < 200 mg/dL Borderline High: 200-239 mg/dL High Blood Cholesterol : >/= 240 mg/dL [facility] [employer] Chemistry Chol/HDL 3 mg/dL 04/[address] [place] [address] [place] Chemistry LDL 135 mg/dL 100 - 130 04/29 H Interpretiv e Data: AGES 0-19: Desirable: < 110 mg/dL Borderline High: 110-129 mg/dL High: >/= 130 mg/dL ADULTS: Desirable: <100 mg/dL Near/above optimal: 100-130 mg/dL Borderline High: 131-159 mg/dL High: 160-189 mg/dL Very High: 190 mg/dL [facility] [employer] Chemistry HDL Cholesterol 65 mg/dL 40 - 59 04/29 H Interpretiv e Data: HDL (HIGH DENSITY LIPOPROTEIN ): ADULTS: Low: < 40 mg/dL High: >/= 60 mg/dL AGES 0 -19: Low: < 40 mg/dL Borderline Low: 40 - 45 mg/dL Acceptable: > 45 mg/dL [address] [place] [address] [place] Chemistry Triglycerid es 44 mg/dL 7 [...] [facility] [place] Chemistry LDL/HDL 2 04/295A-3 [facility] [place] Vital Signs Combined list [...] Peripheral Pulse Rate 64 bpm 06/15/2023 14:57:00 3000X-Cu-V-375Th [facility] Mean Arterial Pressure, Calc 90 mm[Hg] 06/15/2023 14:57:00 3635D-Fs-V-3 [facility] Systolic Blood Pressure 123 mm[Hg] 06/15/2023 14:57:00 7178Z-Ne-P-375Th [facility] Diastolic Blood Pressure 73 mm[Hg] 06/15/2023 14:57:00 4296M-Ho-I-375Th [facility] Blood Pressure Manual Automatic 06/15/2023 14:57:00 2465T-Mp-S-375Th [facility] BP Site Right arm 06/15/2023 14:57:00 6130C -Af-C-375Th [facility] Respiratory Rate 14 br/min 06/15/2023 14:57:00 2884Y-Aw-M-375[facility] Blood Pressure Manual Automatic 05/24/2024 13:14:00 8446F-Sa-Y-375Th [facility] BP Site Left arm 05/24/2024 13:14:00 6130C -Af-C-375Th [facility] Mean Arterial Pressure, Calc 89 mm[Hg] 05/24/2024 13:14:00 3285E-Pm-E-3 75Th [facility] Peripheral Pulse Rate 69 bpm 05/24/2024 13:14:00 9751D-Pl-P-375Th [facility] Respiratory Rate 14 br/min 05/24/2024 13:14:00 1240I-Mi-N-375Th [facility] Systolic Blood Pressure 115 mm[Hg] 05/24/2024 13:14:00 2377D-La-N-375Th [facility] Diastolic Blood Pressure 76 mm[Hg] 05/24/2024 13:14:00 4807N-Rf-J-375Th [facility] Peripheral Pulse Rate 66 bpm 04/13/2023 [...] [facility] Respiratory Rate 16 br/min 09/27/2024 16:13:00 7942H-Xa-E-375Th [facility] Temperature Oral 36.8 Darshana 09/27/2024 16:13:00 6932R-Pf-I-375Th [facility] Systolic Blood Pressure 116 1 09/27/2024 16:13:00 6140B-Sa-N-375Th [facility] Diastolic Blood Pressure 76 mm[Hg] 09/27/2024 16:13:00 6451C-Gt-A-375Th [facility] Mean Arterial Pressure, Calc 89 mm[Hg] 09/27/2024 16:13:00 4014T-Nc-Z-3 75Th [facility] Peripheral Pulse Rate 75 bpm 09/27/2024 16:13:00 3043G-Pw-P-375Th [facility] Systolic Blood Pressure 102 mm[Hg] 10/03/2023 16:21:00 1548N-Gt-V-375Th [facility] Diastolic Blood Pressure 60 mm[Hg] 10/03/2023 16:21:00 8178P-Df-L-375Th [facility] Mean Arterial Pressure, Calc 74 mm[Hg] 10/03/2023 16:21:00 8507I-Gs-Z-3 75Th [facility] Peripheral Pulse Rate 65 bpm 10/03/2023 16:21:00 7386F-Ti-G-375Th [facility] Respiratory Rate 16 br/min 10/03/2023 16:21:00 0863Z-Dp-F-375Th [facility] BP Site Right arm 10/03/2023 16:21:00 6130C -Af-C-375Th [facility] Blood Pressure Manual Automatic 10/03/2023 16:21:00 1085Q-Ym-U-375Th [facility] Encounters Combined list of: 1) Encounters [...] Source 6130C-Af- C-375Th [facility] aminta Between Visit [id number] 09/09 Discharge Disposition: Home or Self Care 6130C-A f-C-375 Th [facility] [place] 6130C-Af- C-375Th [facility] am[facility] Clinic [id number] Encount er for general adult medical examina tion without abnorma l finding s NATHANSEIG RIST 09/27 Discharge Disposition: Home or Self Care 6130C-A f-C-375 [facility] [place] 5C-375 [facility] [id number] VARGHESE ROBIN 10/02 Discharge Disposition: Home or Self Care -3 75th [facility] [place] 5C-375 th [facility] [id number] Encount er for immuniz aravind ROBIN 10/23 Discharge Disposition: Home or Self Care -3 [facility] 5C375 [facility] [id number] Encount er for immuniz aravind ROBIN 11/06 Discharge Disposition: Home or Self Care - [facility] Procedures Combined list of: 1) Procedures from Department of Veterans Affairs facilities going back up to thelast 18 months, not all VA non-surgical procedures are included; 2) All procedures from the Department of Defense facilities. Procedure Procedure Type Code Date Perfomer Comments Sourc e excision [facility] 03/22/2023 005-37 [facility]th [facility]um [facility] 01/29/2022 005-[facility] 12/20/2021 005-37 [facility] 08/22/2020 00 C-[facility] right br bx 08/22/2020 B9 5C-375 [facility] Myomectomy, excision of fibroid tumor(s) of uterus, 1 to 4 intramural myoma(s) with total weight of 250 g or le and/or removal of surface myomas; vaginal approach Myomectomy, excision of fibroid tumor(s) of uterus, 1 to 4 intramural myoma(s) with total weight of 250 grams or less and/or removal of surface myomas; vaginal approach [id number] 08/22/2001 0055C-375th Roxy LEEP 08/22/1992 ALICIA 2-3 0055C-375 [facility] Social History Combined list of available smoking, [...] accination given Comment: Ordered: Unlisted E[employer]M Service 98382; 11/06/2024 13:03:00 CDT, Vaccination given b y VARGHESE GRIFFITH MD Other status: typhoid vaccine, inactivated; 0.5 mL, IntraMuscular, Injection, Vaccine, First Dose: 11/06/2024 13:02:00 CDT, 11/06/2024 13:02:00 CDT ( Completed) by VARGHESE GRIFFITH MD ? I madm Prq Id Subq/Im Njxs 1 Vaccine [id number]; 11/06/2024 13:03:00 CDT, Vaccination given (Completed) by [...] IntraMuscular, Suspension-Injection, Vaccine, First Dose: 10/23/2024 09:53:00 ECOLOGICAL RISK ASSESSOR, 10/23/2024 09:53:00 ECOLOGICAL RISK ASSESSOR (Completed) by VARGHESE GRIFFITH MD Office Visit Level 1 Est 74996; 10/23/2024 09:53:00 ECOLOGICAL RISK ASSESSOR, Vaccination given (Completed) by VARGHESE GRIFFITH MD Imadm Prq Id Subq/Im Njxs 1 Vaccine 94436; 10/23/2024 09:53:00 ECOLOGICAL RISK ASSESSOR, Vaccination given (Completed) by VARGHESE GRIFFITH MD [...] IntraMuscular, Suspension-Injection, Vaccine, First Dose: 10/02/2024 10:43:00 ECOLOGICAL RISK ASSESSOR, 10/02/2024 10:43:00 ECOLOGICAL RISK ASSESSOR by VARGHESE GRIFFITH MD Other status: Imadm Prq Id Subq/Im Njxs 1 Vaccine 18207; 10/02/2024 10:43:00 ECOLOGICAL RISK ASSESSOR, Encounter for immunization (Completed) by VARGHESE GRIFFITH MD Diagnosis: Vaccination given Comment: Ordered: Prevnar 20; 0.5 mL, IntraMuscular, Suspension-Injection, Vaccine, First Dose: 10/02/2024 10:43:00 ECOLOGICAL RISK ASSESSOR, 10/02/2024 10:43:00 ECOLOGICAL RISK ASSESSOR by VARGHESE GRIFFITH MD End of Orders Extracted from:Title: [facility] - Annual Wellness Visit Author: EMILEE LANE [...] Archie kelly. //SIGNED// Capt Emilee Lane DO Nuclear Weapons Custodian Physician, PGY-1 [facility], [facility] [place] DOEB Extracted from:Title: [facility] - Lab/Imaging Results Author: YEVGENIY LOU, Date: [...] discussed -RTC as needed Yevgeniy Lou DO Nuclear Weapons Custodian, PGY-3 [place] RODRIGUEZ Addendum by NYDIA DASH [...] followed by the ordering provider. Maj Santa, [facility], Staff Physician Extracted from:Title: [facility] - Foot Pain Author: YEVGENIY LOU, Date: [...] Request 2.0 - DoD Yevgeniy Lou DO Nuclear Weapons Custodian, PGY-3 [place] RODRIGUEZ Addendum by XOCHITL MELO [...] provider. Maj Trevor () Family Medicine Physician [place] [facility] [place], [place] Extracted from:Title: READING AIDE/WWE, pap; osteopenia Author: MAHNAZ MARCUS NP Date: [...] screening vs repeat 5yrs Ordered: AP Cytology READING AIDE HPV High Risk (16/18/Other) 3. H ormone [...] were provided to the patient. Mahnaz Marcus [facility] Extracted from:Title: FM 63 yo well Author: [...] 1 patch(es) TransDermal every 72 hr, Pharmacy: [facility] [Not filled] 3. N jessica pain [...] Panel Referral Request 2.0 Nitesh Henry MD Nuclear Weapons Custodian, PGY-3 [place] Addendum by JESSICA DUMONT MD on October 04, 2023 08:16:11 ECOLOGICAL RISK ASSESSOR I certify that I was present for [...] Closing Encounter for administrative completion. CPT Code 92629 w/0004A Extracted from:Title: Office Clinic Note - [...] Nydia Dash DO Family Medicine Faculty Physician [address] [place] [address], [facility] [place] Extracted from:Title: WWE [...] desires Mahnaz [facility] 12/06/2024 [id number] Roxy Assessment and Plan Extracted from:Title : Imm Typhoid Travel Author: ARCELIA FRANCO Date: 11/06/24 1. V accination given hepatitis A adult vaccine: 1440 unit(s) (10/23/24 09:54:00) typhoid vaccine, parenteral: 0.5 mL (11/06/24 13:11:00) D iagnosis: 1 . V accination given Comment: Ordered: Unlisted E[employer]M Service 24449; 11/06/2024 13:03:00 CDT, Vaccination given b y VARGHESE GRIFFITH MD Other status: typhoid vaccine, inactivated; 0.5 mL, IntraMuscular, Injection, Vaccine, First Dose: 11/06/2024 13:02:00 CDT, 11/06/2024 13:02:00 CDT ( Completed) by VARGHESE GRIFFITH MD ? I mad Prq Id Subq/Im Njxs 1 Vaccine [id number]; 11/06/2024 13:03:00 CDT, Vaccination given (Completed) by [...] IntraMuscular, Suspension-Injection, Vaccine, First Dose: 10/23/2024 09:53:00 ECOLOGICAL RISK ASSESSOR, 10/23/2024 09:53:00 ECOLOGICAL RISK ASSESSOR (Completed) by VARGHESE GRIFFITH MD Office Visit Level 1 Est 83797; 10/23/2024 09:53:00 ECOLOGICAL RISK ASSESSOR, Vaccination given (Completed) by VARGHESE GRIFFITH MD Imadm Prq Id Subq/Im Njxs 1 Vaccine [id number]; 10/23/2024 09:53:00 ECOLOGICAL RISK ASSESSOR, Vaccination given (Completed) by VARGHESE GRIFFITH MD [...] IntraMuscular, Suspension-Injection, Vaccine, First Dose: 10/02/2024 10:43:00 ECOLOGICAL RISK ASSESSOR, 10/02/2024 10:43:00 ECOLOGICAL RISK ASSESSOR by VARGHESE GRIFFITH MD Other status: Imadm Prq Id Subq/Im Njxs 1 Vaccine 80443; 10/02/2024 10:43:00 ECOLOGICAL RISK ASSESSOR, Encounter for immunization (Completed) by VARGHESE GRIFFITH MD Diagnosis: Vaccination given Comment: Ordered: Prevnar 20; 0.5 mL, IntraMuscular, Suspension-Injection, Vaccine, First Dose: 10/02/2024 10:43:00 ECOLOGICAL RISK ASSESSOR, 10/02/2024 10:43:00 ECOLOGICAL RISK ASSESSOR by VARGHESE GRIFFITH MD End of Orders Extracted from:Title: [facility] - Annual Wellness Visit Author: EMILEE LANE [...] w ith a ttending physician, Dr. Archie eklly. //SIGNED// Capt Emilee Lane DO Nuclear Weapons Custodian Physician, PGY-1 [employer], [facility] [place] Extracted from:Title: [facility] - Lab/Imaging Results Author: YEVGENIY LOU DO [...] discussed -RTC as needed Yevgeniy Lou DO Nuclear Weapons Custodian, PGY-3 [place] Addendum by NYDIA DASH [...] followed by the ordering provider. Maj Santa, [facility], Staff Physician Extracted from:Title: [facility] - Foot Pain Author: YEVGENIY LOU DO [...] Request 2.0 - DoD Yevgeniy Lou DO Nuclear Weapons Custodian, PGY-3 [place] Addendum by XOCHITL MELO [...] provider. Maj Kushal Murray) Family Medicine Physician [facility] ARNIE Howe Extracted from:Title: READING AIDE/WWE, pap; osteopenia Author: MAHNAZ MARCUS NP Date: [...] screening vs repeat 5yrs Ordered: AP Cytology READING AIDE HPV High Risk (16/18/Other) 3. H ormone replacement therapy risks, side effects HT reviewed; has tried 2x/wk and increases flushing; OK to con't 3x/wk Ordered: conjugated estrogens-medroxyprogesterone(Pre mpro 0.3 mg-1.5 mg oral tablet), 1 tab(s), Oral, every other day, # 56 tab(s), 4 total refill(s), Maintenance, 1 tab(s) Oral every other day, Pharmacy: [facility] [Federal Rx: #56 last filled 04/17/24] 4. A ge related osteopenia stressed ca, vit d, wt bearing exercise; will stop boniva and repeat dexa and vit d next yr Ordered: calcium carbonate(calcium (as carbonate) 500 mg oral tablet), See Instructions, take 1 tab bid, # 180 tab(s), 3 total refill(s), Maintenance, take 1 tab bid, Pharmacy: [facility] [Federal Rx: #180 last filled 04/17/24] 5. O ther specified abnormal findings of blood chemistry low fat/low chol diet, no more than 25% total calories from fat, Ordered: Hemoglobin A1c Lipid Panel Pt questions addressed and written discharge instructions were provided to the patient. Mahnaz Marcus [facility] STOCK CONTROLLER [facility] Extracted from:Title: FM 63 yo well Author: [...] 1 patch(es) TransDermal every 72 hr, Pharmacy: [facility] [Not filled] 3. N jessica pain [...] Panel Referral Request 2.0 Nitesh Henry MD Nuclear Weapons Custodian, PGY-3 [place] Addendum by JESSICA DUMONT MD on October 04, 2023 08:16:11 ECOLOGICAL RISK ASSESSOR I certify that I was present for [...] Closing Encounter for administrative completion. CPT Code 28499 w/0004A Extracted from:Title: Office Clinic Note - [...] DO Family Medicine Faculty Physician [facility], [facility] [place] Extracted from:Title: WWE Author: MAHNAZ [...] Maintenance, 1 tab(s) Oral every month, Pharmacy: [facility] [Not filled] calcium carbonate(calcium (as carbonate) 600 mg oral tablet), 1 tab(s), Oral, BID, # 180 tab(s), 3 total refill(s), Maintenance, 1 tab(s) Oral BID, Pharmacy: [facility] [Not filled] Vitamin D 25 Hydroxy Level 3. H ormone replacement therapy risks, side effects HT reviewed; discussed risks, lowest dose to manage symptoms; OK to increase to 3-4days /wk if that controls symptoms; Ordered: conjugated estrogens-medroxyprogesterone(Pre mpro 0.3 mg-1.5 mg oral tablet), 1 tab(s), Oral, Daily, # 90 tab(s), 3 total refill(s), Maintenance, 1 tab(s) Oral Daily, Pharmacy: [facility] [Not filled] 4. F lushing discussed gabapentin may help flushing but also discussed increasing # of days taking prempro 5. D ysplasia of cervix pap/HPV due 01/13 with pervious hx ALICIA 2-3 with LEEP 6. O ther specified counseling discussed RSV vaccine and covid booster; f/u with immunizations if desires Mahnaz Heller [facility] 12/06/2024 [id number] [facility] and Plan Extracted from:Title : Imm Typhoid Travel Author: ARCELIA FRANCO Date: 11/06/24 1. V accination given hepatitis A adult vaccine: 1440 unit(s) (10/23/24 09:54:00) typhoid vaccine, parenteral: 0.5 mL (11/06/24 13:11:00) D iagnosis: 1 . V accination given Comment: Ordered: Unlisted E&M Service [id number]; 11/06/2024 13:03:00 CDT, Vaccination given VARGHESE Ham MD Other status: typhoid vaccine, inactivated; 0.5 mL, IntraMuscular, Injection, Vaccine, First Dose: 11/06/2024 13:02:00 CDT, 11/06/2024 13:02:00 CDT ( Completed) by VARGHESE GRIFFITH MD ? I mad Prq Id Subq/Im Njxs 1 Vaccine [id number]; 11/06/2024 13:03:00 CDT, Vaccination given (Completed) by [...] IntraMuscular, Suspension-Injection, Vaccine, First Dose: 10/23/2024 09:53:00 ECOLOGICAL RISK ASSESSOR, 10/23/2024 09:53:00 ECOLOGICAL RISK ASSESSOR (Completed) by VARGHESE GRIFFITH MD Office Visit Level 1 Est 67416; 10/23/2024 09:53:00 ECOLOGICAL RISK ASSESSOR, Vaccination given (Completed) by VARGHESE GRIFFITH MD Imadm Prq Id Subq/Im Njxs 1 Vaccine [id number]; 10/23/2024 09:53:00 ECOLOGICAL RISK ASSESSOR, Vaccination given (Completed) by VARGHESE GRIFFITH MD [...] IntraMuscular, Suspension-Injection, Vaccine, First Dose: 10/02/2024 10:43:00 ECOLOGICAL RISK ASSESSOR, 10/02/2024 10:43:00 ECOLOGICAL RISK ASSESSOR by VARGHESE GRIFFITH MD Other status: Imadm Prq Id Subq/Im Njxs 1 Vaccine 34217; 10/02/2024 10:43:00 ECOLOGICAL RISK ASSESSOR, Encounter for immunization (Completed) by VRAGHESE GRIFFITH MD Diagnosis: Vaccination given Comment: Ordered: Prevnar 20; 0.5 mL, IntraMuscular, Suspension-Injection, Vaccine, First Dose: 10/02/2024 10:43:00 ECOLOGICAL RISK ASSESSOR, 10/02/2024 10:43:00 ECOLOGICAL RISK ASSESSOR by VARGHESE GRIFFITH MD End of Orders Extracted from:Title: [facility] - Annual Wellness Visit Author: EMILEE LANE [...] Archie kelly. //SIGNED// Capt Emilee Lane DO Nuclear Weapons Custodian Physician, PGY-[address] [place] [address], [facility] [place] [employer] Extracted from:Title: [facility] - Lab/Imaging Results Author: YEVGENIY LOU DO [...] discussed -RTC as needed Yevgeniy Lou DO Nuclear Weapons Custodian, PGY-3 [place] Addendum by NYDIA DASH [...] followed by the ordering provider. Maj Santa, [facility], Staff Physician Extracted from:Title: [facility] - Foot Pain Author: YEVGENIY LOU DO [...] Request 2.0 - DoD Yevgeniy Lou DO Nuclear Weapons Custodian, PGY-3 [place] Addendum by XOCHITL MELO [...] provider. Maj Kushal Murray) Family Medicine Physician [facility] [place], [place] Extracted from:Title: READING AIDE/WWE, pap; osteopenia Author: MAHNAZ MARCUS NP Date: [...] serving sizes can be found at h ttps://www.NetSpendplate.gov/.&#1 60; T hese amounts are appropriate for individuals who get less than 30 minutes per day of moderate physical activity, beyond normal daily activities. Those who are more physically active may be able to consume more while staying within calorie needs. 2. E ncounter for screening for malignant neoplasm of cervix can consider no more screening vs repeat 5yrs Ordered: AP Cytology READING AIDE HPV High Risk (16/18/Other) 3. H ormone replacement therapy risks, side effects HT reviewed; has tried 2x/wk and increases flushing; OK to con't 3x/wk Ordered: conjugated estrogens-medroxyprogesterone(Pre mpro 0.3 mg-1.5 mg oral tablet), 1 tab(s), Oral, every other day, # 56 tab(s), 4 total refill(s), Maintenance, 1 tab(s) Oral every other day, Pharmacy: [facility] [Federal Rx: #56 last filled 04/17/24] 4. A ge related osteopenia stressed ca, vit d, wt bearing exercise; will stop boniva and repeat dexa and vit d next yr Ordered: calcium carbonate(calcium (as carbonate) 500 mg oral tablet), See Instructions, take 1 tab bid, # 180 tab(s), 3 total refill(s), Maintenance, take 1 tab bid, Pharmacy: [facility] [Federal Rx: #180 last filled 04/17/24] 5. O ther specified abnormal findings of blood chemistry low fat/low chol diet, no more than 25% total calories from fat, Ordered: Hemoglobin A1c Lipid Panel Pt questions addressed and written discharge instructions were provided to the patient. Mahnaz Marcus [facility] Extracted from:Title: FM 63 yo well Author: NITESH HENRY MD Date: 10/03/23 1. [facility] adult Preventative Medicine / HCM visit [...] 1 patch(es) TransDermal every 72 hr, Pharmacy: [facility] [Not filled] 3. N jessica pain [...] Panel Referral Request 2.0 Nitesh Henry MD Nuclear Weapons Custodian, PGY-3 [place] Addendum by JESSICA DUMONT MD on October 04, 2023 08:16:11 ECOLOGICAL RISK ASSESSOR I certify that I was present for [...] Closing Encounter for administrative completion. CPT Code 06415 w/0004A Extracted from:Title: Office Clinic Note - [...] DO Family Medicine Faculty Physician [facility], [facility] [place] Extracted from:Title: WWE [...] serving sizes can be found at h ttps://www.BERDmyplate.gov/.&#1 60; T hese amounts are appropriate for [...] refill(s), Maintenance, 1 tab(s) Oral Daily, Pharmacy: [facility] [Not filled] 4. F lushing discussed gabapentin may help flushing but also discussed increasing # of days taking prempro 5. D ysplasia of cervix pap/HPV due 01/13 with pervious hx ALICIA 2-3 with LEEP 6. O ther specified counseling discussed RSV vaccine and covid booster; f/u with immunizations if desires Mahnaz [facility] STOCK CONTROLLER [facility] 12/06/2024 [id number] [facility] Functional Status Combined list of recent functional and cognitive assessments recorded at [employer] of [employer] and [employer] (VA).VA Functional [place] Measurement (FIM) Scale: 1 = Total Assistance (Subject = 0% +), 2 = Maximal Assistance (Subject = 25% +), 3 = Moderate Assistance (Subject = 50% +), 4 = Minimal Assistance (Subject = 75% +), 5 = Supervision, 6 = Modified [place] (Device), 7 = Complete [place] (Timely, Safely). Assessment Date/Time Source Assessment Type Assessment Skill Assessment Score Assessment Details No data available for this section
--- OUTSIDE RECORDS SUMMARY | 2024-12-06 05:08 | XMS_ITS | Clinical Summary ---
Author Organization [facility] Address [address] [place] [address] Care Team Providers Care Workforce Planning Analyst Name Role Phone Demetria Mckeon MD Primary Care Provider [phone] Allergies Active Allergy Reactions Criticality Noted Date Comments Latex Rash Medium 08/17/2021 Medications cycloSPORINE (Restasis) 0.05 % ophthalmic emulsion Administer 1 drop into both eyes every 12 (twelve) hours as needed Active Calcium 600 600 mg calcium (1,500 mg) tablet Take 500 mg by mouth 2 (two) times a day 0 Active cholecalciferol (VITAMIN D-3) 2000 unit tablet Take 1 tablet (2,000 Units total) by mouth every morning 0 Active Prempro 0.3-1.5 mg per tablet Take 1 tablet by mouth every morning 0 Active biotin 1 mg tablet Take 2.5 tablets (2,500 mcg total) by mouth every other day Active ibandronate (BONIVA) 150 mg tabletIndications :Post-Menopausal Osteoporosis Take 1 tablet (150 mg total) by mouth every 30 (thirty) days 2 Active Fish OiL 340-1,000 mg capsule Take 1 capsule by mouth every morning 500-1250 mg 2 Active CertaVite Senior 0.4 mg-300 mcg- 250 mcg tablet 2 Active fx-dgp-heiyb acid-lutein 400-250 mcg tablet,chewable Take by mouth Active gabapentin (NEURONTIN) 300 mg capsule Take 2 capsules (600 mg total) by mouth 2 (two) times a day AND 3 capsules (900 mg total) nightly. 630 capsule 3 4 04/19/20 25 Active Active Problems Problem Noted Date Diagnosed Date Cervical mass 01/14/2022 Internal hemorrhoids 07/08/2020 Overview (07/08/2020): Added automatically from request for surgery [id number] Encounter for screening colonoscopy 05/15/2020 Assessment & Plan (05/15/2020 10:34 AM CDT): Last colonoscopy 10 years ago done at [place]. This was normal. No family hx of colon cancer. No complaints. All questions regarding procedure answered. Will go ahead and schedule screening colonoscopy. BMI 20.0-20.9, adult 05/15/2020 Acquired hallux valgus 01/12/2017 Osteoarthritis of ankle or foot 01/12/2017 Metatarsalgia 01/12/2017 Spondylolisthesis 09/29/2016 Immunizations Immunization Administration Dates Next Due Pfizer SARS-CoV-2 Monovalent Vaccination (12+ Yrs) PURPLE 08/30/2020,08/09/2020 Surgical History Surgery Date Site/Laterality Comments LIPOSUCTION 08/22/2007 - 08/21/2008 abdomen COLONOSCOPY 12/20/2009 - 01/19/2010 COLONOSCOPY 07/01/2020 CERVICAL BIOPSY W/ LOOP ELECTRODE EXCISION 08/22/1992 - 08/21/1993 LASIK 08/22/1999 - 08/21/2000 Bilateral MYOMECTOMY 04/18/2002 FOOT SURGERY 08/22/2020 - 08/21/2021 Right FACIAL COSMETIC SURGERY 10/06/2021 SKIN CANCER EXCISION 01/13/2022 FACIAL COSMETIC SURGERY 09/22/2021 - 10/19/2021 neck lift with eye lids BREAST BIOPSY 10/17/2020 Right Medical History Medical History Date Comments Arthritis Skin cancer 01/13/2022 Covid-19 08/19/2021 Motion sickness Family History Medical History Relation Name Comments Abdominal Aortic Aneurysm Brother Cancer Father Family history of malignant neoplasm - (Added by TW Conv) Diabetes Father Gout Father Family history of gout - (Added by TW Conv) Heart disease Father Family history of cardiac disorder - (Added by TW Conv) Leukemia Father Lung cancer Father's Brother Heart attack Maternal Grandfather Heart attack Maternal Grandmother Blood Clot Mother Blood clot in v ein - (Added by TW Conv) Deep vein thrombosis Mother Diabetes Mother Lung disease Mother Family history of lung disease - (Added by TW Conv) Stroke Mother Relation Name Status Comments Brother Alive Father Father's Brother Maternal Grandfather Maternal Grandmother Mother Alive Social History Tobacco Use Types Packs/Day Years Used Date Smoking Tobacco: Never Smokeless Tobacco: Never Tobacco Cessation:Counseling Given: Not Answered AUDIT-C Answer Date Recorded Q1: How often do you have a drink containing alc ohol? Never 01/29/2022 Q2: How many drinks containi ng alcohol do you have on a typical day when you are drinking? 1 or 2 01/29/2022 Q3: How often do you have six or more drinks on one occasion? Never 01/29/2022 Comments No Sex and Gender Information Value Date Recorded Sex Assigned at Not on file Legal Sex Female 2:50 AM RIVER DRIVER Gender Identity Female 07/29/2021 2:22 PM RIVER DRIVER Sexual Orientation Straight 07/29/2021 2: 22 PM RIVER DRIVER Obstetrics History Para Term AB IAB SAB Ectopic Multiple Livin g Live Births 0 0 0 0 0 0 0 0 0 0 0 Last Filed Vital Signs Vital Sign Reading Time Taken Comments Blood Pressure 113/71 04/19/2024 9:52 AM CDT Pulse 65 04/19/2024 9:52 AM CDT Temperature 37.3 C (99.2 F) 02/15/2022 3:30 PM CDT Respiratory Rate 16 02/15/2022 3:30 PM CDT Oxygen Saturation 99% 02/15/2022 3:30 PM CDT Inhaled Oxygen Concentration - - Weight 55.3 kg (122 lb) 04/19/2024 9:52 AM CDT Height 168.9 cm (5' 6.5 ) 04/19/2024 9:52 AM CDT Body Mass Index 19.4 04/19/2024 9:52 AM CDT Plan of Treatment Health Maintenance Due Date Last Done Comments Depression Screening 1960 Hepatitis C Screening 1960 Pneumococcal vaccine 65+ (1 of 1 - PCV) 2009 Cervical Cancer Screening 01/12/2023 01/12/2022 Fall Risk Assessment 01/29/2023 01/29/2022, 08/10/20 21 Well Visit 65+ 2024 Covid-19 Vaccine (3 - 2023-2 5 season) 2024 08/30/2020, 08/09/2020 Osteoporosis Screening-Bone Density Scan 10/07/2024 10/07/2022 Breast Cancer Screening-Mammogram 10/11/2024 10/11/2023, 10/11/2023, 10/07/2022, Additional history exists DTaP/Tdap/Td Vaccine (3 - Td or Tdap) 11/07/2028 11/07/2018, 10/28/2008 Colon Cancer Screening-Colonoscopy 07/01/20302019 Hepatitis B Screening Completed 10/28/2008 , 04/03/2001, 03/03/2001 Zoster Vaccine Completed 01/08/2020, 09/28/2019 Influenza Vaccine Completed 06/01/2024 Procedures Procedure Name Priority Date/Time Associated Diagnosis Comments PAP AND HIGH RISK HPV, REFLEX TO GENOTYPING Routine 01/12/2022 10:26 AM CDT COLONOSCOPY 07/01/2020 7:58 AM RIVER DRIVER from Last 3 Months or Most Recently Relevant to Health Maintenance Results * Pap and High Risk HPV, reflex to Genotyping (01/12/2022 10:26 AM CDT) Pap test 01/12/2022 10:2 6 AM CDT 01/12/2022 11:28 AM CDT Narrative 01/19/2022 11:30 AM CDT EPIC results best viewed via link to PDF [facility] [place] [address] Note to Patients: This report may contain a detailed description of human tissue sent by a health care provider to the laboratory for pathologic evaluation. The content of this report is essential for diagnosis and may provide important critical findings. This information may be unfamiliar to patients to review without a medical professional present. It is advised that the patient review this report in the presence of a health care provider who can answer questions and explain the details. CYTOPATHOLOGY REPORT FINAL Patient Name: ACHENBJEANA ORTIZ Gender: F : 1960 (Age: 61) Address: [address] [place] [id number] Hospital #: [id number] Service: INSURANCE ACCOUNT SPECIALIST Location: Patient Type: [facility] SPECIMEN Taken: 01/12/2022 Received: 01/12/2022 Accessioned: 01/13/2022 Reported: 01/19/2022 Physician(s): Christine Giordano M.D. FINAL INTERPRETATION SOURCE OF SPECIMEN: Liquid based Thin Prep pap with HPV STATEMENT OF ADEQUACY: - Satisfactory for evaluation - No endocervical/transformation zone sample present in a post menopausal patient GENERAL CATEGORY: - Negative for squamous intraepithelial lesion or malignancy DESCRIPTION: - Atrophy Comments HPV Result: NEGATIVE for high risk types of Human Papilloma Virus (HPV) RNA This probe detects the presence of HPV types: 16, 18, 31, 33, 35, 39, 45, 51, 52, 56, 58, 59, 66 and 68. This HPV test was performed at [facility] in [place], [place] utilizing the Gen-Probe Aptima assay. ml/01/19/2022 11:30 JOSS Soriano(ASCP) Report Electronically Reviewed and Signed Out By JOSS Soriano(ASCP) 01/19/2022 11:30:51 Cervicovaginal Cytology (Pap Test) Disclaimer: The Pap test is a screening test used to detect cervical cancer and its precursors; it is not a diagnostic procedure. False negative and false positive results do occur. Pap test results should be interpreted in the context of pertinent clinical information and biopsy results as indicated. Gross Description A. Liquid based Thin Prep pap with HPV: Cervical/vaginal - Screening ThinPrep Clinical Diagnosis and History Last Menstrual Period: Over 10 years ago The patient is a 61 year old woman with history of endocervical mass. The HPV test was performed by [facility], [address] [place] [address]. Report Images and scanned documents, if included only viewable in PDF version The performance characteristics of some immunohistochemical stains, in-situ hybridization and fluorescence in-situ hybridization tests and immunophenotyping by flow cytometry cited in this report (if any) were determined by the Surgical Pathology Department at [facility] as part of an ongoing quality assurance/r&d lab technician program and in compliance with federally mandated regulations drawn from the Clinical Laboratory Improvement Act of 1988 (CLIA '88). Some of these tests rely on the use of analyte specific reagents and are subject to specific labeling requirements by the US Food and Drug Administration. Such diagnostic tests may only be performed in a facility that is certified by the Department of Health and Human Services as a high complexity laboratory under CLIA '88. The FDA has determined that such clearance or approval is not necessary. This test is used for clinical purposes. It should not be regarded as investigational or for research. Nevertheless, federal rules concerning the medical use of analyte specific reagents require that the following disclaimer be attached to the report: This test was developed and its performance characteristics determined by the Surgical Pathology Department of [facility]. It has not been cleared or approved by the U. S. Food and Drug Administration. [facility] Lakhwinder Giordano MD LAB CYTOLOGY ORDERABLES Final Result * COLONOSCOPY (07/01/2020 7:58 AM RIVER DRIVER) Anatomical Region Laterality Modality Other Narrative Procedure Note Roney Perez MD - 07/01/2020 7:58 AM CST [facility] Patient Name: Jeana Farfan Procedure Date: 07/01/2020 7:58 AM Date of : 1960 Admit Type: Outpatient Age: 60 Gender: Female Attending MD: Roney Perez M.D. Room: [facility] ENDOSCOPY ROOM 1 Note Status: Finalized Patient Profile: This is a 60 year old female. No family history of colon cancer. Procedure: Colonoscopy Indications: Screening for colorectal malignant neoplasm, Last colonoscopy: December 2009 Referring MD: Marky Villegas Providers: Roney Perez M.D. Impression: - One 6 mm polyp in the cecum, removed with a jumbo cold forceps. Resected and retrieved. - One 3 mm polyp in the rectum, removed with a jumbo cold forceps. Resected and retrieved. - Internal hemorrhoids. Recommendation: - Await pathology results. - Repeat colonoscopy in 5 years for screeningpurposes. - Continue present medications. Medicines: Monitored Anesthesia Care Complications: No immediate complications. Estimated Blood Loss: Estimated blood loss: none. Procedure: Pre-Anesthesia Assessment: - Prior to the procedure, a History and Physical was performed, and patient medications and allergieswere reviewed. The patient's tolerance of previous anesthesia was also reviewed. The risks and benefitsof the procedure and the sedation options and riskswere discussed with the patient. All questions were answered, and informed consent was obtained. Prior Anticoagulants: The patient has taken no previous anticoagulant or antiplatelet agents. ASA Grade Assessment: II - A patient with mild systemicdisease. After reviewing the risks and benefits, the patientwas deemed in satisfactory condition to undergo the procedure. The benefits, risks and alternatives of theprocedure and sedation were discussed and informed consent was obtained. All questions were answered. Please referto the signed informed consent document in the medical record. The scope was passed under direct vision.The Pediatric Colonoscope PCF-H190L [id number] was introduced through the anus and advanced to the the cecum, identified by appendiceal orifice andileocecal valve. The bowel preparation used was Miralax. The bowel preparation used was bisacodyl tablets. Bowel prep was administered using a split dose. Thequality of the bowel preparation was good. Findings: The perianal and digital rectal examinations were normal. The appendiceal orifice appeared normal. A 6 mm polyp was found in the cecum. The polyp was flat. The polypwas removed with a jumbo cold forceps. Resection and retrieval werecomplete. The ascending colon appeared normal. The transverse colon appeared normal. The descending colon appeared normal. The sigmoid colonappeared normal. A 3 mm polyp was found in the rectum. The polyp was sessile. Thepolyp was removed with a jumbo cold forceps. Resection and retrieval were complete. Internal hemorrhoids were found during retroflexion. The hemorrhoids were medium-sized. Electronically signed by Roney Perez M.D. Roney Perez M.D. 07/01/2020 9:41:13 AM Number of Addenda: 0 Note Initiated On: 07/01/2020 7:58 AM Procedure Code(s): --- Professional --- 12698, Colonoscopy, flexible; with biopsy, single or multiple Diagnosis Code(s): --- Professional --- Z12.11, Encounter for screening for malignant neoplasm of colon K64.8, Other hemorrhoids D12.0, Benign neoplasm of cecum K62.1, Rectal polyp CPT copyright 2017 [employer] [place] [employer]. All rights reserved. The codes documented in this report are preliminary and upon coder operator reviewmay be revised to meet current compliance requirements. Recognized by the [employer] [place] [employer] Gastrointestinal Endoscopy for promoting quality in endoscopy Roney Perez MD ENDOSCOPY PROCEDURES Final Result from Last 3 Months or Most Recently Relevant to Health Maintenance [place] [address] [facility] CLAIMS MEDICARE [facility] [place] [address] [facility] CLAIMS Advance Directives For more information, please contact: [phone] * Full Code (Latest Code Status on File) Date Activated Date Inactivated Comments 01/29/2022 3:57 PM 01/29/2022 8:23 PM * Full Code Date Activated Date Inactivated Comments 09/24/2020 9:24 AM 09/24/2020 3:01 PM * Full Code Date Activated Date Inactivated Comments 09/24/2020 9:24 AM 09/24/2020 9:24 AM * Full Code Date Activated Date Inactivated Comments 07/01/2020 7:56 AM 07/01/2020 2:21 PM * Full Code Date Activated Date Inactivated Comments 07/01/2020 7:56 AM 07/01/2020 7:56 AM Care Teams Workforce Planning Analyst Relationship Specialty Start Date End Date Demetria Mckeon MD [address] [address] PCP - General Family Medicine 08/10/21
--- OUTSIDE RECORDS SUMMARY | 2024-12-06 05:08 | XMS_ITS | Referral Summary ---
Author Organization [facility] Address [address] [place] [address] Care Team Providers Care Medicare Compliance Auditor Name Role Phone Demetria Mckeon MD Primary Care Provider [phone] Allergies Active Allergy Reactions Criticality Noted Date [...] mg-300 mcg- 250 mcg tablet 2 Active bw-gji-opqbt acid-lutein 400-250 mcg tablet,chewable Take by mouth Active gabapentin (NEURONTIN) 300 mg capsule Take 2 capsules (600 mg total) by mouth 2 (two) times a day AND 3 capsules (900 mg total) nightly. 630 capsule 3 4 04/19/20 25 Active Active Problems Problem Noted Date Diagnosed Date Cervical mass 01/14/2022 Internal hemorrhoids 07/08/2020 Overview (07/08/2020): Added automatically from request for surgery [id number] Encounter for screening colonoscopy 05/15/2020 Assessment & Plan (05/15/2020 10:34 AM CDT): Last colonoscopy 10 years ago done at [facility]. This was normal. No family hx of colon cancer. No complaints. All questions regarding procedure answered. Will go ahead and schedule screening colonoscopy. BMI 20.0-20.9, adult 05/15/2020 Acquired hallux valgus 01/12/2017 Osteoarthritis of ankle or foot 01/12/2017 Metatarsalgia 01/12/2017 Spondylolisthesis 09/29/2016 Immunizations Immunization Administration Dates Next Due Pfizer SARS-CoV-2 Monovalent Vaccination (12+ Yrs) PURPLE 08/30/2020,08/09/2020 Social History Tobacco Use Types Packs/Day Years [...] on file Legal Sex Female 2:50 AM SOCIOLOGY PROFESSOR Gender Identity Female 07/29/2021 2:22 PM SOCIOLOGY PROFESSOR Sexual Orientation Straight 07/29/2021 2: 22 PM SOCIOLOGY PROFESSOR Last Filed Vital Signs Vital Sign Reading [...] 04/19/2024 9:52 AM CDT Plan of Treatment Not on file Procedures Procedure Name Priority Date/Time Associated Diagnosis Comments PAP AND HIGH RISK HPV, REFLEX TO GENOTYPING Routine 01/12/2022 10:26 AM CDT COLONOSCOPY 07/01/2020 7:58 AM SOCIOLOGY PROFESSOR from Last 3 Months or Most Recently Relevant to Health Maintenance Results * Pap and High Risk HPV, reflex to Genotyping (01/12/2022 10:26 AM CDT) Pap test 01/12/2022 10:2 6 AM CDT 01/12/2022 11:28 AM CDT Narrative 01/19/2022 11:30 AM CDT EPIC results best viewed via link to PDF [facility] [place] [address] Note to Patients: This report may contain [...] the details. CYTOPATHOLOGY REPORT FINAL Patient Name: JEANA FARFAN Gender: Gautam : 1960 (Age: 61) Address: [address] [place] [id number] [facility] #: [id number] Service: AGRICULTURAL PRODUCTION ENGINEER Location: Patient Type: [facility] SPEC[facility] Taken: 01/12/2022 Received: 01/12/2022 Accessioned: 01/13/2022 [...] 68. This HPV test was performed at [facility] in [place], [place] utilizing the Gen-Probe Aptima assay. /01/19/2022 11:30 JOSS Soriano(ASCP) Report Electronically Reviewed and [...] mass. The HPV test was performed by [facility], [address] [place] [address]. Report Images and scanned documents, if included only viewable in PDF version The performance characteristics of some immunohistochemical stains, in-situ hybridization and fluorescence in-situ hybridization tests and immunophenotyping by flow cytometry cited in this report (if any) were determined by the Surgical Pathology Department at [facility] as part of an ongoing quality assurance supervisor body program and in compliance with federally mandated [...] determined by the Surgical Pathology Department of [facility]. It has not been cleared or approved by the U. S. Food and Drug Administration. [facility] Lakhwinder Giordano MD LAB CYTOLOGY ORDERABLES Final Result * COLONOSCOPY (07/01/2020 7:58 AM SOCIOLOGY PROFESSOR) Anatomical Region Laterality Modality Other Narrative Procedure Note Roney Perez MD - 07/01/2020 7:[address] [facility] Patient Name: Jeana Farfan Procedure Date: 07/01/2020 7:58 AM Date of : 1960 Admit Type: Outpatient Age: 60 Gender: Female Attending MD: Roney Perez M.D. Room: [facility] ENDOSCOPY ROOM 1 Note Status: Finalized Patient [...] passed under direct vision.The Pediatric Colonoscope PCF-H190L [id number] was introduced through the anus and advanced [...] 7:58 AM Procedure Code(s): --- Professional --- 12637, Colonoscopy, flexible; with biopsy, single or multiple Diagnosis Code(s): --- Professional --- Z12.11, Encounter for screening for malignant neoplasm of colon K64.8, Other hemorrhoids D12.0, Benign neoplasm of cecum K62.1, Rectal polyp CPT copyright 2017 [employer]. All rights reserved. The codes documented in this report are preliminary and upon technical support director reviewmay be revised to meet current compliance requirements. Recognized by the [place] [employer] for promoting quality in endoscopy Roney Perez MD ENDOSCOPY PROCEDURES Final Result from Last 3 Months or Most Recently Relevant to Health Maintenance [place] [address] [facility] CLAIMS MEDICARE [facility] Advance Directives For more information, please contact: [phone] * Full Code (Latest Code Status on [...] 7:56 AM 07/01/2020 7:56 AM Care Teams Medicare Compliance Auditor Relationship Specialty Start Date End Date Demetria Mckeon MD [address] [address] PCP - General Family Medicine 08/10/21
--- OUTSIDE RECORDS SUMMARY | 2024-12-06 05:08 | XMS_ITS | Clinical Summary ---
Author Organization [facility] Address [facility] [place] [address] Care Team Providers Care Java Programming Professor Name Role Phone Malcolm Gaona DO Primary [...] after bone scan next year. 11/21/2020 Active [place]-3 Fatty Acids (FISH OIL) 500 MG capsule [...] Department Care Team Description 10/12/2024 11:42 AM PROJECT ARCHITECT - 10/12/2024 11:59 PM [facility] Hospital Encounter [facility] [place] [address] Vitor Marcus NP Discharge Disposition: Home or [...] Sex Assigned at Female 10/12/2024 11:37 AM PROJECT ARCHITECT Legal Sex Female 4:03 PM CDT Gender Identity Not on file Sexual Orientation Not on file Last Filed Vital Signs Vital Sign Reading Time Taken Comments Blood Pressure 122/69 07/03/2024 10:30 AM PROJECT ARCHITECT Pulse 85 07/03/2024 10:30 AM PROJECT ARCHITECT Temperature 36.1 C (97 F) 07/03/2024 10:30 AM PROJECT ARCHITECT Respiratory Rate 16 07/03/2024 10:3 0 AM PROJECT ARCHITECT Oxygen Saturation 100% 07/03/2024 10: 30 AM PROJECT ARCHITECT Inhaled Oxygen Concentration - - Weight 52.1 kg (114 lb 13.8 oz) 07/03/2024 6:57 AM PROJECT ARCHITECT Height 168.9 cm (5' 6.5 ) 07/03/2024 6:57 AM PROJECT ARCHITECT Body Mass Index 18.26 07/03/2024 6:57 AM PROJECT ARCHITECT Plan of Treatment Health Maintenance Due Date [...] this topic Medical Devices Implanted Type Area Kettle Room Helper Device Identifier Shelf Expiration Date Model / Serial / Lot Snap Off Screw 2.0mm X 12mm Implanted:Qty: 1 on 06/09/2021 by Justo Prabhakar DPM at [facility] Screw Right: Toe Animating Touch [id number] / / Description:2nd metatarsal Cannulated Screw Implanted:Qty: 1 on 07/03/2024 by Justo Prabhakar DPM at [facility] Screw Left: Foot [employer] [id number] 07/28/2030 [id number] / / [id number] [employer] Edge Screw Implanted:Qty: 1 on 07/03/2024 by Justo Prabhakar DPM at [facility] Screw Left: Toe [employer] [id number] 02/29/2032 [id number] / / [id number] Description:2ND TOE Procedures Procedure Name Priority Date/Time Associated Diagnosis Comments MG SCREENING W LU JENSEN DIGI Routine 10/12/2024 12:05 PM PROJECT ARCHITECT Encounter for screening mammogram for malignant neoplasm of breast BONE DENSITY/DEXA Routine 10/07/2022 11: 02 AM PROJECT ARCHITECT Encounter for screening for osteoporosis from Last 3 Months or Most Recently Relevant to Health Maintenance Results * MG SCREENING W LU JENSEN DIGI (10/12/2024 12:05 PM PROJECT ARCHITECT) Anatomical Region Laterality Modality Breast Bilateral Mammography 10/12/2024 1:09 PM PROJECT ARCHITECT Impressions 10/12/2024 1:10 PM PROJECT ARCHITECT ===== IMPRESSION: ===== 1. Stable mammographic appearance with no new findings to suggest malignancy in either breast. Assessment: ACR BI-RADS 2 - BENIGN FINDING(S) Recommendation: 1:Routine Screening Bilateral Comments: Ordered By: VITOR MARCUS Interpreted By: Yuri Milner MD, 10/12/2024 1:09 PM Narrative 10/12/2024 1:10 PM PROJECT ARCHITECT [facility] [address] [place] [address] Examination: Digital bilateral screening mammogram with 3D [...] breast to suggest malignancy. us Vitor Marcus PLANNING DIVISION SUPERINTENDENT MAMMO Final Re sult * BONE DENSITY/DEXA (10/07/2022 11:02 AM PROJECT ARCHITECT) Anatomical Region Laterality Modality Bone Mammography 10/07/2022 11:0 6 AM PROJECT ARCHITECT Impressions 10/07/2022 11:07 AM PROJECT ARCHITECT IMPRESSION: WHO Classification: osteopenia. 4.5% interval decrease in bone mineral density of the right hip from 2020 comparison. FRAX: 1.0% chance of hip fracture and 8.2% chance of major osteoporotic fracture over the next 10 years. Referred By: VITOR MARCUS Interpreted By: Yuri Milner MD, 10/07/2022 11:06 AM Narrative 10/07/2022 11:07 AM PROJECT ARCHITECT Examination: Bone Density Axial Exam Date/Time: 10/07/2022 [...] Milner MD, 10/07/2022 11:06 AM Vitor Marcus PLANNING DIVISION SUPERINTENDENT DEXA Final Re sult from Last 3 Months or Most Recently Relevant to Health Maintenance Insurance MEDICARE [facility] Care Teams Java Programming Professor Relationship Specialty Start Date End Date Malcolm Gaona DO [address] [address] PCP - General 06/27/24
--- OUTSIDE RECORDS SUMMARY | 2024-12-06 05:08 | XMS_ITS | Encounter Summary ---
Author Organization [facility] Address [address] [place] [id number] Care Team Providers Care Machine Wood Sander Name Role Phone Nitesh Henry MD Primary Care Provider [phone] Malcolm Gaona DO Primary Care Provider [phone] Encounter Details Date Type Department Care Team (Late st Contact Info) Description 06/25/2024 [facility] Message Enc [facility] [address] [facility], [facility] Provider Please Call us at your earliest convenience Social History Tobacco Use Types Packs/Day Years Used Date Smoking Tobacco: Never Smokeless Tobacco: Never Comments No Sex and Gender Information Value Date Recorded Sex Assigned at Female 10/12/2024 11:37 AM DENTURE PACKER Legal Sex Female 4:03 PM CDT Gender Identity Not on file Sexual Orientation Not on file documented as of this encounter Plan of Treatment Not on file documented as of this encounter Visit Diagnoses Not on filedocumented in this encounter Care Teams Machine Wood Sander Relationship Specialty Start Date End Date Nitesh Henry MD [address] [id number] PCP - General 09/30/22 06/26/24 Malcolm Gaona DO 3 [facility] [address] [place] [address] PCP - General 06/27/24 documented as of this encounter
--- OUTSIDE RECORDS SUMMARY | 2024-12-06 05:08 | XMS_ITS | Encounter Summary ---
Author Organization [facility] Address [address] [facility] [place] [address] Care Team Providers Care Sales Program Manager Name Role Phone Unavailable Primary Care Provider Unavailabl e Encounter Details Date Type Department Care Team (Late st Contact Info) Description 01/21/[address] [facility] - DermPath Lab [address] [place] [id number] Krys Garcia MD [address] [place] [address] [place] [phone] Neoplasm of uncertain behavior of skin Social [...] AM CDT) Case Report Dermatopathology Report Case: [id number] Authorizing Provider: Krys Garcia MD Collected: 01/21/2023 03:33 AM Ordering Location: [facility] DermPath Lab Received: 01/24/2023 01:21 [...] characteristic determined by the Dermatopathology Laboratory at [facility], directed by Dr. Kathy San. These tests need not be, and therefore are not, approved by the [place] Food and Drug Administration. The tests are used for clinical purposes. Billing Codes Specimen Charges Stain Charges 89000 1 3 1:53 PM CDT DERMATOPATHOLOGY LABORATORY Embedded Images 3 1:53 PM CDT DERMATOPATHOLOGY LABORATORY Pathology/Cytolo gy TISSUE SPECIMEN FROM SKIN / Unknown 01/21/2023 3:33 AM CDT 01/24/2023 1:21 PM CDT us Krys Garcia MD LAB - PATHOLOGY/CYTOLOGY ORDERAB LES Final Result DERMATOPATHOLOGY LABORATORY [facility] - Department of Dermatology [address], [address] [phone] documented in this encounter Visit Diagnoses Diagnosis Neoplasm of uncertain behavior of skin documented in this encounter
--- OUTSIDE RECORDS SUMMARY | 2024-12-06 05:08 | XMS_ITS | Clinical Summary ---
Author Organization [facility] Address [address] [place] [address] Care Team Providers Care Donor Specialist Name Role Phone Unavailable Primary Care Provider Unavailabl e Source Comments [facility],non-owned Affiliates and Associated Physician Practices is amultiple site organization consisting of ambulatory clinics and hospital sitesin [place], [place], [place] and [place]. This disclosure is being madepursuant to the Care Everywhere program and may not contain all information available regarding this patient. Last updated 18.[facility] [employer] Social History Tobacco Use Types Packs/Day Years [...] patient's age to complete [place] [address] JAREN
== END 2024-12-06 05:14 | disposition home or self-care (01) ==
LOC: ANHED 05:06
PROVIDERS: Emergency Provider Emergency Medicine
DX: N39.0 Urinary tract infection, site not specified (principal)
CPT/HCPCS: 81001; 87077; 87086; 87186; 99283; A9270